=== PATIENT | female | born 1955 | race Caucasian/White ===

== ENCOUNTER 2020-06-17 17:01 | Emergency (ER) | payer MEDICARE, MEDICAID, SELFPAY ==
--- NOTE | 2020-06-17 | XR_ITS ---
EXAMINATION: LEFT HAND.. CLINICAL INFORMATION: Cat bite COMPARISON: None TECHNIQUE: 4 views FINDINGS: No fracture. No dislocation. No radiopaque foreign body. There is no air in the soft tissues. IMPRESSION: Normal left hand.
--- NOTE | 2020-06-17 | XR_ITS ---
EXAMINATION: RIGHT HAND CLINICAL INFORMATION: Cat bite COMPARISON: None TECHNIQUE: 3 views FINDINGS: No fracture. No dislocation. There is no radiopaque foreign body. Soft tissue swelling seen at the dorsum of the wrist. No air in the soft tissue. IMPRESSION: Normal right hand.
[2020-06-17 17:56] VITALS: BP 152/62; PULSE 83; RESP 16; TEMP 36.8; O2SAT 100; BMI 23.3
--- NOTE | 2020-06-17 17:56 | ED.ANIMALBIT ---
HPI - Animal Bite General Chief Complaint: Animal Bite Stated Complaint: cat scratch Time Seen by Provider: 06/17/20 17:54 History of Present Illness HPI narrative: patient complains of scratches and bites to both back of the hands and both forearms in breaking up a cat fight today The cats are her pets and are up-to-date on rabies vaccination, she is not up-to-date on tetanus immunization and does not recall her last tetanus shot Related Data Previous Rx's Medication Instructions Recorded amoxicillin-pot clavulanate 1 tab PO BID #10 tab 06/17/20 [Augmentin] Allergies Allergy/AdvReac Type Severity Reaction Status Date / Time prochlorperazine Allergy Unknown UNKNOWN Unverified 06/03/20 19:19 [From COMPAZINE] Review of Systems Review of Systems: no joint pain no numbness no weakness no discharge from wound no fever no chills PMFSH Past Medical History Medical History (Updated 06/17/20 @ 18:03 by JOVANNA Hdz) No known health problems Physical Exam Vital Signs and I&O and Narrative: Vital Signs and I&O: Vital Signs Temp 98.2 F 06/17/20 17:56 Pulse 83 06/17/20 17:56 Resp 16 06/17/20 17:56 BP 152/62 H 06/17/20 17:56 Pulse Ox 100 06/17/20 17:56 Intake & Output 06/16/20 06/17/20 06/17/20 18:59 06:59 18:59 Weight 63.503 kg Body Mass Index 23.3 there are multiple scratches and abrasions on dorsal forearms and some to dorsal hands there is no swelling, there is full range of motion in wrists hands and fingers, there is no laceration deep enough to require sutures, all is neurovascular intact distal Course Course Hospital Course: wounds are cleansed and irrigated, patient got a tetanus shot and prophylactic antibiotic Discharge Plan Discharge Clinical Impression: Cat bite involving extremity Patient Disposition: Home, Self-Care Additional Instructions: take preventative antibiotic Augmentin for 5 days You got a tetanus shot Take probiotics available [id number] to prevent antibiotic associated diarrhea Return any time for any sign of infection, swelling, redness, red stripe up arm, increased pain, fever, discharge from wound, any worse condition or any concerns Prescriptions: New amoxicillin-pot clavulanate [Augmentin] 875-125 mg tablet 1 tab PO BID Qty: 10 RF: 0
[2020-06-17] MEDS: Amoxicillin/Potassium Clav 875 MG TABLET PO (19:02)
[2020-06-17 19:50] VITALS: BP 128/69; PULSE 87; RESP 16; TEMP 36.9; O2SAT 98
== END 2020-06-17 20:30 | disposition home or self-care (01) ==
PROVIDERS: Emergency Provider Emergency Medicine Emergency Medical Services
DX: S40.872A Other superficial bite of left upper arm, initial encounter (principal); S40.871A Other superficial bite of right upper arm, initial encounter; S60.512A Abrasion of left hand, initial encounter; S60.511A Abrasion of right hand, initial encounter; S50.812A Abrasion of left forearm, initial encounter; S50.811A Abrasion of right forearm, initial encounter; W55.01XA Bitten by cat, initial encounter; Y93.89 Activity, other specified; Y92.019 Unspecified place in single-family (private) house as the place of occurrence of the external cause; Y99.9 Unspecified external cause status
CPT/HCPCS: 73110; 73130; 90471; 90715; 99284

== ENCOUNTER 2020-10-22 13:46 | Outpatient (REF) | payer MEDICARE, MEDICAID, SELFPAY | END 2020-10-22 13:47 | disposition home or self-care (01) | LOC: HO.LAB 13:46 | PROVIDERS: Visit Provider Internal Medicine | DX: Z20.822 Contact with and (suspected) exposure to COVID-19 (principal) | CPT/HCPCS: 36415; C9803; U0003; U0005 ==

== ENCOUNTER 2021-07-27 13:03 | Outpatient (REF) | payer MEDICARE, MEDICAID, SELFPAY | END 2021-07-27 13:04 | disposition home or self-care (01) | LOC: HO.LAB 13:03 | PROVIDERS: Visit Provider Internal Medicine | DX: Z20.822 Contact with and (suspected) exposure to COVID-19 (principal) | CPT/HCPCS: C9803; U0003; U0005 ==

== ENCOUNTER 2021-10-21 06:35 | Outpatient (REF) | payer MEDICARE, MEDICAID, SELFPAY ==
[2021-10-21 08:01] LABS: HDL Cholesterol 72 mg/dL
[2021-10-21 08:33] LABS: Cholesterol 198 mg/dL; LDL Cholesterol Calculated 112 mg/dl; Triglycerides 74 mg/dL
== END 2021-10-21 06:36 | disposition home or self-care (01) ==
LOC: HO.LAB 06:35
PROVIDERS: PCP Family Medicine; Visit Provider Family Medicine
DX: E04.2 Nontoxic multinodular goiter (principal)
CPT/HCPCS: 36415; 80061

== ENCOUNTER 2022-12-25 17:41 | Emergency (ER) | payer MEDICARE, MEDICAID, SELFPAY ==
[2022-12-25 18:02] VITALS: BP 158/78; PULSE 90; RESP 18; TEMP 36.7; O2SAT 99; BMI 24.0
--- NOTE | 2022-12-25 18:09 | ED.GENADULT ---
HPI - General Adult General Chief complaint: Anxiety <JOVANNA Monroe - Last Filed: 01/01/23 09:35> Stated complaint: anxiety <JOVANNA Monroe - Last Filed: 01/01/23 09:35> Time Seen by Provider: 12/25/22 20:14 <JOVANNA Monroe - Last Filed: 01/01/23 09:35> Source: patient <Bryn Pitts MD - Last Filed: 12/25/22 20:35> Mode of arrival: ambulatory <Bryn Pitts MD - Last Filed: 12/25/22 20:35> Limitations: no limitations <Bryn Pitts MD - Last Filed: 12/25/22 20:35> History of Present Illness HPI narrative: 67-year-old female with history of anxiety, reflux, postnasal drip presents with. The time where she feels like she has difficulty swelling. She notices it mostly in the evening. Can be with liquids or solids. She reports reports having to be more cerebral about thinking had a swallow. She denies any difficulty breathing or the sensation that she can not breathe due to the throat closing patient reports having started Wellbutrin 150 mg daily approximately 3 months ago for anxiety. This was recently increased approximately 3 weeks ago to 300 mg. It has helped some of her anxiety related symptoms. She was wondering if this could actually be causing her sensation of throat closing. When this does occur, she notes that her anxiety level significantly increased. She reports a significant history of reflux and is taking Nexium daily. She also reports seasonal allergies for which he takes Fartun. She reports postnasal drip on a regular basis. She currently uses saline flushes and as mentioned above Fartun but no nasal steroids. <Bryn Pitts MD - Last Filed: 12/25/22 20:35> Related Data Home medications: Previous Rx's Medication Instructions Recorded amoxicillin 875 mg-potassium 1 tab PO BID #10 tabs 06/17/20 clavulanate 125 mg tablet (Augmentin) famotidine 20 mg tablet 20 mg PO BEDTIME #30 tabs 12/25/22 fluticasone propionate 50 1 spray intranasal DAILY #16 grams 12/25/22 mcg/actuation nasal spray,suspension (Flonase Allergy Relief) <JOVANNA Monroe - Last Filed: 01/01/23 09:35> Allergies/adverse reactions: Allergies Allergy/AdvReac Type Severity Reaction Status Date / Time prochlorperazine Allergy Unknown UNKNOWN Verified 06/17/20 18:19 [From COMPAZINE] <JOVANNA Monroe - Last Filed: 01/01/23 09:35> [facility] Past Medical History Medical History: Medical History No known health problems <JOVANNA Monroe - Last Filed: 01/01/23 09:35> Social History Social History: Social History Alcohol intake: never Advance Directives: No Advance Directives Information Provided: No <JOVANNA Monroe - Last Filed: 01/01/23 09:35> Physical Exam ED Vital Signs: Vital Signs - 24 hr 12/25/22 18:02 Temperature 98.0 F Pulse Rate 90 Respiratory Rate 18 Blood Pressure 158/78 H Pulse Oximetry 99 Oxygen Delivery Method Room Air BMI result Body Mass Index 24.0 <JOVANNA Monroe - Last Filed: 01/01/23 09:35> Vital Signs - 24 hr 12/25/22 18:02 Temperature 98.0 F Pulse Rate 90 Respiratory Rate 18 Blood Pressure 158/78 H Pulse Oximetry 99 Oxygen Delivery Method Room Air BMI result Body Mass Index 24.0 <Bryn Pitts MD - Last Filed: 12/25/22 20:35> GEN: Well developed, no acute distress, alert, oriented HEENT: Normocephalic, atraumatic, normal external ears, nose appears normal, slight cobblestoning of the oropharynx, no tonsillar enlargement or exudate. There is no evidence of or pharyngeal edema. There is no wheezing or stridor. Eyes: Normal to appearance Neck: Supple, 1 small left-sided anterior cervical lymphadenopathy, no thyromegaly, trachea mobile Respiratory: Talks in complete sentences, no respiratory distress Extremities: No clubbing cyanosis or edema Neurologic: No focal neurologic deficits, cranial nerves 2-12 intact, gait normal Skin: No rash <Brny Pitts MD - Last Filed: 12/25/22 20:35> Course Course Course Narrative: RME: 67 yold female with pmh of anixety presents to the ED for increased anxiety and has throat tightness when she has aneity. patient was sent by DECATING MACHINE OPERATOR to make sure no anyphylaxis. patient denies no rash, chest pain, shortness of breath, itchiness, fever, or chills. patient has had normal swallowing test last year. denies choking on food. patient presently is asympomatic. Oral exam is normal. negative for swelling of lips, uvula, or tongue. skin negative for rahs <JOVANNA Monroe - Last Filed: 01/01/23 09:35> Reevaluation(s) Reevaluation #1: Patient's symptoms are most likely related to either reflux and or postnasal drip. Patient also has recently started significant dose of NSAIDs for left wrist related problems. Patient is already on Nexium. She will add famotidine at night. I have also recommended starting Flonase daily on top of her Fartun. <Bryn Pitts MD - Last Filed: 12/25/22 20:35> Time: 20:32 <Bryn Pitts MD - Last Filed: 12/25/22 20:35> Medical Decision Making Medical Decision Making MDM Narrative: 67-year-old female presents with. Of difficulty swallowing. This occurs mostly at night. Examination revealed no oropharyngeal edema, erythema, cyclops sounding was noticed. There is no thyromegaly. Her trachea was mobile, a slight lymphadenopathy in left anterior cervical chain. I suspect that her symptoms are mostly related to postnasal drip and/or reflux. We have talked about adding H2 dong and nasal steroid. We also talked about adding a pillow at night for gravity. She will continue nasal is saline rinses. She will follow-up with her primary care provider. <Bryn Pitts MD - Last Filed: 12/25/22 20:35> Differential Diagnosis Differential Diagnoses: The differential diagnosis associated with the presentation includes (Reflux, postnasal drip, allergies, sulfa GS spasm, anxiety, stress) <Bryn Pitts MD - Last Filed: 12/25/22 20:35> Tests considered The following testing was considered but not selected: Ultrasound, soft tissue x-ray <Bryn Pitts MD - Last Filed: 12/25/22 20:35> Discharge Plan Discharge Clinical Impression: Difficulty in swallowing <JOVANNA Monroe - Last Filed: 01/01/23 09:35> Patient Disposition: Home, Self-Care <JOVANNA Monroe - Last Filed: 01/01/23 09:35> Instructions: Dysphagia (ED) <JOVANNA Monroe - Last Filed: 01/01/23 09:35> Additional Instructions: On top of your current therapy, I am recommending Flonase on a daily basis for possible postnasal drip. I am also recommending adding famotidine 20 mg at night for reflux related symptoms. He should continue her your Fartun as well as your Nexium. <JOVANNA Monroe - Last Filed: 01/01/23 09:35> Prescriptions: New famotidine 20 mg tablet 20 mg PO BEDTIME Qty: 30 0RF fluticasone propionate [Flonase Allergy Relief] 50 mcg/actuation spray,suspension 1 spray intranasal DAILY Qty: 16 0RF Rx Instructions: administer into each nostril No Action amoxicillin-pot clavulanate [Augmentin] 875-125 mg tablet 1 tab PO BID Qty: 10 0RF Rx Instructions: 1 tablet twice a day for 5 days to prevent infection <JOVANNA Monroe - Last Filed: 01/01/23 09:35> Referrals: Physician,Unknown J [Primary Care Provider] - <JOVANNA Monroe - Last Filed: 01/01/23 09:35> Interventions: ED Discharge Assessment Last Done: 12/25/22 20:51 <JOVANNA Monroe - Last Filed: 01/01/23 09:35> Discharge Date/Time: 12/25/22 20:52 <JOVANNA Monroe - Last Filed: 01/01/23 09:35>
[2022-12-25 20:40] VITALS: BP 161/57; PULSE 76; RESP 18; TEMP 36.7; O2SAT 99
== END 2022-12-25 20:52 | disposition home or self-care (01) ==
PROVIDERS: Emergency Provider Emergency Medicine
DX: R13.10 Dysphagia, unspecified (principal); F41.1 Generalized anxiety disorder; F43.0 Acute stress reaction; Z79.899 Other long term (current) drug therapy
CPT/HCPCS: 99282; 99283

== ENCOUNTER 2025-07-27 20:57 | Inpatient (IN) | payer MEDICARE, SELFPAY ==
--- NOTE | ~2025-07-27 | XR_ITS ---
CLINICAL HISTORY: constipation x 1 week 1 view abdomen Comparison: None provided Findings: No pneumoperitoneum or pneumatosis. Mild fecal loading in the right colon. No abnormal calcifications. No acute fractures. IMPRESSION: The bowel gas pattern is within normal limits. Mild fecal loading in the right colon. This document has been electronically signed by: Fernando Leija MD on 07/27/2025 22:18:30
--- NOTE | ~2025-07-27 | CT_ITS ---
CLINICAL HISTORY: RLQ abd pain CT abdomen and pelvis with contrast Comparison: CR - XR KUB - 07/27/25 21:55 EST Findings: The lung bases are clear. There are small cysts within the left kidney. Kidneys enhance symmetrically and there is no hydronephrosis. No bowel obstruction, pneumoperitoneum, or pneumatosis. Uterus and adnexa are unremarkable. The appendix is retrocecal, measures up to 8 mm and mildly hyperemic. Series 7, image 33. No significant periappendiceal stranding. No free fluid. No abscess. The bones are intact. IMPRESSION: Borderline enlarged and mildly hyperemic appendix. Findings are equivocal, but could represent early appendicitis. This document has been electronically signed by: Fernando Leija MD on 07/28/2025 02:38:51
[2025-07-27 21:06] VITALS: BP 122/57; PULSE 112; RESP 16; TEMP 37; O2SAT 95; BMI 22.2
--- NOTE | 2025-07-27 21:11 | ECG_ITS ---
Test Reason : ABDOMINAL PAIN Blood Pressure : */* mmHG Vent. Rate : 101 BPM Atrial Rate : 101 BPM P-R Int : 144 ms QRS Dur : 134 ms QT Int : 386 ms P-R-T Axes : 71 89 34 degrees QTcB Int : 500 ms Sinus tachycardia with frequent Premature ventricular complexes Right bundle branch block Abnormal ECG No previous ECGs available Referred By: Generic ED Physician Electronically Signed By: ENRIQUE BAUTISTA MD
[2025-07-27 21:44] LABS: Hematocrit 42.8 % (37.0-47.0); Hemoglobin 14.5 g/dl (12.0-16.0); Imm Gran Abs Auto 0.02 X10*3/uL (0.00-0.03); Imm Gran Pct Auto 0.2 % (0.0-0.4); Lymphocytes Absolute Auto 0.3 X10*3/uL (1.2-4.9); MANUAL DIFF FLAG SCAN; Mean Corpuscular HGB Conc 33.9 g/dl (31.0-35.0); Mean Corpuscular Hemoglobin 31.0 pg (27.0-33.0); Mean Corpuscular Volume 91.5 fL (80.0-98.0); NRBC Abs Auto 0.000 X10*3/uL (0.0-0.012); NRBC Pct Auto 0.0 /100WBC (0.0-0.2); Platelet Count 304 X10*3/uL (160-400); Red Blood Count 4.68 X10*6/uL (4.20-5.50); SCAN SMEAR FLAG 1; White Blood Count 11.3 X10*3/uL (4.8-10.8)
[2025-07-27 21:50] LABS: Alanine Aminotransferase 16 U/L (0-31); Albumin Level 4.5 g/dL (3.5-5.0); Alkaline Phosphatase 64 U/L (39-117); Anion Gap 14 (12-20); Aspartate Amino Transferase 21 U/L (5-31); Blood Urea Nitrogen 9 mg/dL (9-16); Calcium 9.7 mg/dL (8.4-10.2); Carbon Dioxide 24 mmol/L (22-29); Chloride 106 mmol/L (96-108); Creatinine Clr Calc Pharmacy 63.8; Estimated Glomerular Filt Rate > 60; Lipase 13 U/L (8-78); Magnesium 1.9 mg/dL (1.6-2.6); Potassium 3.7 mmol/L (3.3-5.1); Sodium 140 mmol/L (135-145); Total Protein 7.2 g/dL (6.5-8.0)
[2025-07-27 21:57] LABS: Troponin-I High Sensitivity 3.1 ng/L (<3.5-17.0)
--- OUTSIDE RECORDS SUMMARY | 2025-07-27 22:05 | XMS_ITS | Encounter Summary ---
Author Organization [facility] Address [address] [place] [address] Phone Care Team Providers Care Extractions Technician Name Role Phone Aliyah Broderick MD Primary Care Provider [phone] Audelia Vyas PA-C Unavailable [phone] Aliyah Broderick MD Unavailable Encounter Details Date Type Department Care Team (Late st Contact Info) Description 12/13/2022 Procedure Pass [address] [address] Social History Tobacco Use Types Packs/Day Years Used Date Smoking Tobacco: Never Smokeless Tobacco: Never Alcohol Use Standard Drinks/Week Comments Yes 5 (1 standard drink = 0.6 oz pur e alcohol) Comments No Sex and Gender Information Value Date Recorded Sex Assigned at Female 01/04/2022 2:29 AM EDT Legal Sex Female 9:20 AM EST Gender Identity Female 01/04/2022 2:29 AM EDT Sexual Orientation Not on file documented as of this encounter Plan of Treatment Upcoming Encounters Date Type Department Care Team (Late st Contact Info) Description 09/16/2025 1:45 PM EST Appointment [address] [address] Aliyah Broderick MD [address] [facility] [address] [place] [address] [email or web address] 11/25/2025 2:00 PM EDT Office Visit [facility] [place] [facility] [address] [place] [address] Aliyah Broderick MD [address] [address] [email or web address] documented as of this encounter Visit Diagnoses Not on filedocumented in this encounter Additional Health Concerns Assessment Noted Time PHQ-9 Depression Total Score: 9 02/16/20 23 12:42 PM EDT PHQ-2 Depression Total Score: 2 02/16/20 23 12:42 PM EDT documented as of this encounter Care Teams Extractions Technician Relationship Specialty Start Date End Date Aliyah Broderick MD [address] [address] PCP - General Family Medicine 10/03/21 Audelia Vyas PA-C [address] [place] [address] Physician Chef Head Hematology 11/15/21 Aliyah Broderick MD [address] [place] [phone] Insurance Assigned Provider 12/22/23 06/27/25 documented as of this encounter Additional Source Comments The information contained in this document represents components of the legal health record. It is not the complete legal health record.[facility]
[2025-07-27 22:06] VITALS: BP 145/50; PULSE 94; RESP 16; TEMP 37.4; O2SAT 96
--- OUTSIDE RECORDS SUMMARY | 2025-07-27 22:06 | XMS_ITS | Encounter Summary ---
Author Organization [facility] Address [address] [address] Phone Care Team Providers Care Panel Machine Operator Name Role Phone Aliyah Broderick MD Primary Care Provider [phone] Audelia Vyas PA-C Unavailable [phone] Aliyah Broderick MD Unavailable Encounter Details Date Type Department Care Team (Late st Contact Info) Description 01/04/2022 Procedure Pass [facility] Admitting Dept Virtual Department [address] [place] [address] Social History Tobacco Use Types Packs/Day Years [...] on file documented as of this encounter Functional Status * Calculated C-SSRS Risk Score (Lifetime/Recent) Answer Date of Assessment Author No Risk Indicated 01/04/2022 2:27 AM EDT Marshall Shabazz RN * [place] Suicide Severity Rating Scale (Screener/Recent Self-Report) Question Answer Date of Assessment Author 1. Wish to be (Past 1 Month) No 022 2:27 AM EDT Cliff Shabazz RN 2. Non-Specific Active Suici gayatri Thoughts (Past 1 Month) No 01/04/2022 2:27 AM EDT Cliff Shabazz, RN 6. Suicidal Behavior (Lifetime) No 2 2:27 AM EDT Cliff Shabazz RN documented as of this encounter Plan of Treatment Upcoming Encounters Date Type Department Care Team (Late st Contact Info) Description 09/16/2025 1:45 PM EST Appointment [facility] [address] [place] [address] Aliyah Broderick MD [address] [place] [address] [email or web address] 11/25/2025 2:00 PM EDT Office Visit [facility] [address] [place] [phone] Aliyah Broderick MD [address] [place] [phone] documented as of this encounter Visit Diagnoses Not on filedocumented in this encounter Care Teams Panel Machine Operator Relationship Specialty Start Date End Date Aliyah Broderick MD [address] [place] [address] PCP - General Family Medicine 10/03/21 Audelia Vyas PA-C [address] [place] [email or web address] Physician Customer Service Officer Hematology 11/15/21 Aliyah Broderick MD [address] [place] [phone] Insurance Assigned Provider 12/22/23 06/27/25 documented as of this encounter Additional Source Comments The information contained in this document represents components of the legal health record. It is not the complete legal health record.[facility]
--- OUTSIDE RECORDS SUMMARY | 2025-07-27 22:06 | XMS_ITS | Encounter Summary ---
Author Organization [facility] Address [address] [place] [address] Phone Care Team Providers Care Pharmaceutical Sales Representative Name Role Phone Aliyah Broderick MD Primary Care Provider [phone] Audelia Vyas PA-C Unavailable [phone] Aliyah Broderick MD Unavailable Encounter Details Date Type Department Care Team (Late st Contact Info) Description 10/27/2021 Procedure Pass [address] [address] Social History Tobacco Use Types Packs/Day Years Used Date Smoking Tobacco: Never Smokeless Tobacco: Never Alcohol Use Standard Drinks/Week Comments Yes 0 (1 standard drink = 0.6 oz pur e alcohol) Rare Comments No Sex and Gender Information Value Date Recorded Sex Assigned at Female 01/04/2022 2:29 AM EDT Legal Sex Female 9:20 AM EST Gender Identity Female 01/04/2022 2:29 AM EDT Sexual Orientation Not on file documented as of this encounter Plan of Treatment Upcoming Encounters Date Type Department Care Team (Late st Contact Info) Description 09/16/2025 1:45 PM EST Appointment [address] [address] Aliyah Broderick MD 15 [facility] [address] [place] [address] 11/25/2025 2:00 PM EDT Office Visit [facility] [place] [facility] [address] [place] [address] Aliyah Broderick MD 15 [facility] [place] [address] [email or web address] documented as of this encounter Visit Diagnoses Not on filedocumented in this encounter Care Teams Pharmaceutical Sales Representative Relationship Specialty Start Date End Date Aliyah Broderick MD 15 [facility] [place] [address] PCP - General Family Medicine 10/03/21 Audelia Vyas PA-C [address] [place] [phone] Physician Director Of Software Development Hematology 11/15/21 Aliyah Broderick MD [address] [address] Insurance Assigned Provider 12/22/23 06/27/25 documented as of this encounter Additional Source Comments The information contained in this document represents components of the legal health record. It is not the complete legal health record.[facility]
--- OUTSIDE RECORDS SUMMARY | 2025-07-27 22:06 | XMS_ITS | Encounter Summary ---
Author Organization [facility] Address [address] [place] [address] Phone Care Team Providers Care Dramatic Teacher Name Role Phone Aliyah Broderick MD Primary Care Provider [phone] Audelia Vyas PA-C Unavailable [phone] Aliyah Broderick MD Unavailable Encounter Details Date Type Department Care Team (Late Contact Info) Description 10/27/2021 Ancillary Orders [facility],Outside Imaging [address] [place] [address] System, Provider Not In, [place] [address] Social History Tobacco Use Types Packs/Day Years Used Date Smoking Tobacco: Never Smokeless Tobacco: Never Alcohol Use Standard Drinks/Week Comments Yes 0 (1 standard drink = 0.6 oz pur e alcohol) Rare Comments Unknown Sex and Gender Information Value Date Recorded Sex Assigned at Female 01/04/2022 2:29 AM EDT Legal Sex Female 9:20 AM EST Gender Identity Female 01/04/2022 2:29 AM EDT Sexual Orientation Not on file documented as of this encounter Plan of Treatment Upcoming Encounters Date Type Department Care Team (Late Contact Info) Description 09/16/2025 1:45 PM EST Appointment [facility], [facility] [address] [place] [address] Aliyah Broderick MD 15 [facility] [address] [place], [place] [phone] 11/25/2025 2:00 PM EDT Office Visit [facility] [place] [facility] [address] [place] [address] Aliyah Broderick MD [address] [facility] [address] [place] [address] [email or web address] documented as of this encounter Results * Mammogram Outside (No Interpretation) (11/18/2020 12:00 AM EST) Narrative SYSTEMGENERATED, DOCUMENTATION - 10/27/2021 5:20 PM EST This study is for PACS storage only and not for interpretation. us Provider Not In System PhD IMG OUTSIDE IMAGING W /OUT INTERPRETATION Final Result * Mammogram Outside (No Interpretation) (10/20/2019 12:00 AM EST) Narrative SYSTEMGENERATED, DOCUMENTATION - 10/27/2021 5:20 PM EST This study is for PACS storage only and not for interpretation. us Provider Not In System PhD IMG OUTSIDE IMAGING W /OUT INTERPRETATION Final Result * Mammogram Outside (No Interpretation) (10/17/2018 12:00 AM EST) Narrative SYSTEMGENERATED, DOCUMENTATION - 10/27/2021 5:18 PM EST This study is for PACS storage only and not for interpretation. us Provider Not In System PhD IMG OUTSIDE IMAGING W /OUT INTERPRETATION Final Result * Mammogram Outside (No Interpretation) (09/06/2017 12:00 AM EST) Narrative SYSTEMGENERATED, DOCUMENTATION - 10/27/2021 5:19 PM EST This study is for PACS storage only and not for interpretation. us Provider Not In System PhD IMG OUTSIDE IMAGING W /OUT INTERPRETATION Final Result * Mammogram Outside (No Interpretation) (08/31/2016 12:00 AM EST) Narrative SYSTEMGENERATED, DOCUMENTATION - 10/27/2021 5:19 PM EST This study is for PACS storage only and not for interpretation. us Provider Not In System PhD IMG OUTSIDE IMAGING W /OUT INTERPRETATION Final Result * Mammogram Outside (No Interpretation) (08/17/2015 12:00 AM EST) Narrative SYSTEMGENERATED, DOCUMENTATION - 10/27/2021 5:17 PM EST This study is for PACS storage only and not for interpretation. us Provider Not In System PhD IMG OUTSIDE IMAGING W /OUT INTERPRETATION Final Result documented in this encounter Visit Diagnoses Not on filedocumented in this encounter Care Teams Dramatic Teacher Relationship Specialty Start Date End Date Aliyah Broderick MD [address] [address] PCP - General Family Medicine 10/03/21 Audelia Vyas PA-C [address] [place] [id number] Physician Share Holder Hematology 11/15/21 Aliyah Broderick MD [address] [address] Insurance Assigned Provider 12/22/23 06/27/25 documented as of this encounter Additional Source Comments The information contained in this document represents components of the legal health record. It is not the complete legal health record.[facility]
--- OUTSIDE RECORDS SUMMARY | 2025-07-27 22:06 | XMS_ITS | Encounter Summary ---
Author Organization [facility] Address [address] [place] [phone] Phone Care Team Providers Care Street Inspector Name Role Phone Aliyah Broderick MD Primary Care Provider [phone] Audelia Vyas PA-C Unavailable [phone] Aliyah Broderick MD Unavailable Encounter Details Date Type Department Care Team (Latest Contact Info) Description 03/28/2022 Transcribe Orders Virtual Department [address] [place] [address] [phone] Yuly Recio, PHARMACY ASSISTANT [address] [place] [address] [phone] [email or web address] Dysphagia, unspecified type (Primary Dx); Gastroesophageal reflux disease without esophagitis Social History Tobacco Use Types Packs/Day Years [...] Info) Description 09/16/2025 1:45 PM EST Appointment [facility] - [address] [address] Aliyah Broderick MD [address] [facility] [address] [place] [address] [email or web address] 11/25/2025 2:00 PM EDT Office Visit [facility] [address] [facility] [address] [place] [address] Aliyah Broderick MD [address] [facility] [address] [place] [address] [email or web address] documented as of this encounter Results * FL (Speech) Video Swallow Study (05/15/2022 10:20 AM EDT) Anatomical Region Laterality Modality Radio Fluoroscop y 05/15/2022 2:26 PM EDT Impressions 05/15/2022 2:27 PM EDT No penetration or aspiration demonstrated. Please see Department of Speech and Language Pathology report for further details. Fluoroscopy Time: One minute and 43 seconds 640 fluoroscopic images saved Narrative 05/15/2022 2:27 PM EDT FL (SPEECH) VIDEO SWALLOW STUDY History: Dysphagia COMPARISON: There are no prior studies available for comparison TECHNIQUE: Fluoroscopic assistance was provided to the speech therapist during administration of various consistencies of barium. FINDINGS: The oral and pharyngeal stages of swallowing will be reported separately by the Department of Speech and Language Pathology. No penetration or aspiration demonstrated. Procedure Note Aemlia Shabazz MD - 05/15/2022 FL (SPEECH) VIDEO SWALLOW STUDY History: Dysphagia COMPARISON: There are no prior studies available for comparison TECHNIQUE: Fluoroscopic assistance was provided to the speech therapistduring administration of various consistencies of barium. FINDINGS: The oral and pharyngeal stages of swallowing will be reported separatelyby the Department of Speech and Language Pathology. No penetration or aspiration demonstrated. IMPRESSION: No penetration or aspiration demonstrated. Please see Department of Speech and Language Pathology report for furtherdetails. Fluoroscopy Time: One minute and 43 seconds 640 fluoroscopic images saved Ishan Scott MD IMG FL EXAMS Final Result documented in this encounter Visit Diagnoses Diagnosis Dysphagia, unspecified type- Primary Gastroesophageal reflux disease without esophagitis Esophageal reflux Dysphagia, unspecified type- Primary Gastroesophageal reflux disease without esophagitis Esophageal reflux documented in this encounter Care Teams Street Inspector Relationship Specialty Start Date End Date Aliyah Broderick MD [address] [place] [id number] [email or web address] PCP - General Family Medicine 10/03/21 Audelia Vyas PA-C [address] [place] [email or web address] Physician Chemical Research Engineer Hematology 11/15/21 Aliyah Broderick MD [address] [place] [phone] Insurance Assigned Provider 12/22/23 06/27/25 documented as of this encounter Additional Source Comments The information contained in this document represents components of the legal health record. It is not the complete legal health record.[facility]
--- OUTSIDE RECORDS SUMMARY | 2025-07-27 22:06 | XMS_ITS | Clinical Summary ---
Author Organization [facility] Address [address] [address] Phone Care Team Providers Care Head Machinist Name Role Phone Aliyah Broderick MD Primary Care Provider [phone] Audelia Vyas PA-C Unavailable [phone] Allergies Active Allergy Reactions Criticality Noted Date Comments Prochlorperazine Edisylate Dystonia High 0 Medications esomeprazole (NEXIUM) 20 MG capsule Take 20 mg by mouth daily before breakfast. Active aspirin 81 MG EC tablet Take 81 mg by mouth daily. Active cetirizine (ZYRTEC) 10 MG tablet Take 10 mg by mouth daily. Active methylcellulose (CITRUCEL ORAL) Take by mouth. Active fluticasone propionate (FLONASE) 50 mcg/actuation nasal spray SPRAY 1 SPRAY BY NASAL ROUTE EVERY DAY 32 mL 1 3 Active calcium carbonate-vitam in D3 500 mg-400 units per tablet Take 1 tablet by mouth daily. Active Bacillus coagulans-inuli n 1 billion-250 cell-mg Cap Take 250 mg by mouth daily. Active estradioL (ESTRACE) 0.01 % (0.1 mg/gram) vaginal cream Place 2 g vaginally daily. X 2 weeks then decrease to twice weekly 42.5 g 1 4 Active levoFLOXacin (LEVAQUIN) 500 MG tablet Take 1 tablet (500 mg total) by mouth daily. 3 tablet 5 Active famotidine (PEPCID) 20 MG tablet TAKE 1 TABLET BY MOUTH TWICE A DAY 180 tablet 1 5 Active buPROPion (WELLBUTRIN XL) 300 MG ER 24 hr tabletIndicatio ns:Moderate episode of recurrent major depressive disorder TAKE 1 TABLET BY MOUTH EVERY DAY 90 tablet 3 5 Active escitalopram oxalate (LEXAPRO) 10 MG tabletIndicatio ns:Moderate episode of recurrent major depressive disorder TAKE 1 TABLET BY MOUTH EVERY DAY 90 tablet 1 5 Active Active Problems Problem Noted Date Diagnosed Date Caregiver with fatigue 03/12/2024 Assessment & Plan (11/11/2024 9:26 AM EST): We can check labs today, Sounds like she is not eating well which could certianly contribute to her fatigue, although I think mood is also playing a role. Pt agrees and understands. Assessment & Plan (03/12/2024 2:16 PM EDT): FMLA paperwork for intermittent leave completed during visit Dyspareunia in female 11/07/2023 Assessment & Plan (11/07/2023 1:43 PM EST): We discussed risks and benefits and potential side effects of using vaginal estradiol. I encouraged her to do this because I do think that her sexual health would benefit from the addition of estradiol. Moderate episode of recurrent major depressive d isorder 11/16/2022 Assessment & Plan (11/11/2024 9:26 AM EST): Depression notable, positive phq 9. Pt declines therapy or medication adjustment. Encouraged return at any time. Assessment & Plan (11/07/2023 1:44 PM EST): We are going to increase the Wellbutrin to 300 mg and decrease the Lexapro to 10 mg to see if this can help with some of the sexual dysfunction. I advised patient that if she notes worsening mood or increased anxiety that we can go back to her current medication profile but at this time both she and I think she is stable enough to begin to adjust these medications. Assessment & Plan (11/16/2022 9:03 AM EST): Discussed medications with patient. Discussed SSRIs but I also discussed Wellbutrin with her. I actually think this would be a better option for her given her history of TBI and some difficulty with executive function task management and feelings of overwhelm. She is also agreed to start to engage with therapy for very specific work around setting boundaries particularly with family. I think this is a good opportunity to do some short-term therapy with our in-house COMPENSATION EXPERT Discussed risks benefits, potential side effects and how to take Wellbutrin. Patient will follow-up in 2 to 3 weeks. Major depressive disorder, single episode, moder ate 11/17/2021 Assessment & Plan (11/17/2021 10:51 AM EST): Encouraged a healthy diet, avoidance of excess sugar, daily outdoor time and cardiovascular activity. If she wants to revisit the idea of medication please come back in to see me. Pharyngoesophageal dysphagia 11/14/2021 Assessment & Plan (11/14/2021 3:34 PM EST): Multiple things that can contribute all to which she has chronic post nasal drip, GERD, thyroid. Gastroesophageal reflux disease 11/14/2021 Assessment & Plan (11/14/2021 3:34 PM EST): Taking nexium, getting endoscopy scheduled may also be worsening the dysphagia. Multinodular thyroid 10/09/2021 Assessment & Plan (11/11/2024 9:27 AM EST): Ultrasound in 2021 did not indicate any need for follow up. If TSH abnormal will recheck US> Assessment & Plan (11/17/2021 10:51 AM EST): Reviewed results of ultrasound with patient she will need yearly follow-up for a T4 level finding. Encounter for screening for cardiovascular disor ders 10/09/2021 Family history of thrombosis in first degree rel ative 10/09/2021 Assessment & Plan (11/17/2021 10:53 AM EST): Very strong family history of clotting disorder, continue on aspirin. I would like her to see hematology for further evaluation and she agrees. Assessment & Plan (10/09/2021 7:23 PM EST): Such a very strong hx of thromboembolic disease, I do think that Brenda should have evaluation. Unclear what type of work up mom had and I am going refer Brenda to hematology for evaluation. Certainly continue on baby asa Encounters Date Type Department Care Team Description 06/17/2025 6:01 PM EDT - 06/17/2025 8:10 PM EDT Emergency [facility] [address] [place] [address] Sheryl Yen MD, PhD Discharge Disposition: Home or Self Care 05/05/2025 Refill [facility] [address] [facility] [address] [place] [address] Aliyah Broderick MD Medication Refill from Last 3 Months Immunizations Immunization Administration Dates Next Due COVID-19 (Pre-07/09) Moderna Vaccine, mRNA, PF 1 10/26/2020 Influenza High-Dose Quadrivalent Preservative Fr ee IM 06/25/2023,07/17/2022 Influenza High-Dose Trivalent Preservative Free IM 09/30/2024 Influenza Quadrivalent MDCK w/Preservative IM Influenza Quadrivalent Preservative Free IM 09/2020,10/26/2018 Influenza Recombinant Matty valent Preservative Free IM 05/25/2020 Pneumococcal polysaccharide PPSV23 10/03/2021 Tdap 06/17/2025,06/17/2020 Family History Medical History Relation Comments Deep vein thrombosis Brother Deep vein thrombosis Maternal Grandmother Deep vein thrombosis Mother Relation Status Comments Brother Alive Maternal Grandmother Alive Mother Alive Social History Tobacco Use Types Packs/Day Years Used Date Smoking Tobacco: Never Smokeless Tobacco: Never Tobacco Cessation:Counseling Given: Not Answered Alcohol Use Standard Drinks/Week Comments Yes 5 (1 standard drink = 0.6 oz pur e alcohol) Child or Family Care Answer Date Record ed Do you have problems with on e of the following making it difficult for you to work, study, or receive health care? No 10/31/2023 Education Answer Date Recorded Are you interested in more education? Not on rhonda e 01/12/2023 Are you concerned about learning? Not on file 01/12/2023 No 01/12/2023 No 01/12/2023 Food Answer Date Recorded Within the past 6 months we worried whether our food would run out before we got money to buy more. Never True 10/31/2023 Within the past 6 months the food we bought just didn't last and we didn't have enough money to get more. Never True Residential Stability Answer Date Recor ded What is your housing situation today? I have grupo sing 10/31/2023 How many times have you move d in the past 12 months? Zero (I did not move) 10/31/2023 Paying for Meds Answer Date Recorded Do you have trouble paying for medicines? No 10/31/2023 Paying Utility Bills Answer Date Record ed Do you have trouble paying your heating or elect ricity bill? No 10/31/2023 Transportation Answer Date Recorded Has the lack of transportati on kept you from medical appointments or from getting medications? No 10/31/2023 Digital Access Answer Date Recorded No 10/31/2023 Yes 10/31/2023 Do you have reliable internet access at home? Ye s 10/31/2023 Do you have a device (e.g., phone, tablet, computer) with a working camera? Yes 10/31/2023 Intimate Partner Violence Answer Date R ecorded Are you denied basic needs s uch as food, clothing, or medical care? No 06/17/2025 In the past 12 months have y ou been in a relationship with a person who hurts, threatens, or tries to control you? No 06/17/2025 Are you denied basic needs s uch as food, clothing, or medical care? No 06/17/2025 In the past 12 months have y ou been in a relationship with a person who hurts, threatens, or tries to control you? No 06/17/2025 Comments No Sex and Gender Information Value Date Recorded Sex Assigned at Female 01/04/2022 2:29 AM EDT Legal Sex Female 9:20 AM EST Gender Identity Female 01/04/2022 2:29 AM EDT Sexual Orientation Not on file Last Filed Vital Signs Vital Sign Reading Time Taken Comments Blood Pressure 157/75 06/17/2025 7:46 PM EDT Pulse 68 06/17/2025 7:46 PM EDT Temperature 36.4 C (97.5 F) 06/17/2025 7:46 PM EDT Respiratory Rate 16 06/17/2025 7:46 PM EDT Oxygen Saturation 96% 06/17/2025 7:46 PM EDT Inhaled Oxygen Concentration - - Weight 62.6 kg (138 lb) 06/17/2025 4:50 PM EDT Height 165.1 cm (5' 5 ) 06/17/2025 4:50 PM EDT Body Mass Index 22.96 06/17/2025 4:50 PM EDT Plan of Treatment Upcoming Encounters Date Type Department Care Team (Late st Contact Info) Description 09/16/2025 1:45 PM EST Appointment [facility] - [address] [address] Aliyah Broderick MD [address] [place] [phone] [email or web address] 11/25/2025 2:00 PM EDT Office Visit [facility] [address] [facility] [address] [place] [address] Aliyah Broderick MD [address] [place] [phone] [email or web address] Health Maintenance Due Date Last Done Comments COLOGUARD 2001 FIT TEST 2001 FOBT 2001 SIGMOIDOSCOPY 2001 VIRTUAL COLONOSCOPY 2001 ZOSTER VACCINES (1 of 2) 2006 OSTEOPOROSIS SCREENING INITIAL (ONE-TIME) 2021 PNEUMOCOCCAL VACCINES (50+ years) (2 of 2 - PCV) 10/03/2022 10/03/2021 REPEAT PHQ 12/08/2024 11/10/2024, 11/10/2024 MAMMOGRAM 02/15/2025 02/15/2023, 03/0 04/2022, 11/18/2020, Additional history exists INFLUENZA VACCINE (#1) 2025 5, 06/25/2023, 06/25/2023, Additional history exists COVID-19 VACCINE (2024- season) 2025 09/30/2024, 06/25/2023, 07/17/2022, Additional history exists DEPRESSION SCREENING 11/10/2025 11/10/2024, 11/10/19 25 LIPID PANEL 10/21/2026 10/21/2021 RSV VACCINE (1 - 1-dose 75+ series) 2031 COLONOSCOPY 01/05/2032 01/04/2022 COLORECTAL CANCER SCREENING 01/05/2032 Adult Td,Tdap Booster 06/17/2035 06/17/2025, 020 HEPATITIS C SCREENING Completed 11/10/2024, 025 SMOKING STATUS SCREENING (Once After 26 Yrs) Completed 11/10/2024 HEPATITIS A VACCINES Aged Out No long er eligible based on patient's age to complete this topic HIB VACCINES Aged Out No longer eligi ble based on patient's age to complete this topic IPV VACCINES Aged Out No longer eligi ble based on patient's age to complete this topic MENINGOCOCCAL VACCINES (ACWY) Aged Out No longer eligible based on patient's age to complete this topic MENINGOCOCCAL VACCINES (B) Aged Out N o longer eligible based on patient's age to complete this topic Medical Devices Not on file Procedures Procedure Name Priority Date/Time Associated Diagnosis Comments HEPATITIS C ANTIBODY, QUALITATIVE Routine 11/10/2024 3:32 PM EST Need for hepatitis C screening test BI MAMMOGRAM SCREENING WITH TOMOSYNTHESIS WITH CAD (BILATERAL) Routine 02/15/2023 3:39 PM EDT Other screening mammogram ENDOSCOPY, COLON 01/04/2022 11:0 7 AM EDT from Last 3 Months or Most Recently Relevant to Health Maintenance Results * Hepatitis C antibody, qualitative (11/10/2024 3:32 PM EST) HCV NON-REACTIV E NON-REACTI VE [facility] Blood 11/10/2024 3:32 PM EST 11/10/2024 3:33 PM EST us Aliyah Broderick MD LAB BLOOD BKR ORDERABLES Final R esult [address] [address] * BI MAMMOGRAM SCREENING WITH TOMOSYNTHESIS WITH CAD (BILATERAL) (02/15/2023 3:39 PM EDT) Anatomical Region Laterality Modality Breast Left, Breast Right, Breast Bilateral Bila teral Mammography 02/15/2023 3:35 PM EDT Impressions 02/15/2023 3:53 PM EDT No findings suspicious for malignancy are identified. In the absence of a worrisome palpable abnormality, annual screening mammography is recommended. BI-RADS CATEGORY: 1 - Negative. DENSITY: The breast tissue is heterogeneously dense, which could obscure a lesion on mammography. Narrative 02/15/2023 3:53 PM EDT AVAILABLE COMPARISON: 11/22/2021 through 08/17/2015 Bilateral 3-D tomosynthesis with 2-D reconstructions in the CC and MLO projection. Computer-aided detection system was utilized. No new mass, asymmetry, architectural distortion or suspicious calcifications have become apparent in either breast. Procedure Note Tino Toth MD - 02/15/2023 AVAILABLE COMPARISON: 11/22/2021 through 08/17/2015 Bilateral 3-D tomosynthesis with 2-D reconstructions in the CC and MLOprojection. Computer-aided detection system was utilized. No new mass, asymmetry, architectural distortion or suspiciouscalcifications have become apparent in either breast. IMPRESSION: No findings suspicious for malignancy are identified. In the absence of aworrisome palpable abnormality, annual screening mammography isrecommended. BI-RADS CATEGORY: 1 - Negative. DENSITY: The breast tissue is heterogeneously dense, which could obscurea lesion on mammography. us Aliyah Broderick MD IMG MG EXAMS Final Result * ENDOSCOPY, COLON (01/04/2022 11:07 AM EDT) Narrative Transcriptions Ishan Palomo MD - 01/04/2022 11:07 AM EDT Patient Name: Brenda Maciel Attending MD:: ISHAN PALOMO MD, Procedure Date: 01/04/2022 11:07 AM Date of : 1955 Age: 66 Admit Type: Outpatient Gender: Female Room: [place] [address] Referring MD: Aliyah Broderick Exam Type: Colonoscopy Indications: Screening for colorectal malignant neoplasm Medications: Monitored Anesthesia Care Procedure: Informed consent was obtained from the patientafter discussion of the indications, limitations, alternatives, benefits, and risks of the procedure. Risks specifically discussed include but are not limited to medication reactions, missed lesions, bleeding, perforation, or the need for emergent surgery. Throughout the procedure, the patient's blood pressure, pulse, end-tidal CO2, and oxygensaturations were monitored continuously. The Olympus pediatric variable colonoscopePCF-[id number] #1 was introduced through the anus and advanced tothe cecum, identified by appendiceal orifice andileocecal valve. The colonoscopy was performed without difficulty. The patient tolerated the procedurewell. The quality of the bowel preparation was excellent. The quality of the bowel preparation was evaluated using the BBPS ([facility] Bowel Preparation Scale)with scores of: Right Colon = 3, Transverse Colon = 3and Left Colon = 3 (entire mucosa seen well with no residual staining, small fragments of stool oropaque liquid). The total BBPS score equals 9. Anatomical landmarks were photographed. Complications: No immediate complications. Estimated blood loss:None. Findings: The perianal and digital rectal examinations were normal. Scattered small-mouthed diverticula were found inthe sigmoid colon. Internal hemorrhoids were found duringretroflexion. The hemorrhoids were mild. The exam was otherwise normal throughout theexamined colon. Impression: - Moderate diverticulosis in the sigmoid colon. - Internal hemorrhoids. - No specimens collected. Recommendation: - Discharge patient to home. - Repeat colonoscopy in 10 years for screening purposes. ISHAN PALOMO MD, 01/04/2022 11:35:01 AM This report has been signed electronically. Number of Addenda: 0 Note Initiated On: 01/04/2022 11:07 AM Procedure Code(s): --- Professional --- 31108, Colonoscopy, flexible; diagnostic, including collection of specimen(s) by brushing or washing, when performed (separateprocedure) --- Technical --- 64004, Colonoscopy, flexible; diagnostic, including collection of specimen(s) by brushing or washing, when performed (separateprocedure) Diagnosis Code(s): --- Professional --- Z12.11, Encounter for screening for malignantneoplasm of colon K64.8, Other hemorrhoids K57.30, Diverticulosis of large intestine without perforation or abscess without bleeding --- Technical --- Z12.11, Encounter for screening for malignantneoplasm of colon K64.8, Other hemorrhoids K57.30, Diverticulosis of large intestine without perforation or abscess without bleeding CPT copyright 2020 [employer]. All rights reserved. The codes documented in this report are preliminary and upon lifeline representatives reviewmay be revised to meet current compliance requirements. Procedure Date: 01/04/2022 11:07:[address] [place] [phone] us Aliyah Broderick MD GI PROCEDURE ORDERABLES Final Re sult from Last 3 Months or Most Recently Relevant to Health Maintenance Insurance MEDICARE REPLACEMENT MEDICARE REPLACEMENT MEDICARE REPLACEMENT MEDICARE REPLACEMENT MEDICARE REPLACEMENT MEDICARE REPLACEMENT [place] [id number] Care Teams Head Machinist Relationship Specialty Start Date End Date Aliyah Broderick MD [address] [place] [id number] PCP - General Family Medicine 10/03/21 Audelia Vyas PA-C [address] [place] [phone] Physician Human Factors Specialist Hematology 11/15/21 Additional Source Comments The information contained in this document represents components of the legal health record. It is not the complete legal health record.[facility]
[2025-07-27] MEDS: Lactated Ringers 1,000 ML 999 ML IV (22:55)
[2025-07-27] MEDS: diazePAM 10 MG/2 ML CARTRIDGE 5 MG IVPUSH (22:59)
[2025-07-27 23:28] VITALS: BP 137/61; PULSE 89; RESP 16; TEMP 37.4; O2SAT 95
--- NOTE | 2025-07-27 23:29 | MHC.EDTECH ---
This tech took over care of pt at 2300,rounds and vitals completed, patient spilled her CT contrast on her self and bed, complete bed/Jarred changed,, high risk measures placed at this time, pt has an unsteady gait,due to medication,chair alarm placed at this time. call sims in reach
[2025-07-28] MEDS: iohexoL 350 MG/ML 100 ML INFUS..BTL 85 ML IV (01:38)
[2025-07-28 02:08] LABS: Appearance Urine Clear; Glucose Urine UA Negative (Negative); PH 8.0 (5.0-9.0); Specific Gravity - Urine 1.025 (1.005-1.025); UMIC TRIGGER UACC YES
--- NOTE | 2025-07-28 03:13 | ED.ABDPAIN ---
HPI - Abdominal Pain General Chief Complaint: Abdominal Pain Stated Complaint: constipated, vomitting Time Seen by Provider: 07/27/25 22:06 Source: patient and RN notes reviewed Mode of arrival: ambulatory Limitations: no limitations History of Present Illness ED Provider: Dr. Myrtle Preston HPI narrative: 69-year-old female with a history of GERD presenting with periumbilical abdominal pain that is nonradiating, associated with constipation and vomiting ongoing for about a week now. States that she has not had a good bowel movement until she arrived here in the emergency department. She has been using laxatives, stool softeners and fiber additives without relief. Had some watery leakage from the rectum upon arrival to the emergency department that she describes as non bloody. No dark or tarry looking stool. Began vomiting today which is why she came to the hospital for evaluation. Foster globally weak and depleted. Appetite is extremely poor. Admits to decreased water intake. Denies associated fever. No reported chest pain or difficulty breathing. No cough or cold-type symptoms. No urinary complaints. Has been feeling relatively well prior to this. Admits she has had some IBS constipation type issues for a long time but has never had to be hospitalized for bowel problems before. No recent antibiotic use. No history of abdominal surgeries. Related Data Previous Rx's ?Medication ?Instructions ?Recorded amoxicillin 875 mg-potassium 1 tab PO BID #10 tabs 06/17/20 clavulanate 125 mg tablet (Augmentin) famotidine 20 mg tablet 20 mg PO BEDTIME #30 tabs 12/25/22 fluticasone propionate 50 1 spray intranasal DAILY #16 grams 12/25/22 mcg/actuation nasal spray,suspension (Flonase Allergy Relief) Allergies Allergy/AdvReac Type Severity Reaction Status Date / Time prochlorperazine (From Allergy Unknown UNKNOWN Verified 07/27/25 21:08 COMPAZINE) Review of Systems Review of Systems As per HPI, full review of systems performed and negative but for the above mentioned pertinent positives and negatives. PMFSH Past Medical History Medical History No known health problems Social History Social History Alcohol intake: never Smoked in Last 30 Days: No Use of substances other than those prescribed or required for medical reasons: Yes Substance Use Type: Marijuana Substance Use Frequency: Occasionally Any prior treatment program specific to substance use: No Advance Directives: No Advance Directives Information Provided: No Do you have a plan to hurt others: No Plan Physical Exam ED Exam Exam: GENERAL: Ill-Appearing, appears uncomfortable. SKIN: Normal skin color for ethnicity, warm, dry, no rashes noted. HEENT: Normocephalic, atraumatic, no stridor, dry mucous membranes, dentition intact, EOMI, PERRLA. NECK: Soft, supple, full ROM, midline structures nontender, no step-offs, no deformities, no lymphadenopathy. CHEST: Heart regular tachycardia, no murmurs, symmetric chest rise and fall. PULMONARY: Clear to auscultation bilaterally, diminished at the bases, no labored breathing, no wheezes/rhales/rhonchi. ABDOMINAL: Soft, nondistended, diffusely tender to palpation without rebound or guarding, positive bowel sounds in all quadrants, no palpable masses. : Deferred. MUSCULOSKELETAL: Normal tone, full range of motion, no deformities, no peripheral edema. NEURO: Alert and oriented x3, CN II through XII intact, equal strength and sensation bilateral upper and lower extremities, no focal neurologic deficits. PSYCHIATRIC: Flat affect, fluid speech, good eye contact and appropriate demeanor. Vital Signs: Vital Signs - 24 hr 07/27/25 21:06 07/27/25 22:06 07/27/25 23:28 Temperature 98.6 F 99.3 F 99.3 F Pulse Rate 112 H 94 89 Respiratory Rate 16 16 16 Blood Pressure 122/57 L 145/50 H 137/61 Pulse Oximetry 95 96 95 Oxygen Delivery Method Room Air Room Air Room Air 07/28/25 04:00 07/28/25 06:11 Temperature 98.6 F Pulse Rate 88 Respiratory Rate 16 16 Blood Pressure 130/61 Pulse Oximetry 96 Oxygen Delivery Method Room Air BMI result Body Mass Index 22.2 Medical Decision Making Medical Decision Making MDM Narrative: This patient presents today with a chief complaint of abdominal pain. Differential diagnosis for this patient is broad. It includes gastroenteritis, constipation, appendicitis, cholecystitis, bowel obstruction, peptic ulcer disease, pyelonephritis, vascular pathology, among many others. A broad-based workup based on history and physical examination was obtained. Patient abdominal exam is concerning. She is having some voluntary guarding. No palpable masses. Plan for CT of the abdomen and pelvis to rule out obstruction. Low suspicion for appendicitis though she does have a slightly elevated white blood cell count. Pain is periumbilical and associated with severe constipation. Improving after Valium, Tylenol and fluids. Prior to CT, patient developed another episode of emesis requiring Zofran. She had some kind of allergic reaction to Compazine in the past so we will watch her closely on the monitor especially given her slightly elongated QTC of 500. Patient feeling improved after Zofran. Reports improvement in abdominal discomfort as well. Her CT is showing a fluid-filled appendix, concern for potential appendicitis. We will contact general surgery to evaluate further. 7:07 AM 07/28/2025 (Dr. Myrtle Preston, D.O.) Dr. Hazel at bedside evaluating patient. Plan for admission to his service. He does not feel that this is of acute appendicitis. Holding off on antibiotics at this point. 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 07/27/25 21:29 07/27/25 21:29 Labs: Lab Results 07/27/25 07/28/25 Range/Units 21:29 02:02 WBC 11.3 H (4.8-10.8) X10*3/uL RBC 4.68 (4.20-5.50) X10*6/uL Hgb 14.5 (12.0-16.0) g/dl Hct 42.8 (37.0-47.0) % MCV 91.5 (80.0-98.0) fL MCH 31.0 (27.0-33.0) pg MCHC 33.9 (31.0-35.0) g/dl RDW 12.2 (11.0-16.0) % Plt Count 304 (160-400) X10*3/uL MPV 9.2 L (9.4-12.3) fL Immature Gran % (Auto) 0.2 (0.0-0.4) % Neut % (Auto) 92.7 H (45-73) % Lymph % (Auto) 2.3 L (20-40) % Turner % (Auto) 3.8 (2-11) % Eos % (Auto) 0.8 (0-4) % Baso % (Auto) 0.2 (0-2) % Lymph # (Auto) 0.3 L (1.2-4.9) X10*3/uL Turner # (Auto) 0.4 (0.1-1.2) X10*3/uL Eos # (Auto) 0.1 (0.0-0.4) X10*3/uL Baso # (Auto) 0.0 (0.0-0.2) X10*3/uL Abs Immat Gran (auto) 0.02 (0.00-0.03) X10*3/uL Absolute Neuts (auto) 10.5 H (2.0-8.3) x10*3/uL Absolute Nucleated RBC 0.000 (0.0-0.012) X10*3/uL Nucleated RBC % (auto) 0.0 (0.0-0.2) /100WBC Smear Tech's Comments VERIFIED Sodium 140 (135-145) mmol/L Potassium 3.7 (3.3-5.1) mmol/L Chloride 106 (96-108) mmol/L Carbon Dioxide 24 (22-29) mmol/L Anion Gap 14 (12-20) BUN 9 (9-16) mg/dL Creatinine 0.76 (0.5-1.4) mg/dL Estim Creat Clear Calc 63.8 Estimated GFR > 60 Random Glucose 122 H (60-115) mg/dL Calcium 9.7 (8.4-10.2) mg/dL Magnesium 1.9 (1.6-2.6) mg/dL Total Bilirubin 0.5 (0.0-1.0) mg/dL AST 21 (5-31) U/L ALT 16 (0-31) U/L Alkaline Phosphatase 64 (39-117) U/L Troponin I High Sens 3.1 (<3.5-17.0) ng/L Total Protein 7.2 (6.5-8.0) g/dL Albumin 4.5 (3.5-5.0) g/dL Lipase 13 (8-78) U/L Urine Color Yellow Urine Appearance Clear Urine pH 8.0 (5.0-9.0) Ur Specific [place] 1.025 (1.005-1.025) Urine Protein Negative (Neg-Trace) mg/dL Urine Glucose (UA) Negative (Negative) mg/dL Urine Ketones Negative (Negative) mg/dL Urine Blood Small (1+) H (Negative) Urine Nitrite Negative (Negative) Ur Leukocyte Esterase Negative (Negative) Urine RBC >20 H (0-2) /HPF Urine WBC 0-5 (0-5) /HPF Ur Squamous Epith Cells 0-2 (0-2) /HPF Urine Bacteria None Seen (None Seen) Hyaline Casts 0-2 (0-2) /LPF Independent Interpretation I performed an independent interpretation of an: EKG Interpretation: My independent interpretation of the ECG reveals normal sinus tachycardia with a rate of 101, trigeminy, rightward axis, RBBB QRS 134, long QTc 500, no ST elevations or depressions to suggest ischemic changes, no previous for comparison. Radiology Impression Discussion of test interpretation with radiology: I have reviewed the radiologist's reading. Radiologist Impression: CT abdomen and pelvis with contrast Comparison: CR - XR KUB - 07/27/25 21:55 EST Findings: The lung bases are clear. There are small cysts within the left kidney. Kidneys enhance symmetrically and there is no hydronephrosis. No bowel obstruction, pneumoperitoneum, or pneumatosis. Uterus and adnexa are unremarkable. The appendix is retrocecal, measures up to 8 mm and mildly hyperemic. Series 7, image 33. No significant periappendiceal stranding. No free fluid. No abscess. The bones are intact. IMPRESSION: Borderline enlarged and mildly hyperemic appendix. Findings are equivocal, but could represent early appendicitis. External Record Review External record reviewed: Inpatient record Medications Administered Discontinued Medications Generic Name Dose Route Start Last Admin Trade Name Freq PRN Reason Stop Dose Admin Diatrizoate Meglum/Diatrizoate Sod 30 ml 07/28/25 01:38 07/28/25 01:39 Diatrizoate Meglumine, Sodium 30 Ml Solution PO 07/28/25 01:39 30 ml ONCE ONE Administration Diazepam 5 mg 07/27/25 22:47 07/27/25 22:59 Diazepam 10 Mg/2 Ml Cartridge IVPUSH 07/27/25 22:48 5 mg STAT STA Administration Famotidine 20 mg 07/28/25 05:57 07/28/25 06:09 Famotidine/Pf 20 Mg/2 Ml Vial IVPUSH 07/28/25 05:58 20 mg ONCE ONE Administration Lactated Ringer's 1,000 mls @ 999 mls/hr 07/27/25 22:46 07/28/25 02:06 Lr IV 07/27/25 23:46 Infused .Q1H1M ONE Infusion Acetaminophen 1,000 mg in 100 mls @ 400 mls/hr 07/27/25 22:46 07/27/25 23:14 Ofirmev IV 07/27/25 23:00 Infused ONCE ONE Infusion Iohexol 85 ml 07/28/25 01:38 07/28/25 01:38 Iohexol 350 Mg/Ml 100 Ml Infus..Btl IV 07/28/25 01:39 85 ml ONCE ONE Administration Morphine Sulfate 4 mg 07/28/25 06:05 07/28/25 06:11 Morphine Sulfate 4 Mg/Ml Cartridge IVPUSH 07/28/25 06:06 4 mg ONCE ONE Administration Protocol Ondansetron HCl 4 mg 07/28/25 00:58 07/28/25 01:06 Ondansetron Hcl 4 Mg/2 Ml Vial IVPUSH 07/28/25 00:59 4 mg ONCE ONE Administration Discharge Plan Discharge Clinical Impression: Acute periumbilical pain, Acute appendicitis, Nausea and vomiting Patient Disposition: Admitted As Inpatient Print Language: Mongolian
[2025-07-28 04:00] VITALS: BP 130/61; PULSE 88; RESP 16; TEMP 37; O2SAT 96
[2025-07-28 06:11] VITALS: RESP 16
--- NOTE | 2025-07-28 07:21 | PM.HPGS ---
History of Present Illness History of Present Illness Date of Service: 07/30/25 Chief complaint: Abdominal pain and vomiting Narrative: Brenda Maciel is a 69 year old female here in the ER because of the abdominal pain and vomiting. She says that for about a week now, she has been having this diffuse abdominal pain, mostly in the periumbilical area. She describes this has [id number]. She does not feel that this is related to oral intake. She says she has IBS type symptoms mostly constipation for years. She describes being constipated and has been taking some laxatives last week. She says that she has had some vomiting since yesterday as well and this has was what had prompted her to go to the ER last night. She has not vomited since she was in the ER. He describes having watery stools since last night as well. She says that she has been leaking from her rectum when she had diarrhea last night. She says she does not have any significant medical problems except for allergies She has never had any abdominal surgeries in the past. Review of Systems Constitutional: Constitutional: Denies chills and Denies fever(s) Cardiovascular: Cardiovascular: Denies chest pain, Denies dyspnea and Denies dyspnea on exertion Respiratory: Respiratory: Denies cough, Denies dyspnea and Denies dyspnea on exertion Gastrointestinal: Gastrointestinal: Denies hematochezia, Denies change in bowel habits and Reports diarrhea Genitourinary: Genitourinary: Denies hematuria Musculoskeletal: Musculoskeletal: Denies back pain and Denies limited range of motion Neurologic: Denies focal weakness and Denies convulsions Psychiatric: Psychiatric: Denies depression and Denies mood swings [facility] Past Medical History Medical History No known health problems Social History Social History Household Members: Children Housing: House Do you presently have visiting nurse or other home services: No Alcohol intake: never Patient Tobacco Use Status: Never used Tobacco Substance Use Type: Marijuana service: No Meds Allergies Allergy/AdvReac Type Severity Reaction Status Date / Time prochlorperazine (From Allergy Unknown UNKNOWN Verified 07/27/25 21:08 COMPAZINE) Active Medications: Current Medications Acetaminophen (Acetaminophen 325 Mg Tablet) 650 mg PO Q6H PRN PRN Reason: Pain, Mild 1-3,fever,headache Heparin Sodium (Porcine) (Heparin Sodium,Porcine 5,000 Unit/Ml Vial) 5,000 unit SUBCUT Q8H [facility] Lactated Ringer's (Lr) 1,000 mls @ 100 mls/hr IVCONT .Q10H [facility] Melatonin (Melatonin 3 Mg Tablet) 6 mg PO BEDTIME PRN PRN Reason: Insomnia Morphine Sulfate (Morphine Sulfate 4 Mg/Ml Cartridge) 2 mg IVPUSH Q3H PRN; Protocol PRN Reason: Pain, Severe (Pain Scale 7-10) Ondansetron HCl (Ondansetron Hcl 4 Mg/2 Ml Vial) 4 mg IVPUSH Q6H PRN PRN Reason: Nausea and Vomiting Sodium Chloride (0.9 % Sodium Chloride Flush 3 Ml Syringe) 3 ml IVFLUSH QSHIFT [facility] Home Medications ?Medication ?Instructions ?Recorded ?Confirmed ?Last Taken ?Type bupropion HCl 300 mg 24 hr tablet, 300 mg PO DAILY 07/28/25 07/28/25 07/27/25 History extended release cetirizine 10 mg tablet (Zyrtec) 10 mg PO DAILY 07/28/25 07/28/25 07/27/25 History escitalopram oxalate 10 mg tablet 10 mg PO DAILY 07/28/25 07/28/25 07/27/25 History esomeprazole magnesium 20 mg 20 mg PO DAILY 07/28/25 07/28/25 07/27/25 History capsule,delayed release (Nexium) famotidine 20 mg tablet 20 mg PO BID 07/28/25 07/28/25 07/27/25 History Physical Exam Vital Signs: Vital Signs: Last Vital Signs Temp 98.6 F 07/28/25 04:00 Pulse 88 07/28/25 04:00 Resp 16 07/28/25 06:11 BP 130/61 07/28/25 04:00 Pulse Ox 96 07/28/25 04:00 O2 Del Method Room Air 07/28/25 04:00 BMI result Body Mass Index 22.2 Const: Other: Anxious looking General: comfortable and no acute distress Orientation/consciousness: patient oriented x3 Neck: Neck: Yes no lymphadenopathy Resp: Auscultation: clear to auscultation bilaterally Cardio: Rhythm: regular rhythm GI: Other: She has very mild pain diffusely with no guarding, no rebound, she does not seem to be tender on the right lower quadrant Palpation (GI): Soft to palpation, Tenderness to palpation present (GI) and no guarding Neuro: General: patient oriented x3 Results Results Labs: Short CBC 07/27/25 Range/Units 21:29 WBC 11.3 H (4.8-10.8) X10*3/uL Hgb 14.5 (12.0-16.0) g/dl Hct 42.8 (37.0-47.0) % Plt Count 304 (160-400) X10*3/uL BMP 07/27/25 21:29 Sodium 140 Potassium 3.7 Chloride 106 Carbon Dioxide 24 BUN 9 Creatinine 0.76 Calcium 9.7 Liver Function 07/27/25 Range/Units 21:29 Total Bilirubin 0.5 (0.0-1.0) mg/dL AST 21 (5-31) U/L ALT 16 (0-31) U/L Alkaline Phosphatase 64 (39-117) U/L Albumin 4.5 (3.5-5.0) g/dL Urine 07/28/25 Range/Units 02:02 Urine Color Yellow Urine Appearance Clear Urine pH 8.0 (5.0-9.0) Ur Specific [place] 1.025 (1.005-1.025) Urine Protein Negative (Neg-Trace) mg/dL Urine Glucose (UA) Negative (Negative) mg/dL Abdomen CT scan report/results: report reviewed and image reviewed CT scan - pelvis: report reviewed and image reviewed Additional studies: CLINICAL HISTORY: RLQ abd pain CT abdomen and pelvis with contrast Comparison: CR - XR KUB - 07/27/25 21:55 EST Findings: The lung bases are clear. There are small cysts within the left kidney. Kidneys enhance symmetrically and there is no hydronephrosis. No bowel obstruction, pneumoperitoneum, or pneumatosis. Uterus and adnexa are unremarkable. The appendix is retrocecal, measures up to 8 mm and mildly hyperemic. Series 7, image 33. No significant periappendiceal stranding. No free fluid. No abscess. The bones are intact. IMPRESSION: Borderline enlarged and mildly hyperemic appendix. Findings are equivocal, but could represent early appendicitis. Assessment and Plan (1) Acute periumbilical pain: Status: Acute Plan [age] year old female here in the ER because of the abdominal pain. She has had this for over a week and describes having significant nausea and vomiting overnight as well. She admits to having a long history of IBS type symptoms especially constipation I have reviewed her CAT scan. There is note of what appears to be mild edema of the appendix however, clinically, she does not have significant tenderness on right lower quadrant. Her abdominal exam is very benign. Furthermore, she has had these symptoms for over a week now so overall clinical picture does not seem to be highly suggestive of acute appendicitis She will be admitted for observation and serial abdominal exam. I will start her on IV Zosyn. She will be on bowel rest with IV fluids I explained to her the plan as above. She says that she does not want to proceed with surgical intervention unless this is absolutely necessary. She does understand the small likelihood of clinical worsening. It is also possible that she has some form of gastroenteritis causing her symptoms. Quality Stroke Does the patient have a stroke diagnosis?: No VTE Prior VTE?: No VTE Risk Level:: Medical - moderate - high VTE Device Contraindication: N/A - Device Ordered VTE Drug Contraindication: N/A - Med Ordered Procedures Date of Service Date of Service: 07/30/25
[2025-07-28] MEDS: 0.9 % Sodium Chloride Flush 3 ML SYRINGE IVFLUSH ×2 (08:07→19:47)
[2025-07-28 08:08] VITALS: BP 118/61; PULSE 90; RESP 18; O2SAT 96
[2025-07-28] MEDS: Lactated Ringers 1,000 ML 100 ML IVCONT ×2 (08:25→17:21)
--- NOTE | 2025-07-28 09:12 | PHA.MEDREC ---
Addendum entered by Poornima Townsend RPh 07/28/25 11:07: MED REC REVIEWED BY IRMA Original Note: Pharmacy Consult ? Medication Reconciliation Pharmacy has completed the medication reconciliation. patient was able to name all of her medications. Patient last had her medications yesterday morning.
[2025-07-28 11:47] VITALS: BMI 22.1
[2025-07-28 12:16] VITALS: BP 127/58; PULSE 90; RESP 18; TEMP 36.4; O2SAT 94
--- NOTE | 2025-07-28 14:33 | PM.EVENT ---
Event Note Date of Service: 07/28/25 Event Note: Seen on afternoon rounds Denies abdominal pain Denies vomiting Very anxious Abdomen is soft and benign, no significant tenderness No fever Clinical picture not consistent with the acute appendicitis currently Continue to observe closely Looks well overall Time Spent With Patient Time: Total time managing care of this patient today ____ minutes.
[2025-07-28 15:53] VITALS: BP 128/58; PULSE 91; RESP 12; TEMP 36.4; O2SAT 95
[2025-07-28 19:51] VITALS: BP 132/61; PULSE 87; RESP 18; TEMP 36.6; O2SAT 95
[2025-07-29] VITALS (7 sets, daily range): BP systolic 126–144; BP diastolic 58–67; PULSE 66–88; RESP 14–18; TEMP 36.1–37.2; O2SAT 92–98
[2025-07-29] MEDS: Lactated Ringers 1,000 ML 100 ML IVCONT ×3 (00:50→22:14)
[2025-07-29 06:12] LABS: Hematocrit 37.5 % (37.0-47.0); Hemoglobin 12.6 g/dl (12.0-16.0); Mean Corpuscular HGB Conc 33.6 g/dl (31.0-35.0); Mean Corpuscular Hemoglobin 31.3 pg (27.0-33.0); Mean Corpuscular Volume 93.3 fL (80.0-98.0); NRBC Abs Auto 0.000 X10*3/uL (0.0-0.012); NRBC Pct Auto 0.0 /100WBC (0.0-0.2); Platelet Count 203 X10*3/uL (160-400); Red Blood Count 4.02 X10*6/uL (4.20-5.50); White Blood Count 3.4 X10*3/uL (4.8-10.8)
[2025-07-29 06:26] LABS: Anion Gap 11 (12-20); Blood Urea Nitrogen 9 mg/dL (9-16); Calcium 8.6 mg/dL (8.4-10.2); Carbon Dioxide 26 mmol/L (22-29); Chloride 108 mmol/L (96-108); Creatinine Clr Calc Pharmacy 78.1; Estimated Glomerular Filt Rate > 60; Potassium 3.7 mmol/L (3.3-5.1); Sodium 141 mmol/L (135-145)
--- NOTE | 2025-07-29 08:09 | P.PNGS_ITS ---
Subjective Subjective Date of Service: 07/29/25 Interval history: Feels well Denies abdominal pain Denies nausea or vomiting Passing flatus No fever Physical Exam 2 Vital Signs: Vital Signs: Last Vital Signs Temp 98 F 07/29/25 06:59 Pulse 88 07/29/25 06:59 Resp 16 07/29/25 06:59 BP 144/65 H 07/29/25 06:59 Pulse Ox 94 07/29/25 06:59 O2 Del Method Room Air 07/29/25 06:59 BMI result Body Mass Index 22.1 Const: General: comfortable and no acute distress Resp: Effort & Inspection: normal respiratory effort Cardio: Rate: regular rate GI: Palpation (GI): Soft to palpation, not firm, nontender and no guarding Objective Data Active Medications Acetaminophen (Acetaminophen 325 Mg Tablet) 650 mg PO Q6H PRN PRN Reason: Pain, Mild 1-3,fever,headache Last Admin: 07/29/25 07:25 Dose: 650 mg Documented By: NITHYA Heparin Sodium (Porcine) (Heparin Sodium,Porcine 5,000 Unit/Ml Vial) 5,000 unit SUBCUT Q8H [facility] Lactated Ringer's (Lr) 1,000 mls @ 100 mls/hr IVCONT .Q10H [facility] Last Admin: 07/29/25 00:50 Dose: 100 mls/hr Documented By: JUDY Piperacillin Sod/Tazobactam (Sod 3.375 gm/ Sodium Chloride) 50 mls @ 100 mls/hr IV Q6H [facility] Last Infusion: 07/29/25 07:51 Dose: Infused Documented By: NITHYA Influenza Virus Vaccine (Flu Vacc [id number](6mo Up)/Pf 0.5 Ml Syringe) 0.5 ml IM .ONCE ONE Stop: 07/29/25 10:01 Melatonin (Melatonin 3 Mg Tablet) 6 mg PO BEDTIME PRN PRN Reason: Insomnia Morphine Sulfate (Morphine Sulfate 4 Mg/Ml Cartridge) 2 mg IVPUSH Q3H PRN; Protocol PRN Reason: Pain, Severe (Pain Scale 7-10) Ondansetron HCl (Ondansetron Hcl 4 Mg/2 Ml Vial) 4 mg IVPUSH Q6H PRN PRN Reason: Nausea and Vomiting Sodium Chloride (0.9 % Sodium Chloride Flush 3 Ml Syringe) 3 ml IVFLUSH [facility] Last Admin: 07/29/25 07:27 Dose: Not Given Documented By: NITHYA Non-Admin Reason: IV Running Labs 07/29/25 05:55 07/29/25 05:55 Labs: Laboratory Results - last 24 hr 07/29/25 05:55 MCV 93.3 MCH 31.3 MCHC 33.6 RDW 12.5 Plt Count 203 D MPV 9.3 L Absolute Nucleated RBC 0.000 Nucleated RBC % (auto) 0.0 Anion Gap 11 L Estim Creat Clear Calc 78.1 Estimated GFR > 60 Random Glucose 79 Calcium 8.6 D Procedures Date of Service Date of Service: 07/29/25 Progress Note: A&P Assessment and plan (1) Acute periumbilical pain: Status: Acute Assessment and Plan: Symptoms have resolved Clinically not consistent with the acute appendicitis WBC normal No fever Abdomen is soft, nontender We will start on clear liquids and slowly advance as tolerated May have had some enteritis We will continue serial abdominal exam Time Spent With Patient Time: Total time managing care of this patient today ____ minutes. Quality Stroke Does the patient have a stroke diagnosis?: No VTE Prior VTE?: No VTE Risk Level:: Medical - moderate - high VTE Device Contraindication: N/A - Device Ordered VTE Drug Contraindication: N/A - Med Ordered
[2025-07-29] MEDS: Flu Vacc TS2025-26(6mo up)/PF 0.5 ML SYRINGE IM (09:21)
--- NOTE | 2025-07-29 10:38 | MHC.CM.PN ---
pt lives with daughter is independent has own ride home her car is in the parking lot
--- NOTE | 2025-07-29 14:06 | PM.EVENT ---
Event Note Date of Service: 07/29/25 Event Note: Seen on early afternoon rounds Says she feels fine Denies abdominal pain Describes some watery stools No nausea or vomiting Tolerating clear liquids Abdomen is soft, benign and nontender No fever Looks well clinically Plan to advance diet tomorrow morning Doing well overall Time Spent With Patient Time: Total time managing care of this patient today ____ minutes.
[2025-07-30 03:21] LABS: CDiff Gene PCR NEGATIVE (Negative)
[2025-07-30 04:00] VITALS: BP 145/60; PULSE 64; RESP 18; TEMP 36.4; O2SAT 98
[2025-07-30 06:45] VITALS: BP 132/66; PULSE 72; RESP 16; TEMP 36.6; O2SAT 95
[2025-07-30] MEDS: 0.9 % Sodium Chloride Flush 3 ML SYRINGE IVFLUSH (07:36)
--- NOTE | 2025-07-30 07:45 | P.PNGS_ITS ---
Subjective Subjective Date of Service: 07/30/25 <Bren Anaya PA-C - Last Filed: 07/30/25 07:46> 07/30/25 <Trent Hazel MD - Last Filed: 07/30/25 08:27> Interval history: Had multiple loose stools last night. Minimal pain this morning. OOB and ambulating. Feels better overall but tired. <Bren Anaya PA-C - Last Filed: 07/30/25 07:46> Physical Exam 2 Vital Signs: Vital Signs: Last Vital Signs Temp 97.9 F 07/30/25 06:45 Pulse 72 07/30/25 06:45 Resp 16 07/30/25 06:45 BP 132/66 07/30/25 06:45 Pulse Ox 95 07/30/25 06:45 O2 Del Method Room Air 07/30/25 06:45 BMI result Body Mass Index 22.1 <Bren Anaya PA-C - Last Filed: 07/30/25 07:46> Const: General: comfortable, no acute distress and alert <Bren Anaya PA-C - Last Filed: 07/30/25 07:46> Orientation/consciousness: patient oriented x3 <Bren Anaya PA-C - Last Filed: 07/30/25 07:46> GI: Inspection: No distended <Bren Anaya PA-C - Last Filed: 07/30/25 07:46> Palpation (GI): Soft to palpation, nontender and no guarding <Bren Anaya PA-C - Last Filed: 07/30/25 07:46> Skin: General skin exam: no rashes or lesions noted <Bren Anaya PA-C - Last Filed: 07/30/25 07:46> Neuro: General: patient oriented x3 and moves all extremities <Bren Anaya PA-C - Last Filed: 07/30/25 07:46> Objective Data Active Medications Acetaminophen (Acetaminophen 325 Mg Tablet) 650 mg PO Q6H PRN PRN Reason: Pain, Mild 1-3,fever,headache Last Admin: 07/29/25 07:25 Dose: 650 mg Documented By: HO.LAPOINM Heparin Sodium (Porcine) (Heparin Sodium,Porcine 5,000 Unit/Ml Vial) 5,000 unit SUBCUT Q8H [facility] Last Admin: 07/30/25 01:47 Dose: 5,000 unit Documented By: DWIGHT Piperacillin Sod/Tazobactam (Sod 3.375 gm/ Sodium Chloride) 50 mls @ 100 mls/hr IV Q6H [facility] Last Admin: 07/30/25 07:36 Dose: 100 mls/hr Documented By: FADIA Melatonin (Melatonin 3 Mg Tablet) 6 mg PO BEDTIME PRN PRN Reason: Insomnia Last Admin: 07/30/25 01:47 Dose: 6 mg Documented By: DWIGHT Morphine Sulfate (Morphine Sulfate 4 Mg/Ml Cartridge) 2 mg IVPUSH Q3H PRN; Protocol PRN Reason: Pain, Severe (Pain Scale 7-10) Ondansetron HCl (Ondansetron Hcl 4 Mg/2 Ml Vial) 4 mg IVPUSH Q6H PRN PRN Reason: Nausea and Vomiting Sodium Chloride (0.9 % Sodium Chloride Flush 3 Ml Syringe) 3 ml IVFLUSH QSHIFT [facility] Last Admin: 07/30/25 07:36 Dose: 3 ml Documented By: FADIA <Bren Anaya PA-C - Last Filed: 07/30/25 07:46> Labs CBC & Chem 7: 07/29/25 05:55 07/29/25 05:55 <Bren Anaya PA-C - Last Filed: 07/30/25 07:46> Labs: Laboratory Results - last 24 hr 07/30/25 01:35 C. difficile Tox B Gene NEGATIVE <Bren Anaya PA-C - Last Filed: 07/30/25 07:46> Procedures Date of Service Date of Service: 07/30/25 <Bren Anaya PA-C - Last Filed: 07/30/25 07:46> 07/30/25 <Trent Hazel MD - Last Filed: 07/30/25 08:27> Progress Note: A&P Assessment and plan (1) Nausea and vomiting: Status: Acute <Bren Anaya PA-C - Last Filed: 07/30/25 07:46> Assessment and Plan: Continues to feel better Denies abdominal pain Had some diarrhea up until last night Abdomen is soft, benign and nontender No fever Looks well overall Diet as tolerated Possible DC home later She feels that she is ready to be discharged Seen and examined independently <Trent Hazel MD - Last Filed: 07/30/25 08:27> (2) Acute periumbilical pain: Status: Acute <Bren Anaya PA-C - Last Filed: 07/30/25 07:46> Assessment and Plan: Clinically appearing well, abd pain resolved. Now with loose stools, c diff negative. Will advance to solid diet this morning. Home later today if tolerating. patient comfortable with plan. <Bren Anaya PA-C - Last Filed: 07/30/25 07:46> Time Spent With Patient Time: Total time managing care of this patient today ____ minutes. <Bren Anaya PA-C - Last Filed: 07/30/25 07:46> Quality Stroke Does the patient have a stroke diagnosis?: No <Bren Anaya PA-C - Last Filed: 07/30/25 07:46> VTE Prior VTE?: No <Bren Anaya PA-C - Last Filed: 07/30/25 07:46> VTE Risk Level:: Medical - moderate - high <Bren Anaya PA-C - Last Filed: 07/30/25 07:46> VTE Device Contraindication: N/A - Device Ordered <Bren Anaya PA-C - Last Filed: 07/30/25 07:46> VTE Drug Contraindication: N/A - Med Ordered <Bren Anaya PA-C - Last Filed: 07/30/25 07:46>
[2025-07-30 13:27] VITALS: BP 145/66; PULSE 83; RESP 18; TEMP 36.8; O2SAT 95
--- NOTE | 2025-07-30 13:36 | MHC.CM.PN ---
PT WILL DC HOME TODAY WITH NO SERVICES VIA SELF TRANSPORT
--- NOTE | 2025-07-30 16:21 | PM.DS ---
DS: Providers Provider Date of Service: 07/30/25 Date of admission: 07/28/25 07:17 Date of discharge: 07/30/25 Primary care physician: Aliyah Broderick MD Attending physician on admission: Trent Hazel Attending physician on discharge: Trent Hazel DS: Diagnosis Discharge Diagnosis (1) Acute periumbilical pain: Status: Acute DS: Summary Hospital Course Hospital Course: HPI AT ADMISSION: Brenda Maciel is a 69 year old female here in the ER because of the abdominal pain and vomiting. She says that for about a week now, she has been having this diffuse abdominal pain, mostly in the periumbilical area. She describes this has [id number]. She does not feel that this is related to oral intake. She says she has IBS type symptoms mostly constipation for years. She describes being constipated and has been taking some laxatives last week. She says that she has had some vomiting since yesterday as well and this has was what had prompted her to go to the ER last night. She has not vomited since she was in the ER. He describes having watery stools since last night as well. She says that she has been leaking from her rectum when she had diarrhea last night. She says she does not have any significant medical problems except for allergies. She has never had any abdominal surgeries in the past. CAT scan shows what appears to be mild edema of the appendix. HOSPITAL COURSE: Clinically, she did not have significant tenderness on right lower quadrant and her abdominal exam is very benign. Furthermore, she has had these symptoms for over a week now so overall clinical picture did not seem to be highly suggestive of acute appendicitis. It was possible that she has some form of gastroenteritis causing her symptoms. She was admitted for observation and serial abdominal exam. She was started on IV Zosyn empirically with bowel rest with IV fluids. She understood and agreed with the plan. She improved symptomatically. HER wbc count normalized. Her nausea/vomiting resolved and abd pain resolved. She began to have loose stools. Cdiff was negative. Her diet was slowly advanced. On the day of discharge, she was tolerating a solid diet with good GI function. She had no abdominal pain. Her abdomen was benign and soft, nontender. She felt ready for discharge. She was discharged to home on 07/30/25 in stable condition on a short course of augmentin. She is to follow up in the office in 2 weeks. Status at Discharge Functional status at discharge: independent ambulation Time Attestation Discharge Coordination Time (in mins): 30 Quality: Safe Use of Opioids Does Pt have an Active Cancer Diagnosis on the Problem List?: No Quality: Stroke Does the patient have a stroke diagnosis?: No Physical Exam Vital Signs: Vital Signs: Last Vital Signs Temp 98.3 F 07/30/25 13:27 Pulse 83 07/30/25 13:27 Resp 18 07/30/25 13:27 BP 145/66 H 07/30/25 13:27 Pulse Ox 95 07/30/25 13:27 O2 Del Method Room Air 07/30/25 13:27 BMI result Body Mass Index 22.1 Const: General: comfortable, no acute distress and alert Resp: Effort & Inspection: normal respiratory effort GI: Inspection: No distended Palpation (GI): Soft to palpation, nontender and no guarding Skin: General skin exam: no rashes or lesions noted Neuro: General: moves all extremities Discharge Plan Discharge Anticipated Discharge Date/Time: 07/30/25 12:57 Patient Disposition: Home, Self-Care Discharge Diagnosis: umbilical pain, nausea/vomiting, diarrhea Referrals: Aliyah Broderick MD [Primary Care Provider, Internal Medicine] - 1 Week Trent Hazel MD [Physician, General Surgery] - 2 Weeks Discharge Medications: New amoxicillin-pot clavulanate 875-125 mg tablet 1 tab PO BID Qty: 6 0RF Continued fluticasone propionate [Flonase Allergy Relief] 50 mcg/actuation spray,suspension 1 spray intranasal DAILY Qty: 16 0RF Rx Instructions: administer into each nostril cetirizine [Zyrtec] 10 mg Tablet 10 mg PO DAILY esomeprazole magnesium [Nexium] 20 mg Capsule,Delayed Release(Dr/Ec) 20 mg PO DAILY escitalopram oxalate 10 mg tablet 10 mg PO DAILY bupropion HCl 300 mg tablet extended release 24 hr 300 mg PO DAILY famotidine 20 mg tablet 20 mg PO BID Discharge Orders: Discharge Order (Routine); Ordered 07/30/25 Ordered By: Bren Anaya Diet: Advance to usual diet Activity on Discharge: As tolerated Stand Alone Forms: Patient Portal Discharge page Print Language: Kazakh Activity Restrictions/Additional Instructions: Follow up in office in 1-2 weeks. ([phone]) Take your antibiotics as prescribed. You can take tylenol or motrin if you are having any pain. Call the office or return to the ED if : ? ? -Your temperature exceeds 101.5? F? ? ? -You experience excessive abdominal pain ? ? -You have an unexpected reaction to medication ? ? -You experience continued vomiting/nausea and are unable to tolerate any oral intake Care Plan Goals: Return to baseline health and resume normal activities. Health Concerns: acute appendicitis Plan of Treatment: Observation, antibiotics Diet as tolerated Follow up in the office Assessment: Improved Discharge Date/Time: 07/30/25 13:32
== END 2025-07-30 13:32 | disposition home or self-care (01) | DRG 392 ==
LOC: HO.ED 07-28 07:08 → HO.EDOVER 07-28 07:33 → HO.S3 07-28 10:44
PROVIDERS: Admitting Provider Surgery; Emergency Provider Emergency Medicine; PCP Family Medicine; Visit Provider Surgery
DX: R10.33 Periumbilical pain (principal); Z23 Encounter for immunization; Z79.899 Other long term (current) drug therapy
CPT/HCPCS: 36415; 74018; 74177; 80048; 80053; 81001; 83690; 83735; 84484; 85025; 85027; 87493; 90656; 93005; 99221; 99285; J0131; J1308; J1644; J2270; J2405; J2543; J3360; J7120; Q9967

== ENCOUNTER → 2025-07-27 21:11 | Outpatient (BNV) | payer MEDICARE, SELFPAY | PROVIDERS: Admitting Provider Surgery; Emergency Provider Emergency Medicine; PCP Family Medicine; Visit Provider Internal Medicine Cardiovascular Disease | DX: R00.0 Tachycardia, unspecified (principal); I49.3 Ventricular premature depolarization; I45.10 Unspecified right bundle-branch block | CPT/HCPCS: 93010 ==

== ENCOUNTER → 2025-07-27 21:45 | Outpatient (BNV) | payer MEDICARE, SELFPAY | PROVIDERS: Emergency Provider Emergency Medicine; PCP Family Medicine; Visit Provider Radiology Diagnostic Radiology | DX: K59.00 Constipation, unspecified (principal) | CPT/HCPCS: 74018 ==

== ENCOUNTER → 2025-07-28 01:05 | Outpatient (BNV) | payer MEDICARE, SELFPAY | PROVIDERS: Emergency Provider Emergency Medicine; PCP Family Medicine; Visit Provider Radiology Diagnostic Radiology | DX: R10.31 Right lower quadrant pain (principal) | CPT/HCPCS: 74177 ==

== ENCOUNTER → 2025-07-28 07:17 | Outpatient (BNV) | payer MEDICARE, SELFPAY | PROVIDERS: Admitting Provider Surgery; Emergency Provider Emergency Medicine; PCP Family Medicine; Visit Provider Surgery | DX: R10.33 Periumbilical pain (principal) | CPT/HCPCS: 99222; 99232; 99238; 99499 ==

== ENCOUNTER 2025-08-04 15:00 | Inpatient (IN) | payer MEDICARE, SELFPAY ==
--- NOTE | ~2025-08-04 | CT_ITS ---
CLINICAL HISTORY: CONFUSED, INTERMITTENT APHASIA CT angiography head and neck with contrast. 3D Postprocessing. Comparison: None provided Findings: The arch vessels are patent. Right common carotid artery is unremarkable. There is soft plaque in mid to distal left common carotid artery with no hemodynamically significant stenosis. Right carotid bifurcation is lower than the left. There is only minimal calcified plaque with no evidence of hemodynamically significant stenosis in the bifurcation. Calcified plaque at left carotid bifurcation with no hemodynamically significant stenosis. More distally in the neck bilateral internal carotid arteries are patent. Bilateral external carotid arteries and bilateral vertebral arteries are patent. Vertebral arteries are codominant. Bilateral intracranial internal carotid arteries are patent. Mild plaque in cavernous segments with no hemodynamically significant stenosis. Vertebral basilar junction is unremarkable and basilar artery enhances normally. Bilateral anterior, middle and posterior cerebral arteries are patent. No intracranial large vessel occlusion. No aneurysm. The visualized thyroid gland is unremarkable. No cervical mass or fluid collection. Lung apices clear. No acute fracture. Degenerative changes cervical spine. IMPRESSION: 1. CTA neck demonstrates atherosclerotic vascular disease as described with no hemodynamically significant stenosis. 2. CTA head demonstrates no intracranial large vessel occlusion. This document has been electronically signed by: Beverly Grigsby MD on 08/04/2025 18:21:03
--- NOTE | ~2025-08-04 | MR_ITS ---
EXAMINATION: MR BRAIN WITHOUT CONTRAST CLINICAL INFORMATION: Intermittent aphasia, confusion, rule out CVA. 70-year-old female. COMPARISON: No prior MRI. Correlation made with CT head and CTA head and neck 08/04/2025. TECHNIQUE: MRI of the brain was obtained using routine sequences without contrast. Examination performed on a Siemens 1.5 Isela high-field unit. FINDINGS: There is no diffusion restriction. There is no intracranial hemorrhage, acute infarction, mass effect, or edema. Ventricles, sulci, and cisterns are normal in size and configuration for patient age. No shift of midline. No abnormal hemosiderin deposition is identified. There are a few scattered punctate and minimally confluent foci of white matter T2 hyperintensity in the periventricular, subcortical, and hemispheric deep white matter. These foci are nonspecific but statistically relate to mild small vessel ischemic changes. There is a tiny old lacunar type infarct in the left caudate head. Midline structures appear normally formed. The pituitary gland appears normal. Posterior fossa structures appear normal. Cerebellar tonsils are appropriately located. Major flow voids are preserved within the skull base. The globes and orbital contents demonstrate no abnormalities. Paranasal sinuses are clear bilaterally. The mastoids and tympanic cavities are normally aerated. Extracranial soft tissues demonstrate no abnormalities. No suspicious bone marrow changes are evident. Moderate degenerative changes in the left greater than right TM joints. Atlantoaxial joint demonstrates mild to moderate degenerative arthritis. MR/MR head/brain wo con IMPRESSION: 1. No evidence of intracranial hemorrhage, acute infarction, mass effect, or edema. 2. There are mild white matter changes of small vessel ischemia. Electronically signed by: Jose Solis MD 08/05/2025 12:58 PM EST
--- NOTE | ~2025-08-04 | CT_ITS ---
CLINICAL HISTORY: CONFUSED, INTERMITTENT APHASIA CT head without contrast Comparison: None provided Findings: No intra-axial mass, midline shift, hydrocephalus, or acute hemorrhage. No significant atrophy-like change or white matter disease. Atherosclerotic vascular disease. Minimal basal ganglia calcifications. There is no sinus or mastoid fluid. The orbits are unremarkable. No acute skull fracture. IMPRESSION: 1. No acute intracranial findings. This document has been electronically signed by: Beverly Grigsby MD on 08/04/2025 17:50:40
--- NOTE | ~2025-08-04 | CT_ITS ---
CLINICAL HISTORY: RLQ pain, hx appendicitis CT abdomen and pelvis without contrast Comparison: CT/SR - CT ABDOMEN PELVIS W IV CON - 07/28/25 01:36 EST Findings: Limited evaluation without intravenous contrast. The lung bases are clear. Gallbladder is unremarkable. No significant biliary ductal dilatation. Unenhanced liver, spleen, pancreas and adrenal glands appear within normal limits. Residual excreted contrast in bilateral renal collecting systems and in the urinary bladder. No hydronephrosis or hydroureter and no perinephric stranding or perinephric fluid. There are 2 approximately 1 cm cortical hypodense lesions in left renal cortex anteriorly likely small cysts. No bowel obstruction, pneumoperitoneum, or pneumatosis. The appendix is borderline prominent measuring up to 7-8 mm in caliber similar to previous examination. No periappendiceal inflammatory changes. No evidence of loculated fluid collection or adenopathy. Uterus is present. Contrast in urinary bladder. Atherosclerotic vascular disease with no aneurysm of the abdominal aorta. No acute fracture. IMPRESSION: 1. Appendix is borderline thickened measuring 7-8 mm in caliber similar to previous examination. No periappendiceal inflammation. This document has been electronically signed by: Beverly Grigsby MD on 08/04/2025 21:09:21
[2025-08-04 15:09] VITALS: BP 144/80; PULSE 87; RESP 18; TEMP 36.6; O2SAT 98; BMI 22.7
--- NOTE | 2025-08-04 15:10 | ED.ABDPAIN ---
HPI - Abdominal Pain General Chief Complaint: Nausea/Vomiting/Diarrhea Stated Complaint: Nausea Vomiting Diarrhea Time Seen by Provider: 08/04/25 16:20 Source: patient and family Mode of arrival: ambulatory Limitations: no limitations History of Present Illness ED Provider: Dr. Chaparrita Sherwood HPI narrative: Patient comes to the emergency room accompanied by her son. Initially, patient reported having nausea vomiting. States that about a week ago she was diagnosed with possible appendicitis what was treated only with antibiotics, then appendicitis was ruled out. Patient states that this time she does not have much abdominal pain. However, the patient's son is at bedside, states that the main reason that they brought her in to the emergency room is because patient's seems to have acute onset of difficulty finding words and confusion. Patient is awake and alert, states that she remembers her morning. However, patient does not remember having a conversation with her daughter an hour ago, does not remember how she got here. According to the patient's son this is not usual for the patient. According to the son, before they decided to bring her to the emergency room, patient was having a conversation and it was very obvious that she was confused and having difficulty finding words but her speech sounded normal but confused. Patient states that she is aware that she is confused, states that she has a normal morning. According to the patient's son, the confusion symptoms and difficulty finding words started a proximally 1 hour prior to arrival. Patient denies any motor dysfunction Related Data Home Medications ?Medication ?Instructions ?Recorded ?Confirmed bupropion HCl 300 mg 24 hr tablet, 300 mg PO DAILY 07/28/25 07/28/25 extended release cetirizine 10 mg tablet (Zyrtec) 10 mg PO DAILY 07/28/25 07/28/25 escitalopram oxalate 10 mg tablet 10 mg PO DAILY 07/28/25 07/28/25 esomeprazole magnesium 20 mg 20 mg PO DAILY 07/28/25 07/28/25 capsule,delayed release (Nexium) famotidine 20 mg tablet 20 mg PO BID 07/28/25 07/28/25 Previous Rx's ?Medication ?Instructions ?Recorded fluticasone propionate 50 1 spray intranasal DAILY #16 grams 12/25/22 mcg/actuation nasal spray,suspension (Flonase Allergy Relief) amoxicillin 875 mg-potassium 1 tab PO BID #6 tabs 07/29/25 clavulanate 125 mg tablet Allergies Allergy/AdvReac Type Severity Reaction Status Date / Time prochlorperazine (From Allergy Unknown UNKNOWN Verified 08/04/25 15:12 COMPAZINE) Review of Systems Review of Systems Constitutional : No Weight loss, No Fever, No Chills, No Night Sweats, No Fatigue, No Malaise, complaining of confusion ENT/Mouth : No Hearing loss, No Ear Pain, No Nasal Congestion, No Sinus Pain, No Hoarseness, No sore throat, No Rhinorrhea, No Swallowing Difficulty Eyes: No Eye Pain, No Swelling, No Redness, No Foreign Body, No Discharge, No Vision Changes Cardiovascular : No Chest Pain, No SOB, No Dyspnea on Exertion, No Orthopnea, No Edema, No Palpitations Respiratory : No Cough, No Sputum, No Wheezing, No Smoke Exposure, No Dyspnea Gastrointestinal : No Nausea, No Vomiting, No Diarrhea, No Constipation, No abdominal Pain, No Hematochezia, No Melena Genitourinary : no irregular bleeding, No Dysuria, No Urinary Frequency, No Hematuria, No Urinary Incontinence, No Urgency, No Flank Pain, No Urinary Flow Changes, No Hesitancy Musculoskeletal : No joint pain, No Myalgias, No Joint Swelling Skin : No Skin Lesions, No rash Neuro : No Weakness, No Numbness, No Paresthesias, No Loss of Consciousness, No Dizziness, No Headache, patient reports multiple episodes within the last hour of finding words and confusion Psych : No Anxiety/Panic, No Depression, No SI/HI/AH/VH, No Social Issues, Heme/Lymph: No Bruising, No Bleeding,No Lymphadenopathy Endocrine : No Polyuria, No Polydipsia, No Temperature Intolerance [facility] Past Medical History Medical History No known health problems Social History Social History Household Members: Children Housing: House Do you presently have visiting nurse or other home services: No Alcohol intake: current Alcohol intake frequency: holidays/special occasions only Patient Tobacco Use Status: Never used Tobacco Smoked in Last 30 Days: No Use of substances other than those prescribed or required for medical reasons: Yes Substance Use Type: Marijuana Advance Directives: No Advance Directives Information Provided: No Do you have a plan to hurt others: No Plan service: No Physical Exam ED Exam Exam: Appearance: Alert. Oriented X3. No acute distress. Eyes: Pupils equal, round and reactive to light. ENT: Pharynx normal. Neck: Normal inspection. Neck supple. No lymph nodes noted. No crepitus CVS: Normal heart rate and rhythm. Pulses normal. Normal S1 and S2 Respiratory: No respiratory distress. Breath sounds normal. No Wheezing. No rales Abdomen: Soft and nontender. No rigidity. No distention. Skin: Skin warm and dry. Normal skin color. Normal skin turgor. Extremities: No lower extremity edema. No Lacerations. No Rash Neuro: Oriented X 3. No motor deficit. No sensory deficit. Moving all extremities. No slurred speech. CN 2 through 12 grossly intact, patient's speech is intact, seems to have trouble with memory but not with difficulties finding words or speech Psych: calm, cooperative, normal affect Vital Signs: Vital Signs - 24 hr 08/04/25 15:09 08/04/25 17:01 Temperature 98 F 98.2 F Pulse Rate 87 83 Respiratory Rate 18 16 Blood Pressure 144/80 H 178/77 H Pulse Oximetry 98 96 Oxygen Delivery Method Room Air Room Air BMI result Body Mass Index 22.7 NIH Stroke Scale Internal: Initial- Upon Arrival Level of Consciousness: Alert Level of Consciousness Questions: Answers both questions correctly Level of Consciousness Commands: Performs both tasks correctly Best Gaze: Normal Visual: No visual loss Facial Palsy: Normal Motor Arm (Right): No drift Motor Arm (Left): No drift Motor Leg (Right): No drift Motor Leg (Left): No drift Limb Ataxia: Absent Sensory: Normal Best Language: No aphasia Dysarthia: Normal Extinction and Inattention: No abnormality Score: 0 Course Course Course Narrative: This is an RME: Additional HPI, ROS, PE not included below will be deferred to primary provider. RME assessment and note performed by: Fatmata Domingo PA-C This is a [id number]-female, with no known medical problems, who presents to the ER with intermittent abdominal pain, nausea, vomiting, and diarrhea x 2 weeks. Recent admission from 07/28-07/30 for acute appendicitis - however clinical picture per gen surg was not consistent with acute appy, d/c on Augmentin. Abd pain is diffuse. Plan: Labs, UA Medical Decision Making Medical Decision Making [facility] Narrative: My interpretation of labs: Patient's white blood cell count within normal limits, no abnormality in patient's hemoglobin and hematocrit, normal platelets. INR 1.0.. No abnormality in patient's chemistry, no significant abnormality in patient's LFTs, lipase normal, urinalysis negative for UTI. ETOH negative, drugs for abuse negative NIH score remains at 0, not a candidate for tPA CT scan and CTA for head and neck do not show any acute abnormality. I discussed the above-mentioned with the patient and her son, both agreeable I discussed the patient with Dr. Salgado Differential Diagnosis Differential Diagnoses: The differential diagnosis associated with the presentation includes (TIA, CVA, hemorrhagic stroke, UTI) Admission/Observation Consideration of admission/observation: Escalation of care including admission/observation considered (Given patient's history and symptoms, admission has been considered.) Lab Data [facility] Lab Attestation statement: I reviewed the patient's lab results. 08/04/25 16:52 08/04/25 16:52 Labs: Lab Results 08/04/25 08/04/25 08/04/25 Range/Units 16:51 16:52 17:25 WBC 9.6 (4.8-10.8) X10*3/uL RBC 4.19 L (4.20-5.50) X10*6/uL Hgb 13.1 (12.0-16.0) g/dl Hct 39.1 (37.0-47.0) % MCV 93.3 (80.0-98.0) fL MCH 31.3 (27.0-33.0) pg MCHC 33.5 (31.0-35.0) g/dl RDW 12.5 (11.0-16.0) % Plt Count 342 D (160-400) X10*3/uL MPV 8.9 L (9.4-12.3) fL Immature Gran % (Auto) 0.5 H (0.0-0.4) % Neut % (Auto) 79.6 H (45-73) % Lymph % (Auto) 12.9 L (20-40) % [place] % (Auto) 5.7 (2-11) % Eos % (Auto) 1.1 (0-4) % Baso % (Auto) 0.2 (0-2) % Lymph # (Auto) 1.2 (1.2-4.9) X10*3/uL [place] # (Auto) 0.6 (0.1-1.2) X10*3/uL Eos # (Auto) 0.1 (0.0-0.4) X10*3/uL Baso # (Auto) 0.0 (0.0-0.2) X10*3/uL Abs Immat Gran (auto) 0.05 H (0.00-0.03) X10*3/uL Absolute Neuts (auto) 7.6 (2.0-8.3) x10*3/uL Absolute Nucleated RBC 0.000 (0.0-0.012) X10*3/uL Nucleated RBC % (auto) 0.0 (0.0-0.2) /100WBC ESR 12 (0-20) MM/HR Whole Blood PT (11.1-13.5) sec Whole Blood INR (0.9-1.1) Hold Blue Top SEE NOTE Sodium 144 (135-145) mmol/L Potassium 3.6 (3.3-5.1) mmol/L Chloride 107 (96-108) mmol/L Carbon Dioxide 27 (22-29) mmol/L Anion Gap 14 (12-20) BUN 7 L (9-16) mg/dL Creatinine 0.60 (0.5-1.4) mg/dL Estim Creat Clear Calc 79.6 Estimated GFR > 60 POC Glucose 90 (60-115) mg/dL Random Glucose 86 (60-115) mg/dL Calcium 9.4 D (8.4-10.2) mg/dL Magnesium 2.3 (1.6-2.6) mg/dL Total Bilirubin 0.3 (0.0-1.0) mg/dL Direct Bilirubin 0.1 (0.0-0.5) mg/dL AST 36 H (5-31) U/L ALT 59 H (0-31) U/L Alkaline Phosphatase 58 (39-117) U/L C-Reactive Protein 0.15 (< or = 0.50) mg/dL Total Protein 7.2 (6.5-8.0) g/dL Albumin 4.6 (3.5-5.0) g/dL Lipase 16 (8-78) U/L Urine Color Urine Appearance Urine pH (5.0-9.0) Ur Specific [place] (1.005-1.025) Urine Protein (Neg-Trace) mg/dL Urine Glucose (UA) (Negative) mg/dL Urine Ketones (Negative) mg/dL Urine Blood (Negative) Urine Nitrite (Negative) Ur Leukocyte Esterase (Negative) Urine RBC (0-2) /HPF Urine WBC (0-5) /HPF Ur Squamous Epith Cells (0-2) /HPF Urine Bacteria (None Seen) Hyaline Casts (0-2) /LPF Urine Opiates Screen (Not Detect) Ur Buprenorphine Scrn (Not Detect) ng/mL Ur Oxycodone Screen (Not Detect) ng/mL Urine Methadone Screen (Not Detect) ng/mL Urine Fentanyl Screen (Not Detect) Ur Barbiturates Screen (Not Detect) Ur Phencyclidine Scrn (Not Detect) Ur Amphetamines Screen (Not Detect) U Benzodiazepines Scrn (Not Detect) Urine Cocaine Screen (Not Detect) U Marijuana (THC) Screen (Not Detect) Ethyl Alcohol < 10 mg/dL 08/04/25 08/04/25 Range/Units 17:26 17:50 WBC (4.8-10.8) X10*3/uL RBC (4.20-5.50) X10*6/uL Hgb (12.0-16.0) g/dl Hct (37.0-47.0) % MCV (80.0-98.0) fL MCH (27.0-33.0) pg MCHC (31.0-35.0) g/dl RDW (11.0-16.0) % Plt Count (160-400) X10*3/uL MPV (9.4-12.3) fL Immature Gran % (Auto) (0.0-0.4) % Neut % (Auto) (45-73) % Lymph % (Auto) (20-40) % [place] % (Auto) (2-11) % Eos % (Auto) (0-4) % Baso % (Auto) (0-2) % Lymph # (Auto) (1.2-4.9) X10*3/uL [place] # (Auto) (0.1-1.2) X10*3/uL Eos # (Auto) (0.0-0.4) X10*3/uL Baso # (Auto) (0.0-0.2) X10*3/uL Abs Immat Gran (auto) (0.00-0.03) X10*3/uL Absolute Neuts (auto) (2.0-8.3) x10*3/uL Absolute Nucleated RBC (0.0-0.012) X10*3/uL Nucleated RBC % (auto) (0.0-0.2) /100WBC ESR (0-20) MM/HR Whole Blood PT 12.5 (11.1-13.5) sec Whole Blood INR 1.0 (0.9-1.1) Hold Blue Top Sodium (135-145) mmol/L Potassium (3.3-5.1) mmol/L Chloride (96-108) mmol/L Carbon Dioxide (22-29) mmol/L Anion Gap (12-20) BUN (9-16) mg/dL Creatinine (0.5-1.4) mg/dL Estim Creat Clear Calc Estimated GFR POC Glucose (60-115) mg/dL Random Glucose (60-115) mg/dL Calcium (8.4-10.2) mg/dL Magnesium (1.6-2.6) mg/dL Total Bilirubin (0.0-1.0) mg/dL Direct Bilirubin (0.0-0.5) mg/dL AST (5-31) U/L ALT (0-31) U/L Alkaline Phosphatase (39-117) U/L C-Reactive Protein (< or = 0.50) mg/dL Total Protein (6.5-8.0) g/dL Albumin (3.5-5.0) g/dL Lipase (8-78) U/L Urine Color Yellow Urine Appearance Clear Urine pH 8.5 (5.0-9.0) Ur Specific [place] 1.010 (1.005-1.025) Urine Protein Negative (Neg-Trace) mg/dL Urine Glucose (UA) Negative (Negative) mg/dL Urine Ketones Negative (Negative) mg/dL Urine Blood Small (1+) H (Negative) Urine Nitrite Negative (Negative) Ur Leukocyte Esterase Negative (Negative) Urine RBC 0-2 (0-2) /HPF Urine WBC 0-5 (0-5) /HPF Ur Squamous Epith Cells 0-2 (0-2) /HPF Urine Bacteria None Seen (None Seen) Hyaline Casts 0-2 (0-2) /LPF Urine Opiates Screen Not Detected (Not Detect) Ur Buprenorphine Scrn Not Detected (Not Detect) ng/mL Ur Oxycodone Screen Not Detected (Not Detect) ng/mL Urine Methadone Screen Not Detected (Not Detect) ng/mL Urine Fentanyl Screen Not Detected (Not Detect) Ur Barbiturates Screen Not Detected (Not Detect) Ur Phencyclidine Scrn Not Detected (Not Detect) Ur Amphetamines Screen Not Detected (Not Detect) U Benzodiazepines Scrn Not Detected (Not Detect) Urine Cocaine Screen Not Detected (Not Detect) U Marijuana (THC) Screen Not Detected (Not Detect) Ethyl Alcohol mg/dL Independent Interpretation I performed an independent interpretation of an: EKG and CT Scan Radiology Impression Discussion of test interpretation with radiology: I have reviewed the radiologist's reading. Independent Historian Clinical information obtained from an independent historian. History obtained from or confirmed by: Other (Patient's son) Medications Administered Discontinued Medications Generic Name Dose Route Start Last Admin Trade Name Freq PRN Reason Stop Dose Admin Iohexol 100 ml 08/04/25 17:37 08/04/25 17:37 Iohexol 350 Mg/Ml 100 Ml Infus..Btl IV 08/04/25 17:38 70 ml ONCE ONE Administration Critical Care Time Critical Care Time Critical Care Time: Yes Total Critical Care Time: 60 Attestation: I have personally provided critical care time. Time includes review of lab data, radiology results, discussion with consultants, and monitoring for potential decompensation. Intervention performed as documented. Discharge Plan Discharge Clinical Impression: Acute alteration in mental status, Aphasia Patient Disposition: Admitted As Inpatient Print Language: Italian
[2025-08-04 16:56] LABS: MANUAL DIFF FLAG NO
[2025-08-04 16:58] LABS: Hematocrit 39.1 % (37.0-47.0); Hemoglobin 13.1 g/dl (12.0-16.0); Imm Gran Abs Auto 0.05 X10*3/uL (0.00-0.03); Imm Gran Pct Auto 0.5 % (0.0-0.4); Lymphocytes Absolute Auto 1.2 X10*3/uL (1.2-4.9); Mean Corpuscular HGB Conc 33.5 g/dl (31.0-35.0); Mean Corpuscular Hemoglobin 31.3 pg (27.0-33.0); Mean Corpuscular Volume 93.3 fL (80.0-98.0); NRBC Abs Auto 0.000 X10*3/uL (0.0-0.012); NRBC Pct Auto 0.0 /100WBC (0.0-0.2); Platelet Count 342 X10*3/uL (160-400); Red Blood Count 4.19 X10*6/uL (4.20-5.50); White Blood Count 9.6 X10*3/uL (4.8-10.8)
[2025-08-04 17:01] VITALS: BP 178/77; PULSE 83; RESP 16; TEMP 36.8; O2SAT 96
[2025-08-04 17:13] LABS: Alanine Aminotransferase 59 U/L (0-31); Albumin Level 4.6 g/dL (3.5-5.0); Alkaline Phosphatase 58 U/L (39-117); Anion Gap 14 (12-20); Aspartate Amino Transferase 36 U/L (5-31); Blood Urea Nitrogen 7 mg/dL (9-16); Calcium 9.4 mg/dL (8.4-10.2); Carbon Dioxide 27 mmol/L (22-29); Chloride 107 mmol/L (96-108); Creatinine Clr Calc Pharmacy 79.6; Estimated Glomerular Filt Rate > 60; Lipase 16 U/L (8-78); Magnesium 2.3 mg/dL (1.6-2.6); Potassium 3.6 mmol/L (3.3-5.1); Sodium 144 mmol/L (135-145); Total Protein 7.2 g/dL (6.5-8.0)
--- NOTE | 2025-08-04 17:29 | PC.NURSE ---
Pt is in CT.
[2025-08-04 17:30] LABS: Prothrombin Time Whole Bld POC 12.5 sec (11.1-13.5); ~PT, ~INR - Anti Coag Clinic 1.0 (0.9-1.1)
[2025-08-04 17:32] LABS: Glucose, Whole Blood 90 mg/dL (60-115)
[2025-08-04] MEDS: iohexoL 350 MG/ML 100 ML INFUS..BTL IV (17:37)
[2025-08-04 17:59] LABS: Appearance Urine Clear; Glucose Urine UA Negative (Negative); PH 8.5 (5.0-9.0); Specific Gravity - Urine 1.010 (1.005-1.025); UMIC TRIGGER UACC YES
[2025-08-04 18:09] LABS: Cannabinoid Screen Urine Not Detected (Not Detect)
--- NOTE | 2025-08-04 18:56 | ECG_ITS ---
Test Reason : STROKE Blood Pressure : */* mmHG Vent. Rate : 77 BPM Atrial Rate : 77 BPM P-R Int : 150 ms QRS Dur : 140 ms QT Int : 424 ms P-R-T Axes : 69 78 28 degrees QTcB Int : 479 ms Sinus rhythm with occasional Premature ventricular complexes Right bundle branch block Abnormal ECG When compared with ECG of 27-Jul-2025 21:22, No significant change was found Referred By: Chaparrita Sherwood Electronically Signed By: ARCHIE VIVAR
[2025-08-04 19:49] VITALS: BP 145/74; PULSE 85; RESP 14; TEMP 37.1; O2SAT 96
--- NOTE | 2025-08-04 20:17 | PHA.MEDREC ---
Pharmacy Consult ? Medication Reconciliation Pharmacy has completed the medication reconciliation. Pt states she is not taking erythromycin eye oint only tobradex daily
[2025-08-04 20:42] VITALS: BP 156/65; PULSE 78; O2SAT 97
--- NOTE | 2025-08-04 20:45 | PC.NURSE ---
task sheet complete with patient.
[2025-08-04 23:22] VITALS: BP 146/49; PULSE 75; RESP 18; TEMP 36.9; O2SAT 96
[2025-08-05] VITALS (8 sets, daily range): BP systolic 101–149; BP diastolic 46–90; PULSE 61–96; RESP 14–19; TEMP 36.6–37.1; O2SAT 95–99
--- NOTE | 2025-08-05 | EEG_ITS ---
Referring MD:Akbar Franco MD History: H/O anxiety, depression, GERD- recent admission for possible appendicitis was treated with IV antibiotics- yesterday pt has a global transient amnesia event- duration 6-8 hours- presently pt is at baseline able to carry on conversation and aware of surroundings- MRI of brain showed sm vessel disease Medication:acetaminophen, asa, bupropion, calcium, escitaopram oxalate, famotidine, heparin, loratadine, magnesium Technical Description: Photic stimulation: Completed Hyperventilation: Omitted- cardiac source not ruled out State of Consciousness: awake and drowsy Behavioral State: pleasant and cooperative Sedation:no Skull defect: No Technologist: LAVINIA Recording Duration/ Time: 25:42 Last Meal:08/05/2025 9:00:00 AM Time / date of last symptom:08/04/2025 7:00:00 AM 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 Federico Keating MD [facility]
[2025-08-05] MEDS: 0.9 % Sodium Chloride Flush 3 ML SYRINGE IVFLUSH ×2 (03:20→19:51)
--- NOTE | 2025-08-05 04:17 | PM.IMHP ---
History of Present Illness Date of Service: 08/04/25 Chief Complaint: Word-finding difficulty 70-year-old female with a past medical history of anxiety, depression, GERD; recent admission to the hospital for possible appendicitis-treated with IV antibiotics; presented to the hospital today with a chief complaint of altered mental status. Most of the history provided by the patient's family at bedside. Reportedly patient was noted to be confused when talking on the phone and patient is forgetful about recent events including the family talking over the phone. Patient at that time also had word-finding difficulty which currently improved. Patient denies any headaches or blurry visions. Patient reports that she intermittently has abdominal discomfort. Denies any diarrhea. Denies any nausea or vomiting. Denies any chest pain or palpitations. Review of all other systems is negative except mentioned above ER course: Per ER team, patient's exam was grossly nonfocal; patient oriented x2; CT head and CT angio head and neck showed no acute findings. CT abdomen pelvis was done which showed appendiceal findings similar to prior CAT scan. [facility] Medical History No known health problems Social History Household Members: Children Housing: House Do you presently have visiting nurse or other home services: No Alcohol intake: current Alcohol intake frequency: holidays/special occasions only Patient Tobacco Use Status: Never used Tobacco Smoked in Last 30 Days: No Use of substances other than those prescribed or required for medical reasons: Yes Substance Use Type: Marijuana Advance Directives: No Advance Directives Information Provided: No Do you have a plan to hurt others: No Plan Nutrition Risks: No Nutritional Risk service: No Meds Allergies Allergy/AdvReac Type Severity Reaction Status Date / Time prochlorperazine (From Allergy Unknown UNKNOWN Verified 08/04/25 15:12 COMPAZINE) Active Medications: Current Medications Acetaminophen (Acetaminophen 325 Mg Tablet) 650 mg PO Q6H PRN PRN Reason: Pain, Mild 1-3,fever,headache Last Admin: 08/04/25 22:09 Dose: 650 mg Calcium Carbonate (Calcium Carbonate 750 Mg Tab.Chew) 750 mg PO Q4H PRN PRN Reason: Heartburn Magnesium Hydroxide (Milk Of Magnesia 30 Ml Oral.Susp) 30 ml PO DAILY PRN PRN Reason: Constipation Melatonin (Melatonin 3 Mg Tablet) 6 mg PO BEDTIME PRN PRN Reason: Insomnia Sodium Chloride (0.9 % Sodium Chloride Flush 3 Ml Syringe) 3 ml IVFLUSH QSHIFT [facility] Last Admin: 08/05/25 03:20 Dose: 3 ml Home Medications ?Medication ?Instructions ?Recorded ?Confirmed ?Last Taken ?Type bupropion HCl 300 mg 24 hr tablet, 300 mg PO DAILY 07/28/25 08/04/25 08/04/25 History extended release cetirizine 10 mg tablet (Zyrtec) 10 mg PO DAILY 07/28/25 08/04/25 08/04/25 History escitalopram oxalate 10 mg tablet 10 mg PO DAILY 07/28/25 08/04/25 08/04/25 History esomeprazole magnesium 20 mg 20 mg PO DAILY 07/28/25 08/04/25 08/04/25 History capsule,delayed release (Nexium) famotidine 20 mg tablet 20 mg PO BID 07/28/25 08/04/25 08/04/25 History aspirin 81 mg tablet,delayed 81 mg PO DAILY 08/04/25 08/04/25 08/04/25 History release tobramycin 0.3 %-dexamethasone 1 drp ophthalmic-Right DAILY 08/04/25 08/04/25 08/04/25 History 0.05 % eye drops,suspension (Tobradex ST) Physical Exam Vital Signs and Narrative: Vital Signs: Last Vital Signs Temp 98.2 F 08/05/25 03:23 Pulse 82 08/05/25 03:23 Resp 15 08/05/25 03:23 BP 124/46 L 08/05/25 03:23 Pulse Ox 96 08/05/25 03:23 O2 Del Method Room Air 08/05/25 03:23 BMI result Body Mass Index 22.7 Gen: Appears be in no acute distress HEENT: NCAT, Moist mucosa. Pulmonary: Vesicular breath sounds, fair air entry CVS: Normal S1-S2 Abdomen: BS+, Soft, Nontender Extremities: Warm well perfused Neuro: Alert and awake. Nonfocal Results Labs 08/04/25 16:52 08/04/25 16:52 Labs: Laboratory Results - last 24 hr 08/04/25 08/04/25 08/04/25 16:51 16:52 17:25 MCV 93.3 MCH 31.3 MCHC 33.5 RDW 12.5 Plt Count 342 D MPV 8.9 L Immature Gran % (Auto) 0.5 H Neut % (Auto) 79.6 H Lymph % (Auto) 12.9 L Travis % (Auto) 5.7 Eos % (Auto) 1.1 Baso % (Auto) 0.2 Lymph # (Auto) 1.2 Travis # (Auto) 0.6 Eos # (Auto) 0.1 Baso # (Auto) 0.0 Abs Immat Gran (auto) 0.05 H Absolute Neuts (auto) 7.6 Absolute Nucleated RBC 0.000 Nucleated RBC % (auto) 0.0 ESR 12 Whole Blood PT Whole Blood INR Hold Blue Top SEE NOTE Anion Gap 14 Estim Creat Clear Calc 79.6 Estimated GFR > 60 POC Glucose 90 Random Glucose 86 Calcium 9.4 D Magnesium 2.3 Total Bilirubin 0.3 Direct Bilirubin 0.1 AST 36 H ALT 59 H Alkaline Phosphatase 58 C-Reactive Protein 0.15 Total Protein 7.2 Albumin 4.6 Lipase 16 Urine Color Urine Appearance Urine pH Ur Specific [place] Urine Protein Urine Glucose (UA) Urine Ketones Urine Blood Urine Nitrite Ur Leukocyte Esterase Urine RBC Urine WBC Ur Squamous Epith Cells Urine Bacteria Hyaline Casts Urine Opiates Screen Ur Buprenorphine Scrn Ur Oxycodone Screen Urine Methadone Screen Urine Fentanyl Screen Ur Barbiturates Screen Ur Phencyclidine Scrn Ur Amphetamines Screen U Benzodiazepines Scrn Urine Cocaine Screen U Marijuana (THC) Screen Ethyl Alcohol < 10 08/04/25 08/04/25 17:26 17:50 MCV MCH MCHC RDW Plt Count MPV Immature Gran % (Auto) Neut % (Auto) Lymph % (Auto) Travis % (Auto) Eos % (Auto) Baso % (Auto) Lymph # (Auto) Travis # (Auto) Eos # (Auto) Baso # (Auto) Abs Immat Gran (auto) Absolute Neuts (auto) Absolute Nucleated RBC Nucleated RBC % (auto) ESR Whole Blood PT 12.5 Whole Blood INR 1.0 Hold Blue Top Anion Gap Estim Creat Clear Calc Estimated GFR POC Glucose Random Glucose Calcium Magnesium Total Bilirubin Direct Bilirubin AST ALT Alkaline Phosphatase C-Reactive Protein Total Protein Albumin Lipase Urine Color Yellow Urine Appearance Clear Urine pH 8.5 Ur Specific [place] 1.010 Urine Protein Negative Urine Glucose (UA) Negative Urine Ketones Negative Urine Blood Small (1+) H Urine Nitrite Negative Ur Leukocyte Esterase Negative Urine RBC 0-2 Urine WBC 0-5 Ur Squamous Epith Cells 0-2 Urine Bacteria None Seen Hyaline Casts 0-2 Urine Opiates Screen Not Detected Ur Buprenorphine Scrn Not Detected Ur Oxycodone Screen Not Detected Urine Methadone Screen Not Detected Urine Fentanyl Screen Not Detected Ur Barbiturates Screen Not Detected Ur Phencyclidine Scrn Not Detected Ur Amphetamines Screen Not Detected U Benzodiazepines Scrn Not Detected Urine Cocaine Screen Not Detected U Marijuana (THC) Screen Not Detected Ethyl Alcohol Assessment and Plan (1) Acute alteration in mental status: Status: Acute Plan 70-year-old female with a past medical history of anxiety, depression, GERD; recent admission to the hospital for possible appendicitis-treated with IV antibiotics; presented to the hospital today with a chief complaint of altered mental status. Altered mental status: Word-finding difficulty: Forgetfulness: Short-term memory impairment Patient's speech improved. Exam grossly nonfocal CT head and CT angio head and neck showed no acute findings No signs of infection MRI brain Folate, B12, TSH, RPR Neurology consult Echocardiogram Abdominal discomfort: Patient repeat CT scan today showed similar findings on the appendix compared to prior CAT scan when was she was admitted to the hospital. Will consult General surgery Hold off antibiotics for now DVT prophylaxis: Subcu heparin Code status: Full code Quality Stroke Does the patient have a stroke diagnosis?: No VTE Prior VTE?: No VTE Risk Level:: Medical - moderate - high VTE Device Contraindication: N/A - Device Ordered VTE Drug Contraindication: Treatment Not Indicated
[2025-08-05 04:54] LABS: MANUAL DIFF FLAG NO
[2025-08-05 04:57] LABS: Hematocrit 37.0 % (37.0-47.0); Hemoglobin 12.2 g/dl (12.0-16.0); Imm Gran Abs Auto 0.03 X10*3/uL (0.00-0.03); Imm Gran Pct Auto 0.5 % (0.0-0.4); Lymphocytes Absolute Auto 1.6 X10*3/uL (1.2-4.9); Mean Corpuscular HGB Conc 33.0 g/dl (31.0-35.0); Mean Corpuscular Hemoglobin 30.7 pg (27.0-33.0); Mean Corpuscular Volume 93.2 fL (80.0-98.0); NRBC Abs Auto 0.000 X10*3/uL (0.0-0.012); NRBC Pct Auto 0.0 /100WBC (0.0-0.2); Platelet Count 324 X10*3/uL (160-400); Red Blood Count 3.97 X10*6/uL (4.20-5.50); White Blood Count 6.5 X10*3/uL (4.8-10.8)
[2025-08-05 05:14] LABS: Alanine Aminotransferase 46 U/L (0-31); Albumin Level 3.8 g/dL (3.5-5.0); Alkaline Phosphatase 50 U/L (39-117); Anion Gap 13 (12-20); Aspartate Amino Transferase 24 U/L (5-31); Blood Urea Nitrogen 5 mg/dL (9-16); Calcium 8.8 mg/dL (8.4-10.2); Carbon Dioxide 26 mmol/L (22-29); Chloride 108 mmol/L (96-108); Creatinine Clr Calc Pharmacy 80.9; Estimated Glomerular Filt Rate > 60; Potassium 3.5 mmol/L (3.3-5.1); Sodium 143 mmol/L (135-145); Total Protein 6.0 g/dL (6.5-8.0)
[2025-08-05 05:21] LABS: Cholesterol 153 mg/dL (<200); HDL Cholesterol 54 mg/dL (>40); Triglycerides 67 mg/dL (<150)
[2025-08-05 05:36] LABS: Thyroid Stimulating Hormone 1.87 uIU/mL (0.32-4.0)
[2025-08-05 05:53] LABS: Folate 12.9 ng/mL (> or = 4.0); Vitamin B12 502 pg/mL (200-900)
[2025-08-05 06:41] LABS: Syphilis Screen Nonreactive (Nonreactive)
--- NOTE | 2025-08-05 07:00 | CA_ITS ---
Transthoracic Echocardiogram Patient (Last, First, Middle): Brenda Maciel, Gender: F Date of : 1955 Age: 70 Procedure Date: 08/05/2025 Procedure Type: Transthoracic Echocardiogram Location: ER Height: 165.1 cm Weight: 61.69 kg BSA: 1.68 m2 Heart Rate: 91 bpm BP: 134 / 60 mmHg Nursing Coordinator: SB Referring MD: Padilla Lou MD Symptoms: CVA Study Quality: Adequate w contrast ECG Rhythm: Frequent ventricular premature beats Conclusions: - The left ventricular systolic function is normal. The visually estimated ejection fraction is between 65-70%. - There is an interatrial septal aneurysm seen bowing to the right. - No obvious valvular pathology seen on this study. - If clinically indicated, consider bubble study. Findings Procedure Information Contrast agent, definity, is being given per protocol without apparent complications. Left Ventricle Normal left ventricular cavity size. There is normal left ventricular wall thickness. The left ventricular systolic function is normal. The visually estimated ejection fraction is between 65-70%. There is no evidence of regional wall motion abnormalities. Diastolic function is normal for age. Right Ventricle Normal right ventricular cavity size and systolic function. Atria Both atria are normal in size. There is an interatrial septal aneurysm seen bowing to the right. Interatrial shunt cannot be excluded. Aortic Valve There is a normal trileaflet aortic valve. There is no aortic valve stenosis. There is no aortic valve regurgitation. Mitral Valve There is trace mitral valve regurgitation. There is no mitral valve stenosis. Pulmonic Valve There is trace pulmonic valve regurgitation. Tricuspid Valve Normal tricuspid valve structure. There is trace tricuspid valve regurgitation. There is no evidence of pulmonary hypertension. Great Vessels The asc aorta is normal in size. Venous The inferior vena cava is normal in size and collapses greater than 50% with inspiration. Pericardium/Pleural There is no evidence of pericardial effusion. Prior Study Comparison No prior study available for comparison. Recommendations, Care & Conclusions No obvious valvular pathology seen on this study. Measurements 2D Linear Measurements IVSd: 0.86 0.6-0.9/0.6-1.0 cm LVIDd: 4.67 3.9-5.3/4.2-5.9 cm LVIDd Index: 2.78 2.4-3.2/2.2-3.1 cm/m2 LVIDs: 2.99 2.0-3.6 cm LVPWd: 0.73 0.7-1.1 cm LA Diam: 3.20 2.7-3.8/3.0-4.0 cm LAIDs Index: 1.90 1.5-2.3 cm/m2 LV Mass: 149.08 67-162/88-224 g LV Mass Index: 88.74 43-95/49-115 g/m2 LVOT Diam: 2.10 3.0+(-)1.3 cm 2D Systolic Function EF 4C: 71.00 >55% EF 2C: 69.90 >55% EF BiP: 70.60 >55% Mitral Valve MV Pk E: 0.79 MV PK A: 0.75 MV Decel Time: 182.00 E/A: 1.10 E'Lateral: 7.72 E'Medial: 7.29 E/E' Med: 10.90 E/E' Lat: 10.30 PHT: 53.00 MVA PHT: 4.15 Decel [place]: 4.36 Aortic Valve AoV Pk [place]: 1.19 AoV Mn [place]: 0.82 AoV VTI: 0.25 AoV Pk Grad: 6.00 Aov Mn Grad: 3.00 RANDY Cont.VTI: 2.98 LVOT LVOT Pk [place]: 1.09 LVOT Mn [place]: 0.76 LVOT VTI: 0.21 LVOT Pk Grad: 5.00 LVOT Mn Grad: 3.00 LVOT Diam: 2.10 LVOT Area: 3.46 Diastolic Function MV Pk E: 0.79 MV Pk A: 0.75 E/A: 1.10 E'Medial: 7.29 E/E' Med: 10.90 E' Laterial: 7.72 E/E' Lat: 10.30 Right Ventricle TAPSE (mm): 25.20 TVS' [place]: 14.00 Tricuspid Valve TR Pk [place]: 2.50 TR Pk Grad: 25.00 Great Vessels Aorta Sinus of Valsalva: 2.90 2.0-3.5 cm Ao Asc: 2.60 2.1-3.4 cm Ao Arch: 2.30 Pulmonary Veins Pulm Vein S/D 0.90 Pulmonary Valve PV Pk [place]: 0.91 Peak PV Grad: 3.00 Updated in Other Vendor System with Status of Final Kwadwo Mary MD electronically signed on 08/05/2025 12:31:36 PM with status of Final
--- NOTE | 2025-08-05 08:16 | P.CONGS_ITS ---
History of Present Illness Consult details Consult date: 08/05/25 <Bren Anaya PA-C - Last Filed: 08/05/25 08:28> Requesting physician: Padilla Lou <Bren Anaya PA-C - Last Filed: 08/05/25 08:28> Narrative: 70-year-old female with PMH significant for anxiety, depression, GERD who presented to the ED with altered mental status. History of events obtained from EMR as patient does not have much memory of events yesterday. Reportedly patient was noted to be confused when talking on the phone and also had word-finding difficulty. CT head and CT angio head and neck showed no acute findings. She was recently presented with vomiting and diarrhea and was found to have enlarged appendix without surrounding periappendiceal changes on CT scan and was therefore admitted for observation for concern of acute appendicitis but picture was more suggestive of gastroenteritis. Her symptoms improved and she was discharged on 07/30/25 on a short course of Augmentin. She reports feeling well over the weekend but is unclear on the events following. She reports she has had diarrhea on and off for several years. She has been seen in the past by GI for IBS type picture. She reports recent colonoscopy in the past 10 year without significant findings. Repeat CT abdomen pelvis performed on presentation again showed enlarged appendix without any surrounding inflammatory changes. She had no leukocytosis. She reports some mild lower abdominal cramping. <Bren Anaya PA-C - Last Filed: 08/05/25 08:28> Review of Systems 2 Review of Systems: Currently denies fever, chills, CP, palpitations, blood in stool, vomiting, dizziness. <Bren Anaya PA-C Last Filed: 08/05/25 08:28> [facility] Past Medical History Medical History: Medical History No known health problems <LYNDA Huff Last Filed: 08/05/25 08:28> Social History Social History: Social History Household Members: Children Housing: House Do you presently have visiting nurse or other home services: No Alcohol intake: current Alcohol intake frequency: holidays/special occasions only Patient Tobacco Use Status: Never used Tobacco Smoked in Last 30 Days: No Use of substances other than those prescribed or required for medical reasons: Yes Substance Use Type: Marijuana Advance Directives: No Advance Directives Information Provided: No Do you have a plan to hurt others: No Plan Nutrition Risks: No Nutritional Risk service: No <Bren Anaya PA-C - Last Filed: 08/05/25 08:28> Meds Allergies/Adverse reactions: Allergies Allergy/AdvReac Type Severity Reaction Status Date / Time prochlorperazine (From Allergy Unknown UNKNOWN Verified 08/04/25 15:12 COMPAZINE) <Bren Anaya PA-C - Last Filed: 08/05/25 08:28> Active Medications: Current Medications Acetaminophen (Acetaminophen 325 Mg Tablet) 650 mg PO Q6H PRN PRN Reason: Pain, Mild 1-3,fever,headache Last Admin: 08/04/25 22:09 Dose: 650 mg Aspirin (Aspirin Enteric Coated 81 Mg Tablet.Dr) 81 mg PO DAILY [facility] Bupropion HCl (Bupropion Hcl Xl 300 Mg Tab.Er.24h) 300 mg PO DAILY [facility] Calcium Carbonate (Calcium Carbonate 750 Mg Tab.Chew) 750 mg PO Q4H PRN PRN Reason: Heartburn Escitalopram Oxalate (Escitalopram Oxalate 10 Mg Tablet) 10 mg PO DAILY [facility] Famotidine (Famotidine 20 Mg Tablet) 20 mg PO BID [facility] Heparin Sodium (Porcine) (Heparin Sodium,Porcine 5,000 Unit/Ml Vial) 5,000 unit SUBCUT Q8H [facility] Loratadine (Loratadine 10 Mg Tablet) 10 mg PO DAILY [facility] Magnesium Hydroxide (Milk Of Magnesia 30 Ml Oral.Susp) 30 ml PO DAILY PRN PRN Reason: Constipation Melatonin (Melatonin 3 Mg Tablet) 6 mg PO BEDTIME PRN PRN Reason: Insomnia Sodium Chloride (0.9 % Sodium Chloride Flush 3 Ml Syringe) 3 ml IVFLUSH QSHIFT [facility] Last Admin: 08/05/25 07:32 Dose: Not Given <Bren Anaya PA-C - Last Filed: 08/05/25 08:28> Home medications: Home Medications ?Medication ?Instructions ?Recorded ?Confirmed ?Last Taken ?Type bupropion HCl 300 mg 24 hr tablet, 300 mg PO DAILY 08/1108/04/25 08/04/25 History extended release cetirizine 10 mg tablet (Zyrtec) 10 mg PO DAILY 08/04/25 08/04/25 History escitalopram oxalate 10 mg tablet 10 mg PO DAILY 07/2808/04/25 08/04/25 History esomeprazole magnesium 20 mg 20 mg PO DAILY 07/28/25 1 10/04/24 08/04/25 History capsule,delayed release (Nexium) famotidine 20 mg tablet 20 mg PO BID 07/28/2508/04/25 History aspirin 81 mg tablet,delayed 81 mg PO DAILY 08/04/25 1 10/04/24 08/04/25 History release tobramycin 0.3 %-dexamethasone 1 drp ophthalmic-Right DAILY 08/04/25 08/04/25 08/04/25 History 0.05 % eye drops,suspension (Tobradex ST) <LYNDA Huff Last Filed: 08/05/25 08:28> Physical Exam 2 Vital Signs: Vital Signs: Last Vital Signs Temp 98.5 F 08/05/25 06:51 Pulse 94 08/05/25 06:51 Resp 17 08/05/25 06:51 BP 134/60 08/05/25 06:51 Pulse Ox 99 08/05/25 06:51 O2 Del Method Room Air 08/05/25 06:51 BMI result Body Mass Index 22.7 <LYNDA Huff Last Filed: 08/05/25 08:28> Const: General: comfortable, no acute distress and alert <LYNDA Huff Last Filed: 08/05/25 08:28> Orientation/consciousness: oriented to person and oriented to place < LYNDA Huff Last Filed: 08/05/25 08:28> Resp: Effort & Inspection: normal respiratory effort and able to speak in complete sentences <LYNDA Huff Last Filed: 08/05/25 08:28> GI: Other: abdomen soft, nondistended nontender throughout to deep palpation <LYNDA Huff Last Filed: 08/05/25 08:28> Palpation (GI): no guarding and not rigid <LYNDA Huff Last Filed: 08/05/25 08:28> Percussion: Yes normal to percussion <LYNDA Huff Last Filed: 08/05/25 08:28> Skin: General skin exam: no rashes or lesions noted and no jaundice < LYNDA Huff Last Filed: 08/05/25 08:28> Neuro: General: oriented to person and oriented to place <LYNDA Huff Last Filed: 08/05/25 08:28> Extrem: Other: no LE edema <LYNDA Huff Last Filed: 08/05/25 08:28> Results Labs Result diagrams: 08/05/25 04:40 08/05/25 04:40 <LYNDA Huff Last Filed: 08/05/25 08:28> Labs: Abnormal lab results 08/04/25 08/04/25 08/05/25 Range/Units 16:52 17:50 04:40 RBC 4.19 L 3.97 L (4.20-5.50) X10*6/uL MPV 8.9 L 9.1 L (9.4-12.3) fL Immature Gran % (Auto) 0.5 H 0.5 H (0.0-0.4) % Neut % (Auto) 79.6 H (45-73) % Lymph % (Auto) 12.9 L (20-40) % Abs Immat Gran (auto) 0.05 H (0.00-0.03) X10*3/uL BUN 7 L 5 L (9-16) mg/dL AST 36 H (5-31) U/L ALT 59 H 46 H (0-31) U/L Total Protein 6.0 L (6.5-8.0) g/dL Urine Blood Small (1+) H (Negative) Short CBC 08/04/25 08/05/25 Range/Units 16:52 04:40 WBC 9.6 6.5 (4.8-10.8) X10*3/uL Hgb 13.1 12.2 (12.0-16.0) g/dl Hct 39.1 37.0 (37.0-47.0) % Plt Count 342 D 324 (160-400) X10*3/uL BMP 08/04/25 08/05/25 16:52 04:40 Sodium 144 143 Potassium 3.6 3.5 Chloride 107 108 Carbon Dioxide 27 26 BUN 7 L 5 L Creatinine 0.60 0.59 Calcium 9.4 D 8.8 D Liver Function 08/04/25 08/05/25 Range/Units 16:52 04:40 Total Bilirubin 0.3 0.4 (0.0-1.0) mg/dL Direct Bilirubin 0.1 (0.0-0.5) mg/dL AST 36 H 24 (5-31) U/L ALT 59 H 46 H (0-31) U/L Alkaline Phosphatase 58 50 (39-117) U/L Albumin 4.6 3.8 (3.5-5.0) g/dL Urine 08/04/25 Range/Units 17:50 Urine Color Yellow Urine Appearance Clear Urine pH 8.5 (5.0-9.0) Ur Specific [place] 1.010 (1.005-1.025) Urine Protein Negative (Neg-Trace) mg/dL Urine Glucose (UA) Negative (Negative) mg/dL All other labs normal. <Bren Anaya PA-C - Last Filed: 08/05/25 08:28> Imaging Abdomen CT scan report/results: report reviewed and image reviewed <Bren Anaya PA-C - Last Filed: 08/05/25 08:28> Additional studies: labs reviewed <Bren Anaya PA-C - Last Filed: 08/05/25 08:28> Assessment and Plan (1) Acute alteration in mental status: Status: Acute <Bren Anaya PA-C - Last Filed: 08/05/25 08:28> Patient is known to the service I had admitted for question of acute appendicitis last week and had been discharged -clinical picture did not appear to be consistent with the acute appendicitis She has had issues for several weeks now Admitted for altered mental status yesterday Abdomen is soft, benign and nontender today She denies any abdominal pain Cat scan reviewed - unchanged from previous Consider GI consult No surgical intervention planned Seen and examined independently <Trent Hazel MD - Last Filed: 08/05/25 08:30> 70 year old female with PMH of anxiety, depression, GERD who presented to the ED and was admitted to the medicine service for altered mental status. She had recent admission from 07/28-07/30/25 for observation as she was found to have an enlarged appendix and presented with perumbilical abd pain and vomiting and then developed diarrhea. Clinical picture was not suggestive of acute appendicitis. She was treated with supportive measures. Her symptoms improved and she was discharged to home. She reports feeling well at home initially. Further events are unclear to patient however this morning she really denies any significant RLQ pain. She is afebrile. She has no WBC count. CT scan again demonstrates a dilated appendix without any surrounding inflammatory changes. Her abdomen is very benign. Again picture is not consistent with acute appendicits. She reports ongoing diarrhea with IBS in the past and may benefit from GI consultation. <Bren Anaya PA-C - Last Filed: 08/05/25 08:28> Procedures Date of Service Date of Service: 08/05/25 <Bren Anaya PA-C - Last Filed: 08/05/25 08:28> 08/05/25 <Trent Hazel MD - Last Filed: 08/05/25 08:30>
[2025-08-05] MEDS: buPROPion HCl XL 300 MG TAB.ER.24H PO (09:23)
[2025-08-05] MEDS: Aspirin Enteric Coated 81 MG TABLET.DR PO (09:23)
--- NOTE | 2025-08-05 09:33 | MHC.CM.PN ---
Met with patient in regards to discharge planning. Patient lives with her her daughter, ambulates independently and had no services prior to coming to the hospital. No services anticipated to be needed because patient is not homebound. PCP verified. Patient states PCP has copy of HCP. T/W is waiting for call back from office if HCP is available. Patient's vehicle is in the parking lot and patient is anticipating transporting herself home when medically stable. IMM explained and signed. Continue to monitor for d/c needs.
--- NOTE | 2025-08-05 10:43 | PM.NEUROCN ---
History of Present Illness Data of Consult Service Date: 08/05/25 Primary Care Provider: Aliyah Broderick MD HPI Reason for consult: Altered mentation This is a 70-year-old female with a h/o anxiety, depression, GERD; with a recent admission to the hospital for possible appendicitis-treated with IV antibiotics; presented to the hospital today with a chief complaint of altered mental status. She remembers waking up in the morning and doing some normal routine things and then has little or very spotty recall for the rest of the day Alana's she was in the hospital in the evening hours. She had talked to her daughter earlier and was acting somewhat confused and repeating herself and was told to come to the emergency room and she drove herself to the hospital parked the car and came to the emergency room. She kept being repetitive with a no short-term memory till the evening which is a matter of about 6 or 8 hours. She now has full recall of everything subsequent and feels back to her baseline today. I confirmed all of this information with her son who was at bedside. He confirmed that she was forgetful and confused when talking on the phone with her daughter. She denies any headaches or blurry visions. Patient reports that she intermittently has abdominal discomfort, without diarrhea nausea vomiting chest pain. No previous history of TIA seizures or amnesia. CT of the brain was unremarkable with no acute findings. CTA of the head and neck showed mild soft plaque at the carotid bifurcation without hemodynamically significant stenosis. [facility] Past Medical History Medical History No known health problems Social History Social History Household Members: Children Housing: House Do you presently have visiting nurse or other home services: No Alcohol intake: current Alcohol intake frequency: holidays/special occasions only Patient Tobacco Use Status: Never used Tobacco Smoked in Last 30 Days: No Use of substances other than those prescribed or required for medical reasons: Yes Substance Use Type: Marijuana Have you been hit, kicked, punched, or otherwise hurt by someone within the past year? If so, by whom?: No Do you feel safe in your current relationship?: No Current Relationship Is there a partner from a previous relationship who is making you feel unsafe now?: No Are you made to feel afraid or neglected: No Advance Directives: No Advance Directives Information Provided: No Do you have a plan to hurt others: No Plan Recently lost weight without trying: No Nutrition Risks: No Nutritional Risk Patient : No : No Poor oral hygiene: No service: No Meds Allergies Allergy/AdvReac Type Severity Reaction Status Date / Time prochlorperazine (From Allergy Unknown UNKNOWN Verified 08/04/25 15:12 COMPAZINE) Active Medications: Current Medications Acetaminophen (Acetaminophen 325 Mg Tablet) 650 mg PO Q6H PRN PRN Reason: Pain, Mild 1-3,fever,headache Last Admin: 08/05/25 09:26 Dose: 650 mg Aspirin (Aspirin Enteric Coated 81 Mg Tablet.Dr) 81 mg PO DAILY [facility] Last Admin: 08/05/25 09:23 Dose: 81 mg Bupropion HCl (Bupropion Hcl Xl 300 Mg Tab.Er.24h) 300 mg PO DAILY [facility] Last Admin: 08/05/25 09:23 Dose: 300 mg Calcium Carbonate (Calcium Carbonate 750 Mg Tab.Chew) 750 mg PO Q4H PRN PRN Reason: Heartburn Escitalopram Oxalate (Escitalopram Oxalate 10 Mg Tablet) 10 mg PO DAILY [facility] Last Admin: 08/05/25 09:23 Dose: 10 mg Famotidine (Famotidine 20 Mg Tablet) 20 mg PO BID [facility] Last Admin: 08/05/25 09:23 Dose: 20 mg Heparin Sodium (Porcine) (Heparin Sodium,Porcine 5,000 Unit/Ml Vial) 5,000 unit SUBCUT Q8H [facility] Last Admin: 08/05/25 09:23 Dose: 5,000 unit Loratadine (Loratadine 10 Mg Tablet) 10 mg PO DAILY [facility] Last Admin: 08/05/25 09:23 Dose: 10 mg Magnesium Hydroxide (Milk Of Magnesia 30 Ml Oral.Susp) 30 ml PO DAILY PRN PRN Reason: Constipation Melatonin (Melatonin 3 Mg Tablet) 6 mg PO BEDTIME PRN PRN Reason: Insomnia Sodium Chloride (0.9 % Sodium Chloride Flush 3 Ml Syringe) 3 ml IVFLUSH QSHIFT [facility] Last Admin: 08/05/25 07:32 Dose: Not Given Home Medications ?Medication ?Instructions ?Recorded ?Confirmed ?Last Taken ?Type bupropion HCl 300 mg 24 hr tablet, 300 mg PO DAILY 07/28/25 08/04/25 08/04/25 History extended release cetirizine 10 mg tablet (Zyrtec) 10 mg PO DAILY 07/28/25 08/04/25 08/04/25 History escitalopram oxalate 10 mg tablet 10 mg PO DAILY 07/28/25 08/04/25 08/04/25 History esomeprazole magnesium 20 mg 20 mg PO DAILY 07/28/25 08/04/25 08/04/25 History capsule,delayed release (Nexium) famotidine 20 mg tablet 20 mg PO BID 07/28/25 08/04/25 08/04/25 History aspirin 81 mg tablet,delayed 81 mg PO DAILY 08/04/25 08/04/25 08/04/25 History release tobramycin 0.3 %-dexamethasone 1 drp ophthalmic-Right DAILY 08/04/25 08/04/25 08/04/25 History 0.05 % eye drops,suspension (Tobradex ST) Physical Exam Vital Signs: Vital Signs: Last Vital Signs Temp 98.5 F 08/05/25 06:51 Pulse 96 08/05/25 10:14 Resp 14 08/05/25 10:14 BP 134/60 08/05/25 06:51 Pulse Ox 99 08/05/25 06:51 O2 Del Method Room Air 08/05/25 06:51 BMI result Body Mass Index 22.7 Neuro: Other: She is alert and oriented with normal intellectual functions. Her cranial nerves 2-12 are normal. Muscle tone and strength are normal in all 4 extremities. Deep tendon reflexes symmetrical 2+ plantar responses are flexor. Gait and coordination was normal. She has a supple neck. Results Labs 08/05/25 04:40 08/05/25 04:40 Labs: Short CBC 08/04/25 08/05/25 Range/Units 16:52 04:40 WBC 9.6 6.5 (4.8-10.8) X10*3/uL Hgb 13.1 12.2 (12.0-16.0) g/dl Hct 39.1 37.0 (37.0-47.0) % Plt Count 342 D 324 (160-400) X10*3/uL BMP 08/04/25 08/05/25 16:52 04:40 Sodium 144 143 Potassium 3.6 3.5 Chloride 107 108 Carbon Dioxide 27 26 BUN 7 L 5 L Creatinine 0.60 0.59 Calcium 9.4 D 8.8 D Liver Function 08/04/25 08/05/25 Range/Units 16:52 04:40 Total Bilirubin 0.3 0.4 (0.0-1.0) mg/dL Direct Bilirubin 0.1 (0.0-0.5) mg/dL AST 36 H 24 (5-31) U/L ALT 59 H 46 H (0-31) U/L Alkaline Phosphatase 58 50 (39-117) U/L Albumin 4.6 3.8 (3.5-5.0) g/dL Urine 08/04/25 Range/Units 17:50 Urine Color Yellow Urine Appearance Clear Urine pH 8.5 (5.0-9.0) Ur Specific [place] 1.010 (1.005-1.025) Urine Protein Negative (Neg-Trace) mg/dL Urine Glucose (UA) Negative (Negative) mg/dL Assessment and Plan (1) Transient global amnesia: Status: Acute Plan Even though workup for this condition is normally negative, I would recommend doing an MRI of the brain and a routine waking EEG Procedures Date of Service Date of Service: 08/05/25
--- NOTE | 2025-08-05 11:44 | MHC.EDTECH ---
Addendum entered by Maki Swartz 08/05/25 12:21: Pt returned from MRI at this time. Original Note: Pt to MRI with transport at this time.
--- NOTE | 2025-08-05 13:11 | MHC.SP.ADU ---
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 Patient was recently admitted for possible appendicitis, treated w/ IV antibiotics. Per ER team: patient's exam was grossly nonfocal; patient oriented x2; CT head and CT angio head and neck showed no acute findings. CT abdomen pelvis was done which showed appendiceal findings similar to prior CAT scan. Medical History: Other: Medical History No known health problems Respiratory Needs: Room Air Patient Orientation: Alert & Oriented x 4 Swallowing History: Dysphagia Specific: Within Functional Limits Comments: Patient passed RN swallow screening 08/04. RN reports patient has been getting regular texture meals and there are no concerns related to her swallow. Pre-evaluation Dietary Consistencies: Regular Pre-eval Liquid Intake: Thin Pre-eval Medication Intake: Whole with Liquid Assessment Tests of Speech & Lang Adults: Clinical Impression: Intact Observations: Patient is alert and oriented x4. She was able to provide her name, date of , age, today's date, and location. Patient stated that her memory went in and out yesterday therefore she was not clear on the circumstances that brought her to the hospital. She described her last hospitalization for the [facility] and that she had gone home afterwards. She says she vomited on Sunday and knows she felt generally unwell yesterday, but does not remember driving herself to the hospital. Patient says that her speech, language, and memory are back to baseline today and she has been clear since this morning. She was accompanied by a family member who also reports that patient's thinking seems to be back to normal. Patient repeated back single words in 5/5 trials and whole sentences in 5/5 trials. She correctly answered responsive naming questions (5/5) and yes/no questions (10/10). She followed simple and two-step commands without difficulty. Patient completed cloze phrases with 1-2 words to form complete sentences in 5/5 trials. She recalled 3-word sequences and number series with up to 7 digits. Patient engaged in conversation appropriately with HEADING REPAIRER. Speech was clear, 100% intelligible, with no disfluencies or hesitancies. Comment: Patient reports her speech, language, cognition are back to baseline this date. On assessment, patient was awake and alert, oriented to person, place, location, and situation. No errors made with word/sentence repetition. She was able to name items by description, answer open ended and yes/no questions appropriately, and follow single- and multi-step commands. HEADING REPAIRER notified MD & RN that screening was unremarkable. Please re-refer with any further concern. Recommendation for Speech Therapy: NA:Typical Evaluation Patient Education: Completed: Yes Patient/Caregiver Education: Described Results of Evaluation Patient expressed understanding of evaluation Family/Caregivers expressed understanding of results Comments/Barriers to Learning: Resaw Feeder Clinican/Clinical Fellow: No Supervisory Statement: N/A Speech Language Pathologist: Cheli Jones M.A., CCC-HEADING REPAIRER
--- OUTSIDE RECORDS SUMMARY | 2025-08-05 13:26 | XMS_ITS | Encounter Summary ---
Author Organization [facility] Address [address] [place] [address] Phone Care Team Providers Care Port Cdl A Driver Name Role Phone Aliyah Broderick MD Primary Care Provider [phone] Audelia Vyas PA-C Unavailable [phone] Aliyah Broderick MD Unavailable Encounter Details Date Type Department Care Team (Late st Contact Info) Description 10/27/2021 Procedure Pass [address] [id number] Social History Tobacco Use Types Packs/Day Years [...] Info) Description 09/16/2025 1:45 PM EST Appointment [address] [address] Aliyah Broderick MD [address] [place] [address] 11/25/2025 2:00 PM EDT Office Visit [facility] [address] [place] [address] Aliyah Broderick MD [address] [facility] [place] [address] [email or web address] documented as of this encounter Visit Diagnoses Not on filedocumented in this encounter Care Teams Port Cdl A Driver Relationship Specialty Start Date End Date Aliyah Broderick MD [address] [facility] [place] [address] PCP - General Family Medicine 10/03/21 Audelia Vyas PA-C [address] [place] [id number] Physician Digitizer Hematology 11/15/21 Aliyah Broderick MD [address] [address] Insurance Assigned Provider 12/22/23 06/27/25 documented as of this encounter Additional Source Comments The information contained in this document represents components of the legal health record. It is not the complete legal health record.[facility]
--- OUTSIDE RECORDS SUMMARY | 2025-08-05 13:26 | XMS_ITS | Encounter Summary ---
Author Organization [facility] Address [address] [facility] [address] [place] [address] Phone Care Team Providers Care Unit Manager Convenience Stores Name Role Phone Aliyah Broderick MD Primary Care Provider [phone] Audelia Vyas PA-C Unavailable [phone] Aliyah Broderick MD Unavailable Encounter Details Date Type Department Care Team (Late st Contact Info) Description 12/13/2022 Procedure Pass [address] [address] Social History Tobacco Use Types Packs/Day Years [...] Description 09/16/2025 1:45 PM EST Appointment [address] [address] Aliyah Broderick MD 15 [facility] [address] [place] [address] [email or web address] 11/25/2025 2:00 PM EDT Office Visit [facility] 15 [facility] [address] [place] [address] Aliyah Broderick MD [address] [address] [email or web address] documented as of this encounter Visit Diagnoses Not on filedocumented in this encounter Additional Health Concerns Assessment Noted Time PHQ-9 Depression Total Score: 9 02/16/20 23 12:42 PM EDT PHQ-2 Depression Total Score: 2 02/16/20 23 12:42 PM EDT documented as of this encounter Care Teams Unit Manager Convenience Stores Relationship Specialty Start Date End Date Aliyah Broderick MD [address] [address] PCP - General Family Medicine 10/03/21 Audelia Vyas PA-C [address] [place] [address] Physician Automobile Mechanic Apprentice Hematology 11/15/21 Aliyah Broderick MD [address] [place] [address] Insurance Assigned Provider 12/22/23 06/27/25 documented as of this encounter Additional Source Comments The information contained in this document represents components of the legal health record. It is not the complete legal health record.[facility]
--- OUTSIDE RECORDS SUMMARY | 2025-08-05 13:26 | XMS_ITS | Clinical Summary ---
Author Organization [facility] Address [address] [address] Phone Care Team Providers Care Material Requirements Planning Manager Name Role Phone Aliyah Broderick MD Primary Care Provider [phone] Audelia Vyas PA-C Unavailable [phone] Allergies Active Allergy Reactions Criticality Noted Date Comments Prochlorperazine Edisylate Dystonia High 0 Medications esomeprazole (NEXIUM) 20 MG capsule Take 20 mg by mouth daily before breakfast. Active aspirin 81 MG EC tablet Take 81 mg by mouth daily. Active cetirizine (ZYRTEC) 10 MG tablet Take 10 mg by mouth daily. Active methylcellulos e (CITRUCEL ORAL) Take by mouth. Active fluticasone propionate (FLONASE) 50 mcg/actuation nasal spray SPRAY 1 SPRAY BY NASAL ROUTE EVERY DAY 32 mL 1 06/27/20 23 Active calcium carbonate-jody min D3 500 mg-400 units per tablet Take 1 tablet by mouth daily. Active Bacillus coagulans-inul in 1 billion-250 cell-mg Cap Take 250 mg by mouth daily. Active estradioL (ESTRACE) 0.01 % (0.1 mg/gram) vaginal cream Place 2 g vaginally daily. X 2 weeks then decrease to twice weekly 42.5 g 1 11/07/19 24 Active levoFLOXacin (LEVAQUIN) 500 MG tablet Take 1 tablet (500 mg total) by mouth daily. 3 tablet 10/29/19 25 Active buPROPion (WELLBUTRIN XL) 300 MG ER 24 hr tabletIndicati ons:Moderate episode of recurrent major depressive disorder TAKE 1 TABLET BY MOUTH EVERY DAY 90 tablet 3 03/03/20 25 Active escitalopram oxalate (LEXAPRO) 10 MG tabletIndicati ons:Moderate episode of recurrent major depressive disorder TAKE 1 TABLET BY MOUTH EVERY DAY 90 tablet 1 05/05/20 25 Active famotidine (PEPCID) 20 MG tablet TAKE 1 TABLET BY MOUTH TWICE A DAY 180 tablet 3 08/05/20 25 Active famotidine (PEPCID) 20 MG tablet TAKE 1 TABLET BY MOUTH TWICE A DAY 180 tablet 1 02/07/20 25 025 Discontinued Active Problems Problem Noted Date Diagnosed Date Caregiver with fatigue 03/12/2024 Assessment & Plan (11/11/2024 9:26 AM EST): We can check labs today, Sounds like she is not eating well which could certianly contribute to her fatigue, although I think mood is also playing a role. Pt agrees and understands. Assessment & Plan (03/12/2024 2:16 PM EDT): [facility] paperwork for intermittent leave completed during visit [...] do some short-term therapy with our in-house BARREL [employer]ATER Discussed risks benefits, potential side effects and [...] Encounters Date Type Department Care Team Description 08/05/2025 Orders Only [facility] [address] [place] [address] ProviderToma MD 08/05/2025 Refill [facility] [address] [place] [address] Sheryl Hughes MD, MPH Medication Refill 07/31/2025 Telephone [facility] [address] [place] [address] Aliyah Broderick MD TCM Visit (No appt mad ) 07/28/2025 Orders Only [facility] [address] [place] [address] ProviderToma MD 06/17/2025 6:01 PM EDT - 06/17/2025 8:10 PM EDT Emergency [facility] [address] [place] [address] Sheryl Yen MD, PhD Discharge Disposition: Home or Self Care 05/05/2025 Refill [facility] [address] [place] [address] Aliyah Broderick MD Medication Refill from Last 3 Months Immunizations Immunization Administration Dates Next Due COVID-19 (Pre-07/09) Moderna Vaccine, mRNA, PF 1 10/26/2020 Influenza High-Dose Quadrivalent Preservative Fr ee IM 06/25/2023,07/17/2022 Influenza High-Dose Trivalent Preservative Free IM 09/30/2024 Influenza Quadrivalent MDCK w/Preservative IM Influenza Quadrivalent Preservative Free IM 10/0 09/2020,10/26/2018 Influenza Recombinant Matty valent Preservative Free [...] Info) Description 09/16/2025 1:45 PM EST Appointment [facility] - [facility] [address] [place] [address] Aliyah Broderick MD 15 [facility] [address] [place] [address] [email or web address] 11/25/2025 2:00 PM EDT Office Visit [facility] 15 [facility] [address] [place], [place] [phone] Aliyah Broderick MD [address] [place] [address] [address] [place] [address] [email or web address] Due Date Last Done Comments COLOGUARD 2001 FIT TEST 2001 FOBT 2001 SIGMOIDOSCOPY 2001 VIRTUAL COLONOSCOPY 2001 ZOSTER VACCINES (1 of 2) 2006 OSTEOPOROSIS SCREENING INITIAL (ONE-TIME) 2021 PNEUMOCOCCAL VACCINES (50+ years) (2 of 2 - PCV) 10/03/2022 10/03/2021 REPEAT PHQ 12/08/2024 11/10/2024, 11/10/2024 MAMMOGRAM 02/15/2025 02/15/2023, 03/0 04/2022, 11/18/2020, Additional history exists INFLUENZA VACCINE (#1) 2025 , 06/25/2023, 06/25/2023, Additional history exists COVID-19 VACCINE ( - 2024- season) 2025 09/30/2024, 06/25/2023, 07/17/2022, Additional history [...] Procedure Name Priority Date/Time Associated Diagnosis Comments OUTSIDE IMAGING Routine 08/04/2025 9:35 AM EST OUTSIDE IMAGING Routine 07/28/2025 11:19 AM EST OUTSIDE IMAGING Routine 07/27/2025 11:19 AM EST HEPATITIS C ANTIBODY, QUALITATIVE Routine 11/10/2024 3:32 PM EST Need for hepatitis C screening test BI MAMMOGRAM SCREENING WITH TOMOSYNTHESIS WITH CAD (BILATERAL) Routine 02/15/2023 3:39 PM EDT Other screening mammogram ENDOSCOPY, COLON 01/04/2022 11:0 7 AM EDT from Last 3 Months or Most Recently Relevant to Health Maintenance Results * Outside Imaging Report Only (08/04/2025 9:35 AM EST) Result [facility] Historical Provider MD BOYLE XR CHEST Final Res ult * Outside Imaging Report Only (07/28/2025 11:19 AM EST) Historical Provider MD BOYLE XR CHEST Edited Re sult - Final * Outside Imaging Report Only (07/27/2025 11:19 AM EST) Result [facility] Provider MD BOYLE XR CHEST Edited Re sult - Final * Hepatitis C antibody, qualitative (11/10/2024 3:32 PM EST) HCV NON-REACTIV E NON-REACTI VE [employer] Blood 11/10/2024 3:32 PM EST 11/10/2024 3:33 PM EST Aliyah Broderick MD LAB BLOOD BKR ORDERABLES Final R esult [address] [address] * BI MAMMOGRAM SCREENING WITH TOMOSYNTHESIS WITH [...] dense, which could obscurea lesion on mammography. Aliyah Broderick MD IMG MG EXAMS Final Result * ENDOSCOPY, COLON (01/04/2022 11:07 AM EDT) Narrative Transcriptions Ishan Palomo MD - 01/04/2022 11:07 AM EDT Patient Name: Brenda Maciel Attending MD:: ISHAN PALOMO MD, Procedure Date: 01/04/2022 11:07 AM Date of : 1955 Age: 66 Admit Type: Outpatient Gender: Female Room: [facility] 05 Referring MD: Aliyah Broderick Exam Type: Colonoscopy [...] bowel preparation was evaluated using the BBPS ([place] Bowel Preparation Scale)with scores of: Right Colon [...] 11:07 AM Procedure Code(s): --- Professional --- 94965, Colonoscopy, flexible; diagnostic, including collection of specimen(s) by brushing or washing, when performed (separateprocedure) --- Technical --- 37033, Colonoscopy, flexible; diagnostic, including collection of specimen(s) [...] or abscess without bleeding CPT copyright 2020 [employer] [place] [employer]. All rights reserved. The codes documented in this report are preliminary and upon manager enterprise reviewmay be revised to meet current compliance requirements. Procedure Date: 01/04/2022 11:07:[address] [place] [address] Aliyah Broderick MD GI PROCEDURE ORDERABLES Final Re sult from Last 3 Months or Most Recently Relevant to Health Maintenance Insurance [facility] MEDICARE REPLACEMENT [facility] MEDICARE [place] [address] [address] [place] [address] MEDICARE REPLACEMENT Care Teams Material Requirements Planning Manager Relationship Specialty Start Date End Date Aliyah Broderick MD [address] [address] [email or web address] PCP - General Family Medicine 10/03/21 Audelia Vyas PA-C 30 [place] [address] [email or web address] Physician Manual Lathe Operator Hematology 11/15/21 Additional Source Comments The information contained in this document represents components of the legal health record. It is not the complete legal health record.[facility]
--- OUTSIDE RECORDS SUMMARY | 2025-08-05 13:26 | XMS_ITS | Encounter Summary ---
Author Organization [facility] Address [address] [facility] [address] [place] [address] Phone Care Team Providers Care Shingle Cutter Name Role Phone Aliyah Broderick MD Primary Care Provider [phone] Audelia Vyas PA-C Unavailable [phone] Aliyah Broderick MD Unavailable Encounter Details Date Type Department Care Team (Late Contact Info) Description 10/27/2021 Ancillary Orders [facility],Outside Imaging [address] [place] [address] System, Provider Not In, [place] [address] Social History Tobacco Use Types Packs/Day Years [...] Info) Description 09/16/2025 1:45 PM EST Appointment [facility] - [facility] [address] [place] [address] Aliyah Broderick MD 15 [facility] [address] [place], [place] [phone] 11/25/2025 2:00 PM EDT Office Visit [facility] 15 [facility] [address] [place] [address] Aliyah Broderick MD 15 [facility] [address] [place] [address] [email or web address] documented as of this encounter Results * [...] on filedocumented in this encounter Care Teams Shingle Cutter Relationship Specialty Start Date End Date Aliyah Broderick MD [address] [address] PCP - General Family Medicine 10/03/21 Audelia Vyas PA-C [address] [place] [address] Physician Scientist Immunology Hematology 11/15/21 Aliyah Broderick MD [address] [address] Insurance Assigned Provider 12/22/23 06/27/25 documented as of this encounter Additional Source Comments The information contained in this document represents components of the legal health record. It is not the complete legal health record.[facility]
--- OUTSIDE RECORDS SUMMARY | 2025-08-05 13:27 | XMS_ITS | Encounter Summary ---
Author Organization [facility] Address 399 [facility] [address] [place] [address] Phone Care Team Providers Care Dairy Farmer Name Role Phone Aliyah Broderick MD Primary Care Provider [phone] Audelia Vyas PA-C Unavailable [phone] Reason for Referral * Consultation (Within 2 weeks) - Authorized Specialty Diagnoses / Procedures Referred By Chata andrews Referred To Contact Diagnoses Abdominal pain Aliyah Broderick MD [address] [place] [address] [address] [place] [address] Phone: tel: fax: [email or web address] Trent Hazel MD [address] [place] [address] Phone: tel: fax: Referral ID Status Reason Start Date Expiration Date V isits Requested Visits Authorized [id number] Authorized 08/11/2025 08/11/2026 99 99 Reason for Visit * Reason Onset Date Comments TCM Visit 07/31/2025 No appt mad Encounter Details Date Type Department Care Team ([facility] Contact Info) Description 07/31/2025 Telephone [facility] 15 [facility] [address] [place] [address] Aliyah Broderick MD 15 [facility] [address] [place] [address] TCM Visit (No appt mad ) Social History Tobacco Use Types Packs/Day Years [...] on file documented as of this encounter Progress Notes * Michelle Coello RN - 08/05/2025 1:10 PM EST S/W Brenda. Pt advised she is currently at [facility]. Yesterday had an episode of confusion and was brought to [facility]. She advised they want to admit her but she is really pushing to go home, notes the neurologist there suspects 'transient global amnesia.' Advised to call us when she is discharged so we can make sure there is a f/u visit in place. Pt appreciates the call, no further questions at this time. * Arely Guerrero LPN - 07/31/2025 3:23 PM EST Referral request in media from [facility] Sur[facility]. Referral pended for review and signature. * Michelle Coello RN - 07/31/2025 10:27 AM EST Requested discharge summary from [facility], awaiting records. * Romelia Spann - 07/31/2025 9:30 AM EST [facility] PEN Top Smart Phrases: Transitional Care Management New Patient: YES/NO: no Hospitalization Name:[facility] Discharge Date:2025 Reason for Visit+ Diagnosis: GI Issues Is the discharge summary in patient chart:YES/NO: no If not did you inform the patient/patient advocate to fax it to the office: YES/NO: no Please inform the patient/patient advocate to fax and bring a copy to the appt. Appointment Date: No appt available please advise Pt Is the appt: Awareness: Appt need to be schedule with in 2 to 14 calendar days from discharge date Additional Note (if applicable): [facility] Call Center CSS Agent (Please do not reply to this user, as this inbox is not monitored. Thank you.) Thank you. documented in this encounter Plan of Treatment Upcoming Encounters Date Type Department Care Team (Late st Contact Info) Description 09/16/2025 1:45 PM EST Appointment [address] [address] Aliyah Broderick MD [address] [place] [address] [email or web address] 11/25/2025 2:00 PM EDT Office Visit [facility] [address] [place] [address] Aliyah Broderick MD [address] [place] [address] [email or web address] Scheduled Referrals Name Type Priority Associated Diagnoses Order Schedule Ambulatory referral to External General Surgery Outpatient Referral Routine Abdominal pain Ordered: 07/31/2025 documented as of this encounter Visit Diagnoses Diagnosis Abdominal pain- Primary Abdominal pain, unspecified site documented in this encounter Additional Health Concerns Assessment Noted Time PHQ-9 Depression Total Score: 16 025 2:45 PM EST PHQ-2 Depression Total Score: 4 11/10/19 25 2:45 PM EST documented as of this encounter Care Teams Dairy Farmer Relationship Specialty Start Date End Date Aliyah Broderick MD [address] [place] [phone] [email or web address] PCP - General Family Medicine 10/03/21 Audelia Vyas PA-C [address] [place] [address] [email or web address] Physician Recruiting Associate Hematology 11/15/21 documented as of this encounter Additional Source Comments The information contained in this document represents components of the legal health record. It is not the complete legal health record.[facility]
--- OUTSIDE RECORDS SUMMARY | 2025-08-05 13:27 | XMS_ITS | Encounter Summary ---
Author Organization [facility] Address [address] [place] [address] Phone Care Team Providers Care Cpas Name Role Phone Aliyah Broderick MD Primary Care Provider [phone] Audelia Vyas PA-C Unavailable [phone] Aliyah Broderick MD Unavailable Encounter Details Date Type Department Care Team (Latest Contact Info) Description 03/28/2022 Transcribe Orders Virtual Department [address] [place] [phone] Yuly Recio, RECREATIONAL THERAPY AIDE [address] [place] [phone] [email or web address] Dysphagia, unspecified type (Primary Dx); Gastroesophageal reflux [...] Info) Description 09/16/2025 1:45 PM EST Appointment [facility] - [address] [address] Aliyah Broderick MD 15 [facility] [address] [place] [address] [email or web address] 11/25/2025 2:00 PM EDT Office Visit [facility] [place] [facility] 15 [facility] [address] [place] [address] Aliyah Broderick MD 15 [facility] [address] [place] [address] [email or web address] documented as of this encounter Results * [...] No penetration or aspiration demonstrated. Procedure Note Amelia Shabazz MD - 05/15/2022 [place] (SPEECH) VIDEO [...] reflux documented in this encounter Care Teams Cpas Relationship Specialty Start Date End Date Aliyah Broderick MD [address] [place] [address] PCP - General Family Medicine 10/03/21 Audelia Vyas PA-C [address] [place] [address] Physician Forger Helper Hematology 11/15/21 Aliyah Broderick MD [address] [place] [address] Insurance Assigned Provider 12/22/23 06/27/25 documented as of this encounter Additional Source Comments The information contained in this document represents components of the legal health record. It is not the complete legal health record.[facility]
--- OUTSIDE RECORDS SUMMARY | 2025-08-05 13:27 | XMS_ITS | Encounter Summary ---
Author Organization [facility] Address 399 [facility] [address] [place] [address] Phone Care Team Providers Care Recruiting Team Lead Name Role Phone Aliyah Broderick MD Primary Care Provider [phone] Audelia Vyas PA-C Unavailable [phone] Encounter Details Date Type Department Care Team (Late st Contact Info) Description 07/28/2025 Orders Only [facility] Medicine [address] [place] [address] Provider, MD Toma [address] [place] [address] Social History Tobacco Use Types Packs/Day Years [...] your housing situation today? I have grupo olson 10/31/2023 How many times have you move [...] Info) Description 09/16/2025 1:45 PM EST Appointment [facility], [facility] D[facility] - [address] [address] Aliyah Broderick MD [address] [place] [address] 11/25/2025 2:00 PM EDT Office Visit [facility] [place] [facility] 15 [facility] 201 [place] [address] Aliyah Broderick MD 15 [facility] 201 [place] [address] [email or web address] documented as of this encounter Procedures Procedure Name Priority Date/Time Associated Diagnosis Comments OUTSIDE IMAGING Routine 07/28/2025 11:19 AM EST OUTSIDE IMAGING Routine 07/27/2025 11:19 AM EST documented in this encounter Results * Outside Imaging Report Only (07/28/2025 11:19 AM EST) us Historical Provider IMNena XR CHEST Edited Re sult - Final * Outside Imaging Report Only (07/27/2025 11:19 AM EST) us Historical Provider MD BOYLE XR CHEST Edited Re sult - Final documented in this encounter Visit Diagnoses Not on filedocumented in this encounter Additional Health Concerns Assessment Noted Time PHQ-9 Depression Total Score: 16 025 2:45 PM EST PHQ-2 Depression Total Score: 4 11/10/19 25 2:45 PM EST documented as of this encounter Care Teams Recruiting Team Lead Relationship Specialty Start Date End Date Aliyah Broderick MD [address] [address] [email or web address] PCP - General Family Medicine 10/03/21 Audelia Vyas PA-C [address] [place] [address] Physician Lead Sharepoint Developer Hematology 11/15/21 documented as of this encounter Additional Source Comments The information contained in this document represents components of the legal health record. It is not the complete legal health record.[facility]
--- OUTSIDE RECORDS SUMMARY | 2025-08-05 13:27 | XMS_ITS | Encounter Summary ---
Author Organization [facility] Address [address] [address] Phone Care Team Providers Care Senior Architectural Designer Name Role Phone Aliyah Broderick MD Primary Care Provider [phone] Audelia Vyas PA-C Unavailable [phone] Aliyah Broderick MD Unavailable Encounter Details Date Type Department Care Team (Late st Contact Info) Description 01/04/2022 Procedure Pass [facility] Admitting Dept Virtual Department 30 [place] [address] Social History Tobacco Use Types Packs/Day Years [...] 2:27 AM EDT Marshall Shabazz RN * [place] Suicide Severity Rating Scale (Screener/Recent Self-Report) Question [...] Info) Description 09/16/2025 1:45 PM EST Appointment [facility] [address] [place] [address] Aliyah Broderick MD [address] [place] [address] [email or web address] 11/25/2025 2:00 PM EDT Office Visit [facility] [address] [place] [address] Aliyah Broderick MD [address] [place] [address] documented as of this encounter Visit Diagnoses Not on filedocumented in this encounter Care Teams Senior Architectural Designer Relationship Specialty Start Date End Date Aliyah Broderick MD [address] [place] [address] PCP - General Family Medicine 10/03/21 Audelia Vyas PA-C [address] [place] [address] Physician Equipment Monitor Phototypesetting Hematology 11/15/21 Aliyah Broderick MD [address] [place] [address] Insurance Assigned Provider 12/22/23 06/27/25 documented as of this encounter Additional Source Comments The information contained in this document represents components of the legal health record. It is not the complete legal health record.[facility]
--- OUTSIDE RECORDS SUMMARY | 2025-08-05 13:27 | XMS_ITS | Encounter Summary ---
Author Organization [facility] Address [address] [place] [address] Phone Care Team Providers Care Material Movers Name Role Phone Aliyah Broderick MD Primary Care Provider [phone] Audelia Vyas PA-C Unavailable [phone] Reason for Visit * Reason Comments Medication Refill Encounter Details Date Type Department Care Team (Late st Contact Info) Description 08/05/2025 Refill [facility] [place] [facility] [address] [facility] [address] [place] [address] Sheryl Hughes MD, MPH [address] [facility] [address] [place] [address] [email or web address] Medication Refill Social History Tobacco Use Types Packs/Day Years [...] as of this encounter Progress Notes * Lisa Monteiro MA - 08/05/2025 9:38 AM EST Rx Care Gap Status - Instructions for Clinical Staff (prescriber discretion applies): > Mismatch review guide > N/a - No action needed Visit Info Last visit: 11/10/2024 Aliyah Broderick MD - Primary Care [facility] PRIMARY OXBOW > Requested f/u: Not specified Upcoming visit: 11/25/2025 Aliyah Broderick MD - Primary Care [facility] PRIMARY OXBOW ACTIONS TAKEN BY Lisa Monteiro MA - Criteria met. Gastrointestinal Rx Protocol (H2 blockers, PPIs, stool softeners, laxatives) - famotidine Criteria met; renew for up to 12 months. Visit in the past 24 months: Yes documented in this encounter Plan of Treatment Upcoming Encounters Date Type Department Care Team (Late st Contact Info) Description 09/16/2025 1:45 PM EST Appointment [facility], [address] [address] Aliyah Broderick MD [address] [place] [phone] [email or web address] 11/25/2025 2:00 PM EDT Office Visit [facility] [place] [facility] [address] [address] Aliyah Broderick MD [address] [place] [phone] [email or web address] documented as of this encounter Visit Diagnoses Not on filedocumented in this encounter Additional Health Concerns Assessment Noted Time PHQ-9 Depression Total Score: 16 025 2:45 PM EST PHQ-2 Depression Total Score: 4 11/10/19 25 2:45 PM EST documented as of this encounter Care Teams Material Movers Relationship Specialty Start Date End Date Aliyah Broderick MD [address] [place] [phone] [email or web address] PCP - General Family Medicine 10/03/21 Audelia Vyas PA-C [address] [place] [phone] [email or web address] Physician Tensile Tester Hematology 11/15/21 documented as of this encounter Additional Source Comments The information contained in this document represents components of the legal health record. It is not the complete legal health record.[facility]
--- OUTSIDE RECORDS SUMMARY | 2025-08-05 13:27 | XMS_ITS | Encounter Summary ---
Author Organization [facility] Address [address] [facility] [facility] [address] [place] [id number] Phone Care Team Providers Care Windows Application Packager Name Role Phone Aliyah Broderick MD Primary Care Provider [phone] Audelia Vyas PA-C Unavailable [phone] Encounter Details Date Type Department Care Team (Late st Contact Info) Description 08/05/2025 Orders Only [facility] Medicine [address] [place] [address] Provider, MD Toma [address] [place] [id number] Social History Tobacco Use Types Packs/Day Years [...] Info) Description 09/16/2025 1:45 PM EST Appointment [facility] - [address] [address] Aliyah Broderick MD [address] [place] [phone] 11/25/2025 2:00 PM EDT Office Visit [facility] [place] [facility] [address] [facility] [address] [place] [address] Aliyah Broderick MD [address] [address] [email or web address] documented as of this encounter Procedures Procedure Name Priority Date/Time Associated Diagnosis Comments OUTSIDE IMAGING Routine 08/04/2025 9:35 AM EST documented in this encounter Results * Outside Imaging Report Only (08/04/2025 9:35 AM EST) us Historical Provider IMNena XR CHEST Final Res ult documented in this encounter Visit Diagnoses Not on filedocumented in this encounter Additional Health Concerns Assessment Noted Time PHQ-9 Depression Total Score: 16 025 2:45 PM EST PHQ-2 Depression Total Score: 4 11/10/19 25 2:45 PM EST documented as of this encounter Care Teams Windows Application Packager Relationship Specialty Start Date End Date Aliyah Broderick MD [address] [address] [email or web address] PCP - General Family Medicine 10/03/21 Audelia Vyas PA-C [address] [place] [phone] [email or web address] Physician Visitor Services Information Assistant Hematology 11/15/21 documented as of this encounter Additional Source Comments The information contained in this document represents components of the legal health record. It is not the complete legal health record.[facility]
--- NOTE | 2025-08-05 13:38 | PC.NURSE ---
Dr. Hare notified patient wanted to leave states she feels better. tele: sinus ryhtym with frequent PVC's every 2-4 beats. Patient notified she needed an EEG per Dr. Hare. Patient states she will stay if necessary.
--- NOTE | 2025-08-05 15:02 | PM.EVENT ---
Event Note Date of Service: 08/05/25 Event Note: Patient seen and examined at bedside this morning, patient's mentation has improved, waiting to be seen by General surgery. MRI with no findings, per Neurology suggested on obtaining EEG. Time Spent With Patient Time: Total time managing care of this patient today ____ minutes.
[2025-08-06 03:16] VITALS: BP 142/65; PULSE 66; RESP 18; TEMP 36.6; O2SAT 95
[2025-08-06 07:32] VITALS: BP 143/71; PULSE 77; RESP 20; TEMP 36.8; O2SAT 94
--- NOTE | 2025-08-06 07:56 | PM.PNGS ---
Subjective Subjective Date of Service: 08/06/25 <Bren Anaya PA-C - Last Filed: 08/06/25 07:59> 08/06/25 <Trent Hazel MD - Last Filed: 08/06/25 08:00> Interval history: Did not sleep well overnight. Denies any abdominal pain, nausea, vomiting, diarrhea. <Bren Anaya PA-C - Last Filed: 08/06/25 07:59> Physical Exam Vital Signs: Vital Signs: Last Vital Signs Temp 98.2 F 08/06/25 07:32 Pulse 77 08/06/25 07:32 Resp 20 08/06/25 07:32 BP 143/71 H 08/06/25 07:32 Pulse Ox 94 08/06/25 07:32 O2 Del Method Room Air 08/06/25 07:32 BMI result Body Mass Index 22.7 <Bren Anaya PA-C - Last Filed: 08/06/25 07:59> Const: General: comfortable, no acute distress and alert <Bren Anaya PA-C - Last Filed: 08/06/25 07:59> GI: Other: abdomen nontender, soft, nondistended <Bren Anaya PA-C - Last Filed: 08/06/25 07:59> Skin: General skin exam: no rashes or lesions noted <Bren Anaya PA-C - Last Filed: 08/06/25 07:59> Neuro: General: moves all extremities <Bren Anaya PA-C - Last Filed: 08/06/25 07:59> Objective Data Active Medications Acetaminophen (Acetaminophen 325 Mg Tablet) 650 mg PO Q6H PRN PRN Reason: Pain, Mild 1-3,fever,headache Last Admin: 08/06/25 02:37 Dose: 650 mg Documented By: ARIK Aspirin (Aspirin Enteric Coated 81 Mg Tablet.) 81 mg PO DAILY [facility] Last Admin: 08/05/25 09:23 Dose: 81 mg Documented By: SHAKEEL Bupropion HCl (Bupropion Hcl Xl 300 Mg Tab.Er.24h) 300 mg PO DAILY [facility] Last Admin: 08/05/25 09:23 Dose: 300 mg Documented By: SHAKEEL Calcium Carbonate (Calcium Carbonate 750 Mg Tab.Chew) 750 mg PO Q4H PRN PRN Reason: Heartburn Escitalopram Oxalate (Escitalopram Oxalate 10 Mg Tablet) 10 mg PO DAILY [facility] Last Admin: 08/05/25 09:23 Dose: 10 mg Documented By: SHAKEEL Famotidine (Famotidine 20 Mg Tablet) 20 mg PO BID [facility] Last Admin: 08/05/25 19:51 Dose: 20 mg Documented By: ARIK Heparin Sodium (Porcine) (Heparin Sodium,Porcine 5,000 Unit/Ml Vial) 5,000 unit SUBCUT Q8H [facility] Last Admin: 08/06/25 01:15 Dose: 5,000 unit Documented By: ARIK Loratadine (Loratadine 10 Mg Tablet) 10 mg PO DAILY [facility] Last Admin: 08/05/25 09:23 Dose: 10 mg Documented By: SHAKEEL Magnesium Hydroxide (Milk Of Magnesia 30 Ml Oral.Susp) 30 ml PO DAILY PRN PRN Reason: Constipation Melatonin (Melatonin 3 Mg Tablet) 6 mg PO BEDTIME PRN PRN Reason: Insomnia Sodium Chloride (0.9 % Sodium Chloride Flush 3 Ml Syringe) 3 ml IVFLUSH QSHIFT [facility] Last Admin: 08/05/25 19:51 Dose: 3 ml Documented By: ARIK <Bren Anaya PA-C - Last Filed: 08/06/25 07:59> Labs CBC & Chem 7: 08/05/25 04:40 08/05/25 04:40 <Bren Anaya PA-C - Last Filed: 08/06/25 07:59> Procedures Date of Service Date of Service: 08/06/25 <Bren Anaya PA-C - Last Filed: 08/06/25 07:59> 08/06/25 <Trent Hazel MD - Last Filed: 08/06/25 08:00> Progress Note: A&P Assessment and plan (1) Transient global amnesia: Status: Acute <Bren Anaya PA-C - Last Filed: 08/06/25 07:59> Assessment and Plan: She seems alert today Denies abdominal pain Denies nausea or vomiting Says she feels well Abdomen, soft, benign without any significant tenderness No surgical intervention indicated Seen and examined independently <Trent Hazel MD - Last Filed: 08/06/25 08:00> (2) Acute alteration in mental status: Status: Acute <Bren Anaya PA-C - Last Filed: 08/06/25 07:59> Assessment and Plan: Admitted with altered mental status, aphasia. CT abd pelvis performed on admission showed again enlarged appendix without surrounding inflammatory changes. She has no abdominal pain, exam remains very benign and she is nontender. Clinically not acute appendicitis. Will sign off, please reconsult with clinical changes. <Bren Anaya PA-C - Last Filed: 08/06/25 07:59> Time Spent With Patient Time: Total time managing care of this patient today ____ minutes. <Bren Anaya PA-C - Last Filed: 08/06/25 07:59> Quality Stroke Does the patient have a stroke diagnosis?: No <Bren Anaya PA-C - Last Filed: 08/06/25 07:59> VTE Prior VTE?: No <Bren Anaya PA-C - Last Filed: 08/06/25 07:59> VTE Risk Level:: Medical - moderate - high <Bren Anaya PA-C - Last Filed: 08/06/25 07:59> VTE Device Contraindication: N/A - Device Ordered <Bren Anaya PA-C - Last Filed: 08/06/25 07:59> VTE Drug Contraindication: Treatment Not Indicated <Bren Anaya PA-C - Last Filed: 08/06/25 07:59>
[2025-08-06] MEDS: 0.9 % Sodium Chloride Flush 3 ML SYRINGE IVFLUSH (08:07)
[2025-08-06] MEDS: buPROPion HCl XL 300 MG TAB.ER.24H PO (08:07)
[2025-08-06] MEDS: Aspirin Enteric Coated 81 MG TABLET.DR PO (08:07)
[2025-08-06 11:43] VITALS: BP 142/66; PULSE 79; RESP 18; TEMP 36.2; O2SAT 96
--- NOTE | 2025-08-06 13:57 | P.PNIM_ITS ---
Subjective Subjective Date of Service: 08/06/25 Interval History: Patient seen examined at bedside this morning, patient at this time with mentation at baseline. EEG report pending. Review of Systems Review of Systems: Yes all other systems are reviewed and are negative Physical Exam 2 Exam: Exam: General: AxOx3, No acute distress Head: AT/NC ENT: Moist mucous membranes Neck: supple CVS; RRR, S1 S2 normal Lungs: Clear bilateral breath sounds, no wheezes or crackles Abd: Soft non tender, non distended Ext: No edema and no calf tenderness MSK: moving all 4 limbs Skin: No cyanosis or edema Psych: Cooperative with exam Neurology: no focal deficit Vital Signs: Vital Signs: Last Vital Signs Temp 97.2 F 08/06/25 11:43 Pulse 79 08/06/25 11:43 Resp 18 08/06/25 11:43 BP 142/66 H 08/06/25 11:43 Pulse Ox 96 08/06/25 11:43 O2 Del Method Room Air 08/06/25 11:43 BMI result Body Mass Index 22.7 Objective Data Active Medications Acetaminophen (Acetaminophen 325 Mg Tablet) 650 mg PO Q6H PRN PRN Reason: Pain, Mild 1-3,fever,headache Last Admin: 08/06/25 02:37 Dose: 650 mg Documented By: ARIK Aspirin (Aspirin Enteric Coated 81 Mg Tablet.) 81 mg PO DAILY [facility] Last Admin: 08/06/25 08:07 Dose: 81 mg Documented By: AYSHA Bupropion HCl (Bupropion Hcl Xl 300 Mg Tab.Er.24h) 300 mg PO DAILY [facility] Last Admin: 08/06/25 08:07 Dose: 300 mg Documented By: AYSHA Calcium Carbonate (Calcium Carbonate 750 Mg Tab.Chew) 750 mg PO Q4H PRN PRN Reason: Heartburn Escitalopram Oxalate (Escitalopram Oxalate 10 Mg Tablet) 10 mg PO DAILY [facility] Last Admin: 08/06/25 08:07 Dose: 10 mg Documented By: AYSHA Famotidine (Famotidine 20 Mg Tablet) 20 mg PO BID [facility] Last Admin: 08/06/25 08:07 Dose: 20 mg Documented By: AYSHA Heparin Sodium (Porcine) (Heparin Sodium,Porcine 5,000 Unit/Ml Vial) 5,000 unit SUBCUT Q8H [facility] Last Admin: 08/06/25 08:07 Dose: 5,000 unit Documented By: AYSHA Loratadine (Loratadine 10 Mg Tablet) 10 mg PO DAILY [facility] Last Admin: 08/06/25 08:07 Dose: 10 mg Documented By: AYSHA Magnesium Hydroxide (Milk Of Magnesia 30 Ml Oral.Susp) 30 ml PO DAILY PRN PRN Reason: Constipation Melatonin (Melatonin 3 Mg Tablet) 6 mg PO BEDTIME PRN PRN Reason: Insomnia Sodium Chloride (0.9 % Sodium Chloride Flush 3 Ml Syringe) 3 ml IVFLUSH QSHIFT [facility] Last Admin: 08/06/25 08:07 Dose: 3 ml Documented By: AYSHA Labs 08/05/25 04:40 08/05/25 04:40 Assessment and Plan (1) Aphasia: Status: Acute (2) Acute periumbilical pain: Status: Acute Plan 70-year-old female with a past medical history of anxiety, depression, GERD; recent admission to the hospital for possible appendicitis-treated with IV antibiotics; presented to the hospital today with a chief complaint of altered mental status. Encephalopathy, improved, could be secondary to possible seizure, awaiting EEG Aphasia, improved CT head and CT angio head and neck showed no acute findings MRI brain with no evidence of intracranial hemorrhage, acute infarction, mass effect or edema, with mild white matter changes of small-vessel ischemia. Neurology consulted, suggested on obtaining EEG, awaiting for report to be read. TTE with no valvular pathology, EF of 65-70% with no wall motion abnormalities Abdominal discomfort: Abdominal pain, resolved -CT scan reviewed, assessed by General surgery, with no findings suggestive of acute appendicitis. Hold off antibiotics for now DVT prophylaxis: Subcu heparin Code status: Full code Total time managing care of this patient today: 35 minutes. Quality Stroke Does the patient have a stroke diagnosis?: No VTE Prior VTE?: No VTE Risk Level:: Medical - moderate - high VTE Device Contraindication: N/A - Device Ordered VTE Drug Contraindication: Treatment Not Indicated
--- NOTE | 2025-08-06 14:45 | PM.DS ---
DS: Providers Provider Date of Service: 08/06/25 Date of admission: 08/04/25 19:57 Date of discharge: 08/06/25 Primary care physician: Aliyah Broderick MD Consults: 08/04/25 19:58 Consult to Neurology Routine Consulting Provider: Shanta Bradford Reason for consultation: Forgetfull; Amnesia; TIA 08/05/25 04:18 Consult to General Surgery Routine Consulting Provider: [facility] General Surgeons Reason for consultation: Abdominal discomfort DS: Diagnosis Discharge Diagnosis (1) Aphasia: Status: Acute (2) Acute periumbilical pain: Status: Acute DS: Summary Hospital Course Hospital Course: 70-year-old female with a past medical history of anxiety, depression, GERD; recent admission to the hospital for possible appendicitis-treated with IV antibiotics; presented to the hospital today with a chief complaint of altered mental status. MRI with no evidence of intracranial hemorrhage, CT head and CT angio neck with no acute findings. EEG with no obvious finding for seizures, spoke with Neurology suggested on following up as an outpatient. Encephalopathy resolved Aphasia, resolved CT head and CT angio head and neck showed no acute findings MRI brain with no evidence of intracranial hemorrhage, acute infarction, mass effect or edema, with mild white matter changes of small-vessel ischemia. Neurology consulted, EEG with no acute findings for seizure, suggested on following up as outpatient TTE with no valvular pathology, EF of 65-70% with no wall motion abnormalities Abdominal pain, resolved -CT scan reviewed, assessed by General surgery, with no findings suggestive of acute appendicitis. Time Attestation Discharge Coordination Time (in mins): 35 minutes Quality: Safe Use of Opioids Does Pt have an Active Cancer Diagnosis on the Problem List?: No Quality: Stroke Does the patient have a stroke diagnosis?: No Physical Exam Exam: Exam: General: AxOx3, No acute distress Head: AT/NC ENT: Moist mucous membranes Neck: supple CVS; RRR, S1 S2 normal Lungs: Clear bilateral breath sounds, no wheezes or crackles Abd: Soft non tender, non distended Ext: No edema and no calf tenderness MSK: moving all 4 limbs Skin: No cyanosis or edema Psych: Cooperative with exam Neurology: no focal deficit Vital Signs: Vital Signs: Last Vital Signs Temp 97.2 F 08/06/25 11:43 Pulse 79 08/06/25 11:43 Resp 18 08/06/25 11:43 BP 142/66 H 08/06/25 11:43 Pulse Ox 96 08/06/25 11:43 O2 Del Method Room Air 08/06/25 11:43 BMI result Body Mass Index 22.7 Discharge Plan Discharge Anticipated Discharge Date/Time: 08/06/25 14:40 Patient Disposition: Home, Self-Care Discharge Diagnosis: Encephalopathy Aphasia Referrals: Shanta Bradford MD [Physician, Neurology] - 1 Week Aliyah Broderick MD [Primary Care Provider, Internal Medicine] - 1 Week Discharge Medications: Continued fluticasone propionate [Flonase Allergy Relief] 50 mcg/actuation spray,suspension 1 spray intranasal DAILY Qty: 16 0RF Rx Instructions: administer into each nostril aspirin 81 mg Tablet,Delayed Release (Dr/Ec) 81 mg PO DAILY Tobradex ST 0.3-0.05 % drops,suspension 1 drp ophthalmic-Right DAILY cetirizine [Zyrtec] 10 mg Tablet 10 mg PO DAILY esomeprazole magnesium [Nexium] 20 mg Capsule,Delayed Release(Dr/Ec) 20 mg PO DAILY escitalopram oxalate 10 mg tablet 10 mg PO DAILY bupropion HCl 300 mg tablet extended release 24 hr 300 mg PO DAILY famotidine 20 mg tablet 20 mg PO BID Discharge Orders: Discharge Order (Routine); Ordered 08/06/25 Ordered By: Akbar Franco Activity on Discharge: As tolerated Stand Alone Forms: Patient Portal Discharge page Print Language: Slovenian Care Plan Goals: continue to monitor mental status follow up with neurology as outpatient Health Concerns: aphasia, MRI and EEG with no acute findings Follow up with neurology as outpatient Plan of Treatment: continue home medications follow up with neurology as outpatient Assessment: 70-year-old female with a past medical history of anxiety, depression, GERD; recent admission to the hospital for possible appendicitis-treated with IV antibiotics; presented to the hospital today with a chief complaint of altered mental status. MRI with no evidence of intracranial hemorrhage, CT head and CT angio neck with no acute findings. EEG with no obvious finding for seizures Patient Instructions: Aphasia (DC)
--- NOTE | 2025-08-06 15:36 | MHC.CM.PN ---
PT CLEARED TO [facility] WITH NO SERVICES VIA SELF TRANSPORT
== END 2025-08-06 15:12 | disposition home or self-care (01) | DRG 71 ==
LOC: HO.ED 18:59 → HO.EDOVER 20:03 → HO.IMC 08-05 16:27
PROVIDERS: Physician Assistant Medical; Admitting Provider Hospitalist; Emergency Provider Emergency Medicine; PCP Family Medicine; Visit Provider Student in an Organized Health Care Education/Training Program
DX: G93.40 Encephalopathy, unspecified (principal); R47.01 Aphasia; G45.4 Transient global amnesia; Z79.82 Long term (current) use of aspirin; Z79.899 Other long term (current) drug therapy
CPT/HCPCS: 36415; 70450; 70496; 70498; 70551; 74176; 80048; 80053; 80061; 80076; 80307; 81001; 82607; 82746; 82947; 83690; 83735; 84425; 84443; 85025; 85610; 85652; 86140; 86780; 93005; 93306; 95816; 97161; 97165; 97530; 99222; 99285; J1644; Q9957; Q9967

== ENCOUNTER → 2025-08-04 17:20 | Outpatient (BNV) | payer MEDICARE, SELFPAY | PROVIDERS: Emergency Provider Emergency Medicine; PCP Family Medicine; Visit Provider Specialist | DX: R41.0 Disorientation, unspecified (principal); K38.8 Other specified diseases of appendix; R47.01 Aphasia | CPT/HCPCS: 70450; 70496; 70498; 74176 ==

== ENCOUNTER → 2025-08-04 18:56 | Outpatient (BNV) | payer MEDICARE, SELFPAY | PROVIDERS: Admitting Provider Hospitalist; Emergency Provider Emergency Medicine; PCP Family Medicine; Visit Provider Internal Medicine | DX: I49.3 Ventricular premature depolarization (principal); I45.10 Unspecified right bundle-branch block | CPT/HCPCS: 93010 ==

== ENCOUNTER 2025-08-04 19:57 | Outpatient (BNV) | payer MEDICARE, SELFPAY | END 2025-08-05 07:00 | PROVIDERS: Admitting Provider Hospitalist; Emergency Provider Emergency Medicine; PCP Family Medicine; Visit Provider Internal Medicine | DX: I25.3 Aneurysm of heart (principal) | CPT/HCPCS: 93306 ==

== ENCOUNTER 2025-08-04 19:57 | Outpatient (BNV) | payer MEDICARE, SELFPAY | END 2025-08-05 15:00 | PROVIDERS: Admitting Provider Hospitalist; Emergency Provider Emergency Medicine; PCP Family Medicine; Visit Provider Psychiatry & Neurology Neurology | DX: R94.01 Abnormal electroencephalogram [EEG] (principal); G93.40 Encephalopathy, unspecified | CPT/HCPCS: 95816 ==

== ENCOUNTER 2025-08-04 19:57 | Outpatient (BNV) | payer MEDICARE, SELFPAY | END 2025-08-05 11:44 | PROVIDERS: Admitting Provider Hospitalist; Emergency Provider Emergency Medicine; PCP Family Medicine; Visit Provider Radiology Diagnostic Radiology | DX: I67.82 Cerebral ischemia (principal); R90.82 White matter disease, unspecified | CPT/HCPCS: 70551 ==

== ENCOUNTER → 2025-08-04 19:57 | Outpatient (BNV) | payer MEDICARE, SELFPAY | PROVIDERS: Admitting Provider Hospitalist; Emergency Provider Emergency Medicine; PCP Family Medicine; Visit Provider Psychiatry & Neurology Neurology | DX: G45.4 Transient global amnesia (principal) | CPT/HCPCS: 99222 ==

== ENCOUNTER → 2025-08-04 19:57 | Outpatient (BNV) | payer MEDICARE, SELFPAY | PROVIDERS: Admitting Provider Hospitalist; Emergency Provider Emergency Medicine; PCP Family Medicine; Visit Provider Student in an Organized Health Care Education/Training Program | DX: R47.01 Aphasia (principal); R10.33 Periumbilical pain; R41.82 Altered mental status, unspecified | CPT/HCPCS: 99222; 99239; 99499 ==

== ENCOUNTER → 2025-08-04 19:57 | Outpatient (BNV) | payer MEDICARE, SELFPAY | PROVIDERS: Admitting Provider Hospitalist; Emergency Provider Emergency Medicine; PCP Family Medicine; Visit Provider Physician Assistant Surgical | DX: G45.4 Transient global amnesia (principal); R41.82 Altered mental status, unspecified | CPT/HCPCS: 99222; 99232 ==